=== PATIENT | female | born 1955 | race Caucasian/White ===

== ENCOUNTER 2017-10-17 11:58 | Emergency (ER) | payer MEDICARE, OTHER, SELFPAY ==
[2017-10-17 12:06] VITALS: BP 154/59; PULSE 74; RESP 18; TEMP 36.7; O2SAT 99
--- NOTE | 2017-10-17 12:09 | DI.RAD.S_ITS ---
PROCEDURE: XR TIBIA FUBULA RT 2V INDICATIONS: possible osteo TECHNIQUE: 2 views of the tibia and fibula were acquired. COMPARISON: None. FINDINGS: Bones: No fractures or dislocations. No suspicious bony lesions. Soft tissues: No suspicious soft tissue calcifications or masses. IMPRESSION: No source of current pain is identified, no underlying foreign body or gas in the soft tissues is seen and no osteomyelitis is found. Dictated by: Gustavo Land M.D. on 10/17/2017 at 12:44 Approved by: Gustavo Land M.D. on 10/17/2017 at 12:45
--- NOTE | 2017-10-17 12:12 | ED.EXTPRO ---
HPI - Extremity Problem <Debbie Mancini PA-C - Last Filed: 10/17/17 20:34> General Chief complaint: Extremity Injury, Lower Stated complaint: DR CALLED OVER ABOUT RIGHT LEG Time Seen by Provider: 10/17/17 12:09 Source: patient and old records reviewed Mode of arrival: ambulatory Limitations: no limitations History of Present Illness HPI Narrative: This 61-year-old female was sent by her PCP today to evaluate for possible recurrent osteomyelitis of her left lower extremity. She was admitted here and of last year for postoperative cellulitis and chronic osteomyelitis. She states that on Sunday night, she began to notice skin breakdown, pain, and pus draining from her left bryan area. She states that she had numerous cat flea bites in the area that she had been scratching, no other injury. She states that she has noted increased redness and pain as well as itching. She states that pain is deep like she had previously with infection. She has not had any fever. She denies other new symptoms such as swelling, chest pain, nausea, vomiting or appetite change. She notes that she is being referred for some type of a vascular study as well, not exactly sure what for Related Data Home Medications Medication Instructions Recorded Confirmed HYPROMELLOSE (Genteal Mild) 15 ml OP BID PRN #0 02/08/17 Lactobacillus acidophilus 1 tab PO QDAY #0 02/08/17 MULTIVITAMIN/MINERALS (ICAPS PLUS) 1 tab PO QDAY #0 02/08/17 albuterol sulfate [Proventil HFA] 1 puff INH Q6H PRN #0 02/08/17 aspirin 325 mg PO QDAY #0 02/08/17 clobetasol-emollient 1 dereje TOPICAL BID PRN #0 02/08/17 gabapentin [Neurontin] 1,200 mg PO QPM #0 02/08/17 ibuprofen 400 mg PO Q6HP PRN #0 02/08/17 insulin aspart U-100 [Novolog unit SQ TIDAC #0 02/08/17 PenFill U-100 Insulin] levothyroxine [Synthroid] 175 u PO QDAY #0 02/08/17 losartan-hydrochlorothiazide 1 tab PO QDAY #0 02/08/17 [Hyzaar] nifedipine [Afeditab CR] 30 mg PO QDAY #0 02/08/17 rosuvastatin [Crestor] 10 mg PO Q DAY #0 02/08/17 venlafaxine 150 mg PO QDAY #0 02/08/17 Previous Rx's Medication Instructions Recorded daptomycin [Cubicin] 400 mg IV QDAY #60 ml 02/12/17 insulin detemir U-100 [Levemir 38 u SQ HS #10 ml 02/12/17 U-100 Insulin] doxycycline hyclate 100 mg PO BID 10 Days #20 cap 10/17/17 Allergies Allergy/AdvReac Type Severity Reaction Status Date / Time codeine [CODEINE] Allergy Unknown Unverified 06/06/17 12:37 daptomycin Allergy Verified 10/17/17 12:08 ondansetron [From Zofran] AdvReac Vomiting Verified 10/17/17 12:08 Review of Systems <Debbie Mancini PA-C - Last Filed: 10/17/17 20:34> Review of Systems All systems reviewed & are unremarkable except as noted in HPI and below PFSH <Debbie Mancini PA-C - Last Filed: 10/17/17 20:34> Comment: No EtOH or tobacco, lives at home with Exam <Debbie Mancini PA-C - Last Filed: 10/17/17 20:34> Narrative Exam Narrative: GENERAL APPEARANCE: Patient sitting comfortably, in no distress. Appears well NECK/THYROID: Neck supple, no JVD. LUNGS: Clear to auscultation bilaterally. HEART: Regular rate and rhythm without murmur, normal S1, S2, no S3 or S4. ABDOMEN: Soft, NT, ND, + BS x 4 quadrants EXTREMITIES: No cyanosis or edema. No calf tenderness. R. toes absent, PT and DP pulses intact. NEUROLOGIC: Alert and oriented, normal speech and coordination. DERM: R. mid bryan there is shallow irregular ulceration, patchy (stage II) with a thin layer of overlying slough and some granulation tissue visual. This extends to the medial and posterior sides with normal skin in between. Largest dimension 9 cm. No pus or active drainage. There is mild circumferential erythema surrounding which is barely warm to touch. Area is minimally tender. There are multiple small scabbed, dry excoriations extending from the proximal anterior wound border proximally to about the knee. Similar lesions on the L. bryan with less pronounced erythema/rudiness Initial Vital Signs Initial Vital Signs: Vital Signs Temperature 98.1 F 10/17/17 12:06 Pulse Rate 74 10/17/17 12:06 Respiratory Rate 18 10/17/17 12:06 Blood Pressure 154/59 H 10/17/17 12:06 Pulse Oximetry 99 10/17/17 12:06 <Jluis Ross DO - Last Filed: 10/18/17 07:10> Initial Vital Signs Initial Vital Signs: Vital Signs Temperature 98.1 F 10/17/17 12:06 Pulse Rate 74 10/17/17 12:06 Respiratory Rate 18 10/17/17 12:06 Blood Pressure 154/59 H 10/17/17 12:06 Pulse Oximetry 99 10/17/17 12:06 Course <Debbie Mancini PA-C - Last Filed: 10/17/17 20:34> Additional Information: Reviewed exam findings and diagnostics with Dr. Ross who agrees reasonable to treat as outpatient. She does not appear to need IV antibiotic today. Due to her history, will have her follow up with Dr. Razo at wound care whom she was seeing after her last hospitalization. She is agreeable with this plan. She is scratching at her legs frequently and we discussed this is undoubtedly contributing to or causing her ulcers and infection. We talked about other ways to cope with the itching. She agreed to return if any acutely worsening symptoms prior to her appointment with wound care Orders Ordered: ED Orders 10/17/17 12:00 Basic Metabolic Panel Stat C-Reactive Protein Quant Stat Complete Blood Count AUTO DIFF Stat Erythrocyte Sedimentation Rate Stat Lactate (Lactic Acid) Stat Procalcitonin Stat 10/17/17 12:09 XR tibia fibula RT 2V Stat 10/17/17 13:23 Blood Culture Stat Vital Signs - 8 hr 10/17/17 13:40 10/17/17 14:48 Temperature 98.0 F 98.9 F Pulse Rate 70 73 Respiratory Rate 16 16 Blood Pressure [Left Arm] 144/44 H 126/49 H Pulse Oximetry 97 96 <Jluis Ross DO - Last Filed: 10/18/17 07:10> Orders Ordered: ED Orders 10/17/17 12:00 Basic Metabolic Panel Stat C-Reactive Protein Quant Stat Complete Blood Count AUTO DIFF Stat Erythrocyte Sedimentation Rate Stat Lactate (Lactic Acid) Stat Procalcitonin Stat 10/17/17 12:09 XR tibia fibula RT 2V Stat 10/17/17 13:23 Blood Culture Stat Vital Signs - 8 hr 10/17/17 13:40 10/17/17 14:48 Temperature 98.0 F 98.9 F Pulse Rate 70 73 Respiratory Rate 16 16 Blood Pressure [Left Arm] 144/44 H 126/49 H Pulse Oximetry 97 96 MDM - Extremity (Nontraumatic) <Debbie Mancini PA-C - Last Filed: 10/17/17 20:34> Lab Data Result diagrams: 10/17/17 12:00 10/17/17 12:00 Lab Results 10/17/17 10/17/17 10/17/17 Range/Units 12:00 12:00 12:00 WBC 8.9 (4.5-11.0) X10^3/uL RBC 4.82 (4.0-5.2) X10^6/uL Hgb 14.3 (12.0-16.0) g/dL Hct 42.5 (36-46) % MCV 88.3 (80-100) fL MCH 29.6 (26-34) PG MCHC 33.6 (30-36) % RDW 13.4 (11.6-14.8) % Plt Count 280 (150-400) X10^3/uL Neut % (Auto) 54.9 (50-75) % Lymph % (Auto) 25.6 (25-40) % Calhoun % (Auto) 8.6 (3-14) % Eos % (Auto) 9.5 H (2-4) % Baso % (Auto) 1.4 (0-2) % Neut # (Auto) 4900 (0360-9624) /uL ESR 41 H (0-20) MM/HR Sodium Cancelled Potassium Cancelled Chloride Cancelled Carbon Dioxide Cancelled BUN Cancelled Creatinine Cancelled Estimated GFR Cancelled BUN/Creatinine Ratio Cancelled Glucose Cancelled Lactate (0.7-2.1) mmol/L Calcium Cancelled C-Reactive Protein (<1.0) mg/dL Procalcitonin < 0.05 (<0.5) ng/mL Specimen Hemolysis Cancelled 10/17/17 10/17/17 Range/Units 12:00 12:00 WBC (4.5-11.0) X10^3/uL RBC (4.0-5.2) X10^6/uL Hgb (12.0-16.0) g/dL Hct (36-46) % MCV (80-100) fL MCH (26-34) PG MCHC (30-36) % RDW (11.6-14.8) % Plt Count (150-400) X10^3/uL Neut % (Auto) (50-75) % Lymph % (Auto) (25-40) % Calhoun % (Auto) (3-14) % Eos % (Auto) (2-4) % Baso % (Auto) (0-2) % Neut # (Auto) (7102-0539) /uL ESR (0-20) MM/HR Sodium 139 Potassium 5.0 Chloride 98 Carbon Dioxide 32 BUN 56 H Creatinine 1.00 Estimated GFR 56.4 L BUN/Creatinine Ratio 56.0 H Glucose 304 H Lactate 0.8 (0.7-2.1) mmol/L Calcium 9.8 C-Reactive Protein 2.5 H (<1.0) mg/dL Procalcitonin (<0.5) ng/mL Specimen Hemolysis Imaging Data extremity: Radiologist's impression: [place] [address] XRay Report Signed Patient: Kemi Alberto MR#: [id number] : 1955 Acct:[id number] Age/Sex: 61 / F Date of Service: 10/17/17 Loc: ED Accession Number: [id number] Procedure: XR tibia fibula RT 2V Ordering Provider: Jluis Ross D.O. PROCEDURE: XR TIBIA FUBULA RT 2V INDICATIONS: possible osteo TECHNIQUE: 2 views of the tibia and fibula were acquired. COMPARISON: None. FINDINGS: Bones: No fractures or dislocations. No suspicious bony lesions. Soft tissues: No suspicious soft tissue calcifications or masses. IMPRESSION: No source of current pain is identified, no underlying foreign body or gas in the soft tissues is seen and no osteomyelitis is found. Dictated by: Gustavo Land M.D. on 10/17/2017 at 12:44 Approved by: Gustavo Land M.D. on 10/17/2017 at 12:45 <Jluis Ross DO - Last Filed: 10/18/17 07:10> Lab Data Lab Results 10/17/17 10/17/17 10/17/17 Range/Units 12:00 12:00 12:00 WBC 8.9 (4.5-11.0) X10^3/uL RBC 4.82 (4.0-5.2) X10^6/uL Hgb 14.3 (12.0-16.0) g/dL Hct 42.5 (36-46) % MCV 88.3 (80-100) fL MCH 29.6 (26-34) PG MCHC 33.6 (30-36) % RDW 13.4 (11.6-14.8) % Plt Count 280 (150-400) X10^3/uL Neut % (Auto) 54.9 (50-75) % Lymph % (Auto) 25.6 (25-40) % Calhoun % (Auto) 8.6 (3-14) % Eos % (Auto) 9.5 H (2-4) % Baso % (Auto) 1.4 (0-2) % Neut # (Auto) 4900 (8322-0788) /uL ESR 41 H (0-20) MM/HR Sodium Cancelled Potassium Cancelled Chloride Cancelled Carbon Dioxide Cancelled BUN Cancelled Creatinine Cancelled Estimated GFR Cancelled BUN/Creatinine Ratio Cancelled Glucose Cancelled Lactate (0.7-2.1) mmol/L Calcium Cancelled C-Reactive Protein (<1.0) mg/dL Procalcitonin < 0.05 (<0.5) ng/mL Specimen Hemolysis Cancelled 10/17/17 10/17/17 Range/Units 12:00 12:00 WBC (4.5-11.0) X10^3/uL RBC (4.0-5.2) X10^6/uL Hgb (12.0-16.0) g/dL Hct (36-46) % MCV (80-100) fL MCH (26-34) PG MCHC (30-36) % RDW (11.6-14.8) % Plt Count (150-400) X10^3/uL Neut % (Auto) (50-75) % Lymph % (Auto) (25-40) % Calhoun % (Auto) (3-14) % Eos % (Auto) (2-4) % Baso % (Auto) (0-2) % Neut # (Auto) (9804-9050) /uL ESR (0-20) MM/HR Sodium 139 Potassium 5.0 Chloride 98 Carbon Dioxide 32 BUN 56 H Creatinine 1.00 Estimated GFR 56.4 L BUN/Creatinine Ratio 56.0 H Glucose 304 H Lactate 0.8 (0.7-2.1) mmol/L Calcium 9.8 C-Reactive Protein 2.5 H (<1.0) mg/dL Procalcitonin (<0.5) ng/mL Specimen Hemolysis Discharge Plan Departure Patient Disposition: Home Clinical Impression: Cellulitis and abscess of leg Discharge Date/Time: 10/17/17 15:08 Interventions: ED Discharge Assessment Last Done: 10/17/17 15:08 Instructions: DI for Cellulitis -- Adult Activity Restrictions/Additional Instructions: You should return as we talked about if you have any acutely worsening symptoms, such as increased pain, swelling, redness, or new fever. Otherwise, please start on doxycycline today. I have sent in a prescription for that for you to [facility]. Your last staph infection was treatable by this. This infection is not necessarily related to that last infection that you had from your wound, but has cause some ulcerated skin on your leg. Please call or stop by Dr. Razo's office today and make sure you get in for a follow-up appointment in a few days to assess progress on the antibiotics. You must continuing to scratch this area or it is likely that the infection will get worse. You can try Zyrtec (cetirizine) 10 mg 1-2 times daily for the itching. This is less likely to make you sleepy than Benadryl. Apply an ice pack or heat if you feel itchy to interrupt the itch cycle. Keep the legs wrapped if you need to to avoid contaminating the wounds Prescriptions: New doxycycline hyclate 100 mg capsule 100 mg PO BID 10 Days Qty: 20 RF: 0 No Action clobetasol-emollient 0.05 % cream 1 dereje Topical BID PRNQty: 0 RF: 0 losartan-hydrochlorothiazide [Hyzaar] 100 MG/25 MG tablet 1 tab PO QDAY Qty: 0 RF: 0 HYPROMELLOSE (Genteal Mild) 15 ml OP BID PRNQty: 0 RF: 0 venlafaxine 150 MG capsule,extended release 24hr 150 mg PO QDAY Qty: 0 RF: 0 rosuvastatin [Crestor] 10 MG tablet 10 mg PO Q DAY Qty: 0 RF: 0 levothyroxine [Synthroid] 75 MCG tablet 175 u PO QDAY Qty: 0 RF: 0 gabapentin [Neurontin] 300 MG capsule 1,200 mg PO QPM Qty: 0 RF: 0 nifedipine [Afeditab CR] 30 MG tablet extended release 30 mg PO QDAY Qty: 0 RF: 0 insulin aspart U-100 [Novolog PenFill U-100 Insulin] 100 UNIT/1 ML cartridge SQ TIDAC Qty: 0 RF: 0 aspirin 325 MG tablet,delayed release (DR/EC) 325 mg PO QDAY Qty: 0 RF: 0 albuterol sulfate [Proventil HFA] 90 MCG/PUFF HFA aerosol inhaler 1 puff INH Q6H PRNQty: 0 RF: 0 ibuprofen 400 MG tablet 400 mg PO Q6HP PRNQty: 0 RF: 0 Lactobacillus acidophilus 1 EACH capsule 1 tab PO QDAY Qty: 0 RF: 0 MULTIVITAMIN/MINERALS (ICAPS PLUS) 1 tab PO QDAY Qty: 0 RF: 0 insulin detemir U-100 [Levemir U-100 Insulin] 100 UNIT/1 ML solution 38 u SQ HS Qty: 10 RF: 0 daptomycin [Cubicin] 500 MG recon soln 400 mg IV QDAY Qty: 60 RF: 0 Referrals: Reshma Lemus MD [Primary Care Provider] - Mook Razo MD [Physician] - <Jluis Ross DO - Last Filed: 10/18/17 07:10> Cosign ED Attending Jus Attestation: I was available for consultation during this patient's emergency department encounter
--- NOTE | 2017-10-17 12:16 | PC.NURSE ---
rt lower leg wounds r/t scratching flea bites reports worsening over several days, mild redness/tenderness at site, distal cms baseline per pt, denies nausea/fever/chills/dizziness or other sx
--- NOTE | 2017-10-17 12:27 | ED_ITS ---
HPI - Extremity Problem <Debbie Mancini PA-C - Last Filed: 10/17/17 20:34> General Chief complaint: Extremity Injury, Lower Stated complaint: DR CALLED OVER ABOUT RIGHT LEG Time Seen by Provider: 10/17/17 12:09 Source: patient and old records reviewed Mode of arrival: ambulatory Limitations: no limitations History of Present Illness HPI Narrative: This 61-year-old female was sent by her PCP today to evaluate for possible recurrent osteomyelitis of her left lower extremity. She was admitted here and of last year for postoperative cellulitis and chronic osteomyelitis. She states that on Sunday night, she began to notice skin breakdown, pain, and pus draining from her left bryan area. She states that she had numerous cat flea bites in the area that she had been scratching, no other injury. She states that she has noted increased redness and pain as well as itching. She states that pain is deep like she had previously with infection. She has not had any fever. She denies other new symptoms such as swelling, chest pain, nausea, vomiting or appetite change. She notes that she is being referred for some type of a vascular study as well, not exactly sure what for Related Data Home Medications Medication Instructions Recorded Confirmed HYPROMELLOSE (Genteal Mild) 15 ml OP BID PRN #0 02/08/17 Lactobacillus acidophilus 1 tab PO QDAY #0 02/08/17 MULTIVITAMIN/MINERALS (ICAPS PLUS) 1 tab PO QDAY #0 02/08/17 albuterol sulfate [Proventil HFA] 1 puff INH Q6H PRN #0 02/08/17 aspirin 325 mg PO QDAY #0 02/08/17 clobetasol-emollient 1 dereje TOPICAL BID PRN #0 02/08/17 gabapentin [Neurontin] 1,200 mg PO QPM #0 02/08/17 ibuprofen 400 mg PO Q6HP PRN #0 02/08/17 insulin aspart U-100 [Novolog unit SQ TIDAC #0 02/08/17 PenFill U-100 Insulin] levothyroxine [Synthroid] 175 u PO QDAY #0 02/08/17 losartan-hydrochlorothiazide 1 tab PO QDAY #0 02/08/17 [Hyzaar] nifedipine [Afeditab CR] 30 mg PO QDAY #0 02/08/17 rosuvastatin [Crestor] 10 mg PO Q DAY #0 02/08/17 venlafaxine 150 mg PO QDAY #0 02/08/17 Previous Rx's Medication Instructions Recorded daptomycin [Cubicin] 400 mg IV QDAY #60 ml 02/12/17 insulin detemir U-100 [Levemir 38 u SQ HS #10 ml 02/12/17 U-100 Insulin] doxycycline hyclate 100 mg PO BID 10 Days #20 cap 10/17/17 Allergies Allergy/AdvReac Type Severity Reaction Status Date / Time codeine [CODEINE] Allergy Unknown Unverified 06/06/17 12:37 daptomycin Allergy Verified 10/17/17 12:08 ondansetron [From Zofran] AdvReac Vomiting Verified 10/17/17 12:08 Review of Systems <Debbie Mancini PA-C - Last Filed: 10/17/17 20:34> Review of Systems All systems reviewed & are unremarkable except as noted in HPI and below PFSH <Debbie Mancini PA-C - Last Filed: 10/17/17 20:34> Comment: No EtOH or tobacco, lives at home with Exam <Debbie Mancini PA-C - Last Filed: 10/17/17 20:34> Narrative Exam Narrative: GENERAL APPEARANCE: Patient sitting comfortably, in no distress. Appears well NECK/THYROID: Neck supple, no JVD. LUNGS: Clear to auscultation bilaterally. HEART: Regular rate and rhythm without murmur, normal S1, S2, no S3 or S4. ABDOMEN: Soft, NT, ND, + BS x 4 quadrants EXTREMITIES: No cyanosis or edema. No calf tenderness. R. toes absent, PT and DP pulses intact. NEUROLOGIC: Alert and oriented, normal speech and coordination. DERM: R. mid bryan there is shallow irregular ulceration, patchy (stage II) with a thin layer of overlying slough and some granulation tissue visual. This extends to the medial and posterior sides with normal skin in between. Largest dimension 9 cm. No pus or active drainage. There is mild circumferential erythema surrounding which is barely warm to touch. Area is minimally tender. There are multiple small scabbed, dry excoriations extending from the proximal anterior wound border proximally to about the knee. Similar lesions on the L. bryan with less pronounced erythema/rudiness Initial Vital Signs Initial Vital Signs: Vital Signs Temperature 98.1 F 10/17/17 12:06 Pulse Rate 74 10/17/17 12:06 Respiratory Rate 18 10/17/17 12:06 Blood Pressure 154/59 H 10/17/17 12:06 Pulse Oximetry 99 10/17/17 12:06 <Jluis Ross DO - Last Filed: 10/18/17 07:10> Initial Vital Signs Initial Vital Signs: Vital Signs Temperature 98.1 F 10/17/17 12:06 Pulse Rate 74 10/17/17 12:06 Respiratory Rate 18 10/17/17 12:06 Blood Pressure 154/59 H 10/17/17 12:06 Pulse Oximetry 99 10/17/17 12:06 Course <Debbie Mancini PA-C - Last Filed: 10/17/17 20:34> Additional Information: Reviewed exam findings and diagnostics with Dr. Ross who agrees reasonable to treat as outpatient. She does not appear to need IV antibiotic today. Due to her history, will have her follow up with Dr. Razo at wound care whom she was seeing after her last hospitalization. She is agreeable with this plan. She is scratching at her legs frequently and we discussed this is undoubtedly contributing to or causing her ulcers and infection. We talked about other ways to cope with the itching. She agreed to return if any acutely worsening symptoms prior to her appointment with wound care Orders Ordered: ED Orders 10/17/17 12:00 Basic Metabolic Panel Stat C-Reactive Protein Quant Stat Complete Blood Count AUTO DIFF Stat Erythrocyte Sedimentation Rate Stat Lactate (Lactic Acid) Stat Procalcitonin Stat 10/17/17 12:09 XR tibia fibula RT 2V Stat 10/17/17 13:23 Blood Culture Stat Vital Signs - 8 hr 10/17/17 13:40 10/17/17 14:48 Temperature 98.0 F 98.9 F Pulse Rate 70 73 Respiratory Rate 16 16 Blood Pressure [Left Arm] 144/44 H 126/49 H Pulse Oximetry 97 96 <Jluis Ross DO - Last Filed: 10/18/17 07:10> Orders Ordered: ED Orders 10/17/17 12:00 Basic Metabolic Panel Stat C-Reactive Protein Quant Stat Complete Blood Count AUTO DIFF Stat Erythrocyte Sedimentation Rate Stat Lactate (Lactic Acid) Stat Procalcitonin Stat 10/17/17 12:09 XR tibia fibula RT 2V Stat 10/17/17 13:23 Blood Culture Stat Vital Signs - 8 hr 10/17/17 13:40 10/17/17 14:48 Temperature 98.0 F 98.9 F Pulse Rate 70 73 Respiratory Rate 16 16 Blood Pressure [Left Arm] 144/44 H 126/49 H Pulse Oximetry 97 96 MDM - Extremity (Nontraumatic) <Debbie Mancini PA-C - Last Filed: 10/17/17 20:34> Lab Data Result diagrams: 10/17/17 12:00 10/17/17 12:00 Lab Results 10/17/17 10/17/17 10/17/17 Range/Units 12:00 12:00 12:00 WBC 8.9 (4.5-11.0) X10^3/uL RBC 4.82 (4.0-5.2) X10^6/uL Hgb 14.3 (12.0-16.0) g/dL Hct 42.5 (36-46) % MCV 88.3 (80-100) fL MCH 29.6 (26-34) PG MCHC 33.6 (30-36) % RDW 13.4 (11.6-14.8) % Plt Count 280 (150-400) X10^3/uL Neut % (Auto) 54.9 (50-75) % Lymph % (Auto) 25.6 (25-40) % [place] % (Auto) 8.6 (3-14) % Eos % (Auto) 9.5 H (2-4) % Baso % (Auto) 1.4 (0-2) % Neut # (Auto) 4900 (0446-5272) /uL ESR 41 H (0-20) MM/HR Sodium Cancelled Potassium Cancelled Chloride Cancelled Carbon Dioxide Cancelled BUN Cancelled Creatinine Cancelled Estimated GFR Cancelled BUN/Creatinine Ratio Cancelled Glucose Cancelled Lactate (0.7-2.1) mmol/L Calcium Cancelled C-Reactive Protein (<1.0) mg/dL Procalcitonin < 0.05 (<0.5) ng/mL Specimen Hemolysis Cancelled 10/17/17 10/17/17 Range/Units 12:00 12:00 WBC (4.5-11.0) X10^3/uL RBC (4.0-5.2) X10^6/uL Hgb (12.0-16.0) g/dL Hct (36-46) % MCV (80-100) fL MCH (26-34) PG MCHC (30-36) % RDW (11.6-14.8) % Plt Count (150-400) X10^3/uL Neut % (Auto) (50-75) % Lymph % (Auto) (25-40) % [place] % (Auto) (3-14) % Eos % (Auto) (2-4) % Baso % (Auto) (0-2) % Neut # (Auto) (8668-6091) /uL ESR (0-20) MM/HR Sodium 139 Potassium 5.0 Chloride 98 Carbon Dioxide 32 BUN 56 H Creatinine 1.00 Estimated GFR 56.4 L BUN/Creatinine Ratio 56.0 H Glucose 304 H Lactate 0.8 (0.7-2.1) mmol/L Calcium 9.8 C-Reactive Protein 2.5 H (<1.0) mg/dL Procalcitonin (<0.5) ng/mL Specimen Hemolysis Imaging Data extremity: Radiologist's impression: [place] [id number] XRay Report Signed Patient: Kemi Alberto MR#: [id number] : 1955 Acct:[id number] Age/Sex: 61 / F Date of Service: 10/17/17 Loc: ED Accession Number: [id number] Procedure: XR tibia fibula RT 2V Ordering Provider: Jluis Ross D.O. PROCEDURE: XR TIBIA FUBULA RT 2V INDICATIONS: possible osteo TECHNIQUE: 2 views of the tibia and fibula were acquired. COMPARISON: None. FINDINGS: Bones: No fractures or dislocations. No suspicious bony lesions. Soft tissues: No suspicious soft tissue calcifications or masses. IMPRESSION: No source of current pain is identified, no underlying foreign body or gas in the soft tissues is seen and no osteomyelitis is found. Dictated by: Gustavo Land M.D. on 10/17/2017 at 12:44 Approved by: Gustavo Land M.D. on 10/17/2017 at 12:45 <Jluis Ross DO - Last Filed: 10/18/17 07:10> Lab Data Lab Results 10/17/17 10/17/17 10/17/17 Range/Units 12:00 12:00 12:00 WBC 8.9 (4.5-11.0) X10^3/uL RBC 4.82 (4.0-5.2) X10^6/uL Hgb 14.3 (12.0-16.0) g/dL Hct 42.5 (36-46) % MCV 88.3 (80-100) fL MCH 29.6 (26-34) PG MCHC 33.6 (30-36) % RDW 13.4 (11.6-14.8) % Plt Count 280 (150-400) X10^3/uL Neut % (Auto) 54.9 (50-75) % Lymph % (Auto) 25.6 (25-40) % [place] % (Auto) 8.6 (3-14) % Eos % (Auto) 9.5 H (2-4) % Baso % (Auto) 1.4 (0-2) % Neut # (Auto) 4900 (4495-2260) /uL ESR 41 H (0-20) MM/HR Sodium Cancelled Potassium Cancelled Chloride Cancelled Carbon Dioxide Cancelled BUN Cancelled Creatinine Cancelled Estimated GFR Cancelled BUN/Creatinine Ratio Cancelled Glucose Cancelled Lactate (0.7-2.1) mmol/L Calcium Cancelled C-Reactive Protein (<1.0) mg/dL Procalcitonin < 0.05 (<0.5) ng/mL Specimen Hemolysis Cancelled 10/17/17 10/17/17 Range/Units 12:00 12:00 WBC (4.5-11.0) X10^3/uL RBC (4.0-5.2) X10^6/uL Hgb (12.0-16.0) g/dL Hct (36-46) % MCV (80-100) fL MCH (26-34) PG MCHC (30-36) % RDW (11.6-14.8) % Plt Count (150-400) X10^3/uL Neut % (Auto) (50-75) % Lymph % (Auto) (25-40) % [place] % (Auto) (3-14) % Eos % (Auto) (2-4) % Baso % (Auto) (0-2) % Neut # (Auto) (4803-7032) /uL ESR (0-20) MM/HR Sodium 139 Potassium 5.0 Chloride 98 Carbon Dioxide 32 BUN 56 H Creatinine 1.00 Estimated GFR 56.4 L BUN/Creatinine Ratio 56.0 H Glucose 304 H Lactate 0.8 (0.7-2.1) mmol/L Calcium 9.8 C-Reactive Protein 2.5 H (<1.0) mg/dL Procalcitonin (<0.5) ng/mL Specimen Hemolysis Discharge Plan Departure Patient Disposition: Home Clinical Impression: Cellulitis and abscess of leg Discharge Date/Time: 10/17/17 15:08 Interventions: ED Discharge Assessment Last Done: 10/17/17 15:08 Instructions: DI for Cellulitis -- Adult Activity Restrictions/Additional Instructions: You should return as we talked about if you have any acutely worsening symptoms , such as increased pain, swelling, redness, or new fever. Otherwise, please start on doxycycline today. I have sent in a prescription for that for you to pick out hand. Your last staph infection was treatable by this. This infection is not necessarily related to that last infection that you had from your wound, but has cause some ulcerated skin on your leg. Please call or stop by Dr. Razo 's office today and make sure you get in for a follow-up appointment in a few days to assess progress on the antibiotics. You must continuing to scratch this area or it is likely that the infection will get worse. You can try Zyrtec (cetirizine) 10 mg 1-2 times daily for the itching. This is less likely to make you sleepy than Benadryl. Apply an ice pack or heat if you feel itchy to interrupt the itch cycle. Keep the legs wrapped if you need to to avoid contaminating the wounds Prescriptions: New doxycycline hyclate 100 mg capsule 100 mg PO BID 10 Days Qty: 20 RF: 0 No Action clobetasol-emollient 0.05 % cream 1 dereje Topical BID PRNQty: 0 RF: 0 losartan-hydrochlorothiazide [Hyzaar] 100 MG/25 MG tablet 1 tab PO QDAY Qty: 0 RF: 0 HYPROMELLOSE (Genteal Mild) 15 ml OP BID PRNQty: 0 RF: 0 venlafaxine 150 MG capsule,extended release 24hr 150 mg PO QDAY Qty: 0 RF: 0 rosuvastatin [Crestor] 10 MG tablet 10 mg PO Q DAY Qty: 0 RF: 0 levothyroxine [Synthroid] 75 MCG tablet 175 u PO QDAY Qty: 0 RF: 0 gabapentin [Neurontin] 300 MG capsule 1,200 mg PO QPM Qty: 0 RF: 0 nifedipine [Afeditab CR] 30 MG tablet extended release 30 mg PO QDAY Qty: 0 RF: 0 insulin aspart U-100 [Novolog PenFill U-100 Insulin] 100 UNIT/1 ML cartridge SQ TIDAC Qty: 0 RF: 0 aspirin 325 MG tablet,delayed release (DR/EC) 325 mg PO QDAY Qty: 0 RF: 0 albuterol sulfate [Proventil HFA] 90 MCG/PUFF HFA aerosol inhaler 1 puff INH Q6H PRNQty: 0 RF: 0 ibuprofen 400 MG tablet 400 mg PO Q6HP PRNQty: 0 RF: 0 Lactobacillus acidophilus 1 EACH capsule 1 tab PO QDAY Qty: 0 RF: 0 MULTIVITAMIN/MINERALS (ICAPS PLUS) 1 tab PO QDAY Qty: 0 RF: 0 insulin detemir U-100 [Levemir U-100 Insulin] 100 UNIT/1 ML solution 38 u SQ HS Qty: 10 RF: 0 daptomycin [Cubicin] 500 MG recon soln 400 mg IV QDAY Qty: 60 RF: 0 Referrals: Reshma Lemus MD [Primary Care Provider] - Mook Razo MD [Physician] - <Jluis Ross DO - Last Filed: 10/18/17 07:10> Cosign ED Attending Jus Attestation: I was available for consultation during this patient's emergency department encounter
[2017-10-17 13:17] LABS: Add Manual Diff / Slide Review NO; Basophils Percent Auto 1.4 % (0-2); Eosinophils Percent Auto 9.5 % (2-4); Hematocrit 42.5 % (36-46); Hemoglobin 14.3 g/dL (12.0-16.0); Lymphocytes Percent Auto 25.6 % (25-40); Mean Corpuscular HGB Conc 33.6 % (30-36); Mean Corpuscular Hemoglobin 29.6 PG (26-34); Mean Corpuscular Volume 88.3 fL (80-100); Monocytes Percent Auto 8.6 % (3-14); Neutrophils Absolute Auto 4900 /uL (3000-5900); Neutrophils Percent Auto 54.9 % (50-75); Platelet Count 280 X10^3/uL (150-400); Red Blood Cell Count 4.82 X10^6/uL (4.0-5.2); Red Cell Distribution Width 13.4 % (11.6-14.8); White Blood Cell Count 8.9 X10^3/uL (4.5-11.0)
[2017-10-17 13:29] LABS: Lactate (Lactic Acid) 0.8 mmol/L (0.7-2.1)
[2017-10-17 13:34] LABS: Blood Urea Nitrogen 56 mg/dL (7-17); C-Reactive Protein Quant 2.5 mg/dL (<1.0); Calcium 9.8 mg/dL (8.4-10.2); Carbon Dioxide 32 mmol/L (22-32); Chloride 98 mmol/L (98-107); Estimated Glomerular Filt Rate 56.4 mL/min (>60); Glucose 304 mg/dL (80-110); Sodium 139 mmol/L (137-145)
[2017-10-17 13:37] LABS: HEMOLYSIS 71 (0-50)
[2017-10-17 13:40] VITALS: BP 144/44; PULSE 70; RESP 16; TEMP 36.7; O2SAT 97
[2017-10-17 13:57] LABS: Procalcitonin < 0.05 ng/mL (<0.5)
[2017-10-17 13:58] LABS: Erythrocyte Sedimentation Rate 41 MM/HR (0-20)
[2017-10-17 14:48] VITALS: BP 126/49; PULSE 73; RESP 16; TEMP 37.2; O2SAT 96
== END 2017-10-17 15:08 | disposition home or self-care (01) ==
PROVIDERS: Emergency Medicine; Emergency Provider Internal Medicine; PCP Family Medicine
DX: L03.115 Cellulitis of right lower limb (principal); L02.415 Cutaneous abscess of right lower limb
CPT/HCPCS: 36591; 73590; 80048; 82962; 83605; 84145; 85025; 85651; 86140; 87040; 99283; 99284

== ENCOUNTER → 2017-10-19 10:56 | Outpatient (CLI) | payer MEDICARE, OTHER, SELFPAY | PROVIDERS: PCP Family Medicine; Visit Provider Internal Medicine | DX: S91.002A Unspecified open wound, left ankle, initial encounter (principal); S81.801A Unspecified open wound, right lower leg, initial encounter; S81.802A Unspecified open wound, left lower leg, initial encounter; L29.9 Pruritus, unspecified; E11.628 Type 2 diabetes mellitus with other skin complications | CPT/HCPCS: 11042 ==

== ENCOUNTER → 2017-10-24 08:45 | Outpatient (CLI) | payer MEDICARE, OTHER, SELFPAY ==
--- NOTE | 2017-10-24 | OV.WND_ITS ---
Progress Note Details Patient Name: Kemi Alberto Patient Number: [id number] PatientPatientDate: 10/24/2017 Clinician: Romina Lamar Physician / Waist Presser: Mook Razo SUBJECTIVE Chief Complaint This information was obtained from the patient Cellulitis bilateral lower extremities. Allergies codeine (Reaction: nausea) HPI This information was obtained from the patient 10/24/17. Seen by Dr. Razo. The patient does not report significant pain or increased drainage associated with the chronic bilateral lower leg trauma wounds since her last visit and she feels the leg swelling and redness have improved since starting on doxycycline for cellulitis associated with the wounds. 10/19/17. Seen by Dr. Razo. The patient returns our clinic with chronic bilateral lower leg trauma wounds that have occurred as a result of excoriation's associated with a rash and pruritus of the legs. She's now on doxycycline and feels the redness is improving. She does not report significant drainage however has a history of this in the past as well as a recent right partial foot amputation. She has a history of poor compliance regarding her diabetes and her blood sugar today is 329. 04/25/17. Seen by Dr. Razo. The patient does not report significant pain or increased drainage associated with the chronic right foot is transmetatarsal amputation site since her last visit. 04/18/17. Seen by Dr. Razo. The patient does not report significant pain or increased drainage associated with the chronic right foot diabetic ulcer that started last November following wound dehiscence of a TMA amputation site. She's offloading with a knee scooter and is now off of antibiotic. 04/09/17 See by Jules Waller PA-C. The patient reports that she has been up on her feet more than before. She does not report increased drainage. Blood sugars continue to be above 150, and she continues on Prednisone through the end of the month per Pulmonology. 04/04/17. Seen by Dr. Razo. The patient does not report significant pain or increased drainage associated with the chronic right foot is transmetatarsal amputation site since her last visit. She is now off of IV antibiotics based on a recent eosinophilic pneumonia thought to be caused by IV daptomycin. She is also not currently undergoing hyperbaric oxygen therapy as her primary care provider has advised to hold this following a recent pneumonia. 03/27/17. Seen by Jules Waller PA-C. The patient reports that she was recently discharged from [facility] in [place] after a severe pulmonary reaction to Daptomycin. She is currently on supplemental oxygen and reports that her strength is returning. While in hospital her CUONG dressing was not changed. She is on an oral antibiotic prescribed at discharge, but does not recall the name of it. In addition, her blood sugars have been running >150 since discharge. 03/19/17. Seen by Dr. Razo. The patient does not report pain nor increased drainage associated with chronic right foot transmetatarsal amputation site and she continues on IV daptomycin for chronic osteomyelitis of the foot without reported adverse side effects, fevers, feeling unwell. She is also tolerating hyperbaric oxygen therapy and her previously reported left and right ear pain have resolved. 03/12/17. Seen by Dr. Razo. The patient reports improvement in terms of pain associated with the right foot transmetatarsal amputation and continues on IV daptomycin for associated chronic osteomyelitis without reporting adverse side effects, fevers, or feeling unwell in general. 03/05/17. Seen by Dr. Razo. The patient reports improvement in terms of pain associated with the right foot transmetatarsal amputation and continues on IV daptomycin for associated chronic osteomyelitis. She reports elevated blood sugars in the 200s noting her high dose of short acting insulin frequently results in blood sugars in the 50's despite mostly adhering to a consistent diabetic diet. She's offloading the foot as recommended using an offloading shoe and knee scooter. She's also been authorized for HBOT and is tolerating negative pressure wound therapy which is treating the dehisced surgical wound without difficulty. 03/01/17. Seen by Dr. Razo. The patient reports a significant improvement in pain associated with the right foot transmetatarsal amputation site. She does not report significant drainage and continues on IV daptomycin for underlying chronic osteomyelitis and does not report adverse side effects, fevers, or feeling unwell in general. Her blood sugars are also between 150 and 200 mostly. 02/21/17. Seen by Dr. Razo. The patient reports a significant improvement in pain associated with the right foot transmetatarsal amputation site. This was performed November due to deterioration of the Yusuf grade 3 chronic diabetic ulcer and associated abscess. She is now being treated with IV daptomycin for osteomyelitis that occurred postoperatively and has been approved for hyperbaric oxygen therapy noting the surgical wound has dehisced and she's recently been admitted for cellulitis of the right lower leg. 02/15/17. Seen by Dr. Razo. The patient returns to our clinic following admission to the hospital last week for cellulitis of the right lower leg associated with wound dehiscence of the right foot transmetatarsal amputation which was performed in November. Her recent culture grew staph and enterococcus faecalis and she is now on IV daptomycin. She reports some moderate pain at the forefoot and her MRI suggested osteomyelitis at the first metatarsal stump. She'd been treated over the previous year for a Yusuf grade 3 diabetic ulcer at the right first MTPJ and prior to the amputation this ulcer deteriorated significantly at which time she was transferred back to her java web application developer, Dr. Bañuelos, who referred her on to Dr. Purvis who performed the TMA. Her diabetes has historically been poorly controlled however her recent A1c has decreased to 7.7. She also had a history of noncompliance in terms of weightbearing. 12/05/16. Seen by Jules Waller PA-C. The patient reports continued difficulty keeping her blood sugars under control. She has had sugars recently as high as 450 and as low as 50. She is working with endocrinology on this issue and is feeling fatigued by the lack of perceived progress so far. Yayo ulcers have not had increased drainage. 11/28/16. Seen by Dr. Razo. The patient reports some persistent intermittent pain associated with the chronic right plantar foot diabetic ulcer. She continues on antibiotics for underlying chronic osteomyelitis of the first MTPJ. She has an MRI scheduled on to reevaluate the osteomyelitis and is awaiting an appointment with Dr. Bañuelos, podiatry, for further evaluation. She admits to not using her offloading shoe at all times and has been wearing her slipper around the house. She has also not been able start hyperbaric oxygen therapy as she states she cannot afford the chest x-ray which is required prior to starting treatment. 11/21/16. Seen by Dr. Razo. The patient reports persistent pain associated with the right foot and ankle and she was started on doxycycline following her visit last week to treat chronic osteomyelitis of the right first MTPJ. She does not report adverse side effects nor fevers or feeling unwell. She's also wearing her offloading shoe as recommended and minimizing walking as much as possible. Her bloods sugars have been relatively well controlled recently with most below 150.Of note, her arterial Doppler from July 2015 was relatively unremarkable with biphasic flow in the right lower leg and triphasic in the left. Also an MRI from May of this year showed a small abscess adjacent to the first MTPJ along with possible osteomyelitis at that site. Subsequent serial x-rays did not confirm osteomyelitis or bony destruction however. Regarding her chronic right lower leg trauma wound, she does not report significant pain or drainage at this site. 11/14/16. Seen by Dr. Razo. The patient reports some increasing pain in the right MTPJ as well as left ankle over the past few days and her recent wound culture grew only a Hailey species. She does not report increased drainage associated with the right plantar foot diabetic ulcer however has started using topical gentamicin on the right lateral lower leg trauma wound due to increased redness in the periwound area. She also states her blood sugars have been higher this past week and her insulin was adjusted by her head insulation board saw operator. 11/07/16. Seen by Dr. Razo. The patient states the cuong wound VAC became displaced on Sunday. She reports some mild pain in the foot beneath the chronic right plantar foot diabetic ulcer but does not report increased drainage from the site nor from the right lower leg nor right dorsal foot trauma wounds. She states her blood sugars continue to be well controlled. 11/02/16. Seen by Dr. Razo. The patient does not report increased drainage or pain associated with the right plantar foot diabetic ulcer nor right lower leg and dorsal foot wounds since her last visit. 10/31/16. Seen by Dr. Razo. The patient reports that her wound VAC tubing was cut on her bed and the dressing was ripped off on Sunday. She is a report significant drainage or pain associated with the chronic right plantar foot diabetic ulcer nor right lower leg and dorsal foot wounds. 10/26/16. Seen by Dr. Razo. The patient states her wound VAC last seal yesterday and she removed it. Is treating the chronic right plantar foot diabetic ulcer and she does not report significant drainage since her last visit. She still reports some pain associated with the right lower leg and right dorsal foot trauma wounds that started as excoriations from a supposedly blood bite last week. She's been applying topical gentamicin to the sites but has not kept the sites covered as recommended. 10/24/16. Seen by Dr. Razo. The patient reports some increased redness and swelling of the right lower leg she feels that is associated with her scratching a bug bite. She does not report fevers or pain at the site. She does not report significant drainage associated with the chronic right first MTPJ diabetic ulcer and is now on Augmentin due to the MSSA positive culture taken last week. 10/19/16. Seen by Dr. Razo. The patient called this morning reporting increased pain and swelling of the right foot over the past 24 hours. She is being treated for a chronic right plantar foot diabetic ulcer and her recent wound culture grew MSSA however she does not picker machine operator her prescription for topical gentamicin at the pharmacy as recommended 2 days ago. She does not report fevers but states her blood sugars are over 300 today. 10/17/16. Seen by Dr. Razo. Both the patient and staff report increased drainage associated with the chronic right plantar foot diabetic ulcer since her last visit. He also noted increased maceration in the periwound area and she's been wearing her wound VAC since last seen last Sunday. 10/13/16. Seen by Dr. Razo. The patient does not report increased drainage nor other issues regarding the chronic right plantar foot diabetic ulcers since her last visit. Her wound VAC remained intact and functional over the interim and there are no other acute issues to report. 10/10/16. Seen by Dr. Razo. The patient states the wound VAC lost its seal and was removed on Sunday evening. She states there was some maceration along the medial margin of the chronic right plantar foot diabetic ulcer but she does not report pain in the foot. She is offloading it at all times mostly due to her recent right knee injury for which she wears a brace. 10/06/16. Seen by Dr. Razo. The patient does not report significant drainage associated with the chronic left foot diabetic ulcer. Following her fall last week she saw her primary care provider and is now wearing a left knee brace and has been limited in her ability due to knee pain. 10/03/16. Seen by Dr. Razo. The patient reports falling this morning when she tripped over her vacuum casting cleaner and injured her knee however does not report any new or acute problems regarding her chronic left foot diabetic ulcer. She states she uses her knee scooter at home in a wheelchair when shopping however does admit to walking without an offloading device infrequently. She states she is willing to try the wound VAC again noting that this has been difficult to use on the plantar surface of her foot due to her walking. She also notes that her blood sugars intermittently are over 200. 09/29/16. Seen by Dr. Razo. The patient states her wound vac malfunctioned about 3 hours after leaving the clinic on Sunday and she subsequently took it off. She reports increased drainage from the chronic left foot diabetic ulcer the past 2 days along with some foot and ankle pain but does not report fevers or feeling unwell. She also notes she's not using the knee scooter at all times to offload the foot as recommended. 09/26/16. Seen by Dr. Razo. The patient states her wound VAC began to functioning correctly on Sunday morning and so she took it off. She does not report significant drainage or pain associated with the chronic left plantar foot diabetic ulcer since then. She notes her blood sugars continued to be quite labile since her head insulation board saw operator has decreased her Levemir and added NovoLog to her diabetes regimen. 09/14/16. Seen by Dr. Razo. The patient does not report pain nor significant drainage associated with the chronic left plantar foot diabetic ulcer since her last visit. She tolerated negative pressure wound therapy without difficulty and is offloading as recommended. Her blood sugar today is 241 although she states most of them have been well- controlled recently. 09/18/16. Seen by Jules Waller PA-C. The patient reports that her SNAP device came off her ulcer yesterday. She continues to have blood sugars above 150 and states that she is working closely with an head insulation board saw operator to get her blood sugars lower. 09/15/16. Seen by Dr. Razo. The patient does not report pain or increased drainage associated with the chronic left plantar foot diabetic ulcer since her last visit and she's tolerating negative pressure wound therapy is started two days ago without any problems. Her blood sugar today is 221 and has been elevated on a number of recent visits. 09/13/16. Seen by Jules Waller PA-C. The patient reports that her blood sugars continue to be above 150 on many mornings. She reports no increase in drainage from her left foot diabetic ulcer. 09/08/16. Seen by Dr. Razo. The patient does not report pain or significant drainage associated with the chronic left plantar foot diabetic ulcer since her last visit. She is offloading with the surgical shoe and states her blood sugars continue to be well- controlled. Also, the patient's culture taken at her last visit grew a Hailey species. 09/03/16. Seen by Jules Waller PA-C. The patient reports that she has seen an head insulation board saw operator to attain better control of her blood sugars as her last A1c was >8. Of note her recent X-ray confirms the resolution of her osteomyelitis of her left foot. 08/15/16. Seen by Jules Waller PA-C. The patient reports she has had some blood sugar readings this week above 150, but is trying to keep them below 150. She continues taking Augmentin for osteomyelitis and her ulcer of the left foot has had stable drainage. 08/09/16. Seen by Jules Waller PA-C. The patient reports very good blood sugar control over the past few weeks with most readings below 150. She has been trying to be compliant with offloading her left foot diabetic ulcer and notes no increase in drainage from the ulcer since her last evaluation. She had an X-ray today of the left foot to reassess her chronic osteomyelitis of this foot. 08/04/16. Seen by Dr. Razo. The patient does not report pain nor significant drainage associated with the chronic left plantar foot diabetic ulcer since her last visit. She continues on Augmentin for osteomyelitis of the left first metatarsal and does not report ever side effects. She is offloading with front offloading shoe and her blood sugars remained well controlled.She's also been medically cleared from her drying machine operator for hyperbaric oxygen therapy following her recent vitrectomy 2 months ago. 07/26/16. Seen by Dr. Razo. The patient does not report pain nor significant drainage associated with the chronic left plantar foot diabetic ulcer since her last visit. She continues on Augmentin for osteomyelitis of the left first metatarsal and does not report ever side effects. She is offloading with front offloading shoe and her blood sugars remained well controlled. 07/19/16. Seen by Dr. Razo. The patient does not report pain nor significant drainage associated with the chronic left plantar foot diabetic ulcer since her last visit. She continues on Augmentin for osteomyelitis of the left first metatarsal and does not report ever side effects. She is offloading with front offloading shoe and her blood sugars remained well controlled. 07/12/16. Seen by Dr. Razo. The patient does not report significant pain nor drainage associated with the chronic left plantar foot diabetic ulcer since her last visit and she continues on Augmentin for underlying osteomyelitis of the left first metatarsal. She is offloading with a front offloading shoe and states her blood sugars are well controlled below 150 consistently. 07/03/16. Seen by Jules Waller PA-C. The patient reports that she has been in better control of her blood sugar this week with readings below 150. Drainage from her diabetic ulcer of the left foot has remained stable. 06/27/16. Seen by Jules Waller PA-C. The patient reports that she did a great deal of walking since she was last evaluated as she was hosting 5 guests in her house and helping organize a 300 seat banGFRANQt. She has noted increased drainage from her left foot diabetic ulcer and continues on augmentin to treat her chronic osteomyelitis of the left foot. She also reports decreased hearing in her left ear this week without URI symptoms and would like me to look at her eardrum. 06/20/16. Seen by Jules Waller PA-C. The patient reports continued drainage from her left foot chronic diabetic ulcer with underlying osteomyelitis. Her repeat MRI has demonstrated, again, signs of osteomyelitis in the forefoot near her ulcer site. Her ulcer has rently deteriorated further with evidence of deep structure necrosis, such as tendon necrosis. 06/13/16. Seen by Jules Waller PA-C. The patient reports increased drainage from her left foot diabetic ulcer. She reports improved blood sugar control this week and does not recall the results of her last A1c, which was 5 months ago. 06/06/16. Seen by Jules Waller PA-C. The patient reports blood sugars above 150 this week and self reports noncompliance with her diabetic diet. She does not report increased drainage from her chronic left foot diabetic ulcer. 05/26/16. Seen by Dr. Razo. The patient does not report pain or drainage associated with the chronic left foot diabetic ulcer since her last visit. She does however report a new wound on the right plantar foot caused by a puncture from an unknown object. Dr. Bañuelos explored the area but did not find the source and has subsequently sutured the wound. She's now on Augmentin for empiric coverage and she's asked if I could take a look at the wound to be sure it's ok. 05/18/16. Seen by Dr. Razo. The patient does not report increased drainage associated with the chronic left first plantar MT head diabetic ulcer since her last visit. She continues on Keflex for a wound infection and also has been given a prescription for Augmentin following a dog bite within the past week. She has not yet started to take the Augmentin. 05/11/16. Seen by Dr. Razo. The patient does not report increased drainage associated with the chronic left 1st plantar MT head diabetic ulcer however she does report pain on bearing weight just lateral to this site where in the past there's been a questionable pathologic fracture reported on xray last year. Her wound culture from the last visit grew tian- sensitive Staph and group B strep and she's not currently on antibiotics. She admits to not using a walker or cane to help offload the ulcer site and states her blood sugars are typically below 200. 03/24/16. Seen by Dr. Razo. The patient does not report drainage associated with the left 1st toe diabetic ulcer over the past week. 03/14/16. Seen by Dr. Razo. The patient does not report drainage associated with the left 1st toe diabetic ulcer over the past week however she continues to report some pain over the distal left 1st MT at the site of her prior amputation. She does not report fevers however her blood sugars today are 240 and she admits that they're elevated as well at home. 02/29/16 Seen by Jules Waller PA-C. The patient reports decreased drainage from her left 1st toe diabetic ulcer as well as from her chronic right foot diabetic ulcer. 02/22/16 Seen by Jules Waller PA-C. The patient reports that she stopped using a foam space between her 1st and 2nd left toes and has noticed today a new ulcer between her toes on the left 1st toe. Her chronic right foot ulcer has had stable drainage. 02/15/16 Seen by Jules Waller PA-C. The patient reports stable drainage from her right 2nd MT diabetic ulcer since her last evaluation. Her MRI shows radiographic evidence consistent with osteomyelitis of the right foot. 02/08/16. Seen by Dr. Razo. The patient does not report pain or significant drainage associated with the chronic right 2nd MT diabetic ulcer over the past week. She does admit to being more active and walking more than recommended although she continues to wear her offloading show. 01/25/16. Seen by Dr. Razo. The patient does not report increased drainage associated with the right 2nd MT diabetic ulcer since her last visit. 01/14/16. Seen by Dr. Razo. The patient does not report increased drainage or pain associate with the right 2nd MT diabetic ulcer since her last visit. She's now on Bactrim for the recent coag negative Staph positive wound culture and does not report adverse side effects. She reports falling in her bathroom 2 days ago hitting the back of her head with resultant nausea for a few hours but no open wounds. She does not report symptoms preceding the fall and states she has what sound like falls associated with imbalance every 1-2 months. She's not discussed with incident with another provider yet and is currently asymptomatic. She also reports a new diabetic ulcer on the left 2nd toe but does not recall injuring the toe. 01/05/16. Seen by Dr. Razo. The patient does not report significant drainage associated with the right 2nd MT diabetic ulcer since her last visit and she continues to offload with a surgical offloading shoe. She states her blood sugars have been a bit elevated this past week and its 230 in clinic today. 12/24/15. Seen by Dr. Razo. The patient reports persistent drainage from the chronic right 2nd MT diabetic ulcer and states her blood sugars are mostly between 100 and 200. She's offloading at all times using the offloading shoe but is not using a walker to cane to assist. She also continues on Bactrim for the recent Raoutella positive wound culture and does not report adverse side effects. 12/14/15 Seen by Jules Waller PA-C. The patient reports no drainage since her last dressing change from her right second MT ulcer. 12/08/15. Seen by Dr. Razo. The patient feels the pain associated with the right second MT pathologic fracture is improving and she's returned to wearing an offloading shoe instead of her NIGHTMUTE boot due to balance problems. She does not report increased drainage associated with the right plantar first MT diabetic ulcer however admits to being more active than she should be and admits to not using a walker or cane to help offload. She also states her blood sugars are typically between 100 and 200. Of note, her blood sugar in clinic today is 54 and she states she did not have breakfast before coming to her appointment. She's also on Augmentin which was started due to her recent MRI reporting osteomyelitis at the right 2nd MT head. 12/01/15. Seen by Dr. Razo. The patient was seen by Dr. Bañuelos earlier this week for his recently diagnosed on MRI right 2nd MT non-displaced fracture. The original trauma occurred when she hit the foot on a bed post 5 weeks ago. The MRI also indicated osteomyelitis is present at the right 2nd MT head and the patient's now on Augmentin that was started by Dr. Bañuelos and has changed to an offloading boot. She does not report significant drainage associated with the right plantar surface 1st MTPJ diabetic ulcer and states her blood sugars are around 150 usually. She does report persistent moderate pain at the right 2nd MT head however. 11/24/15. Seen by Dr. Razo. The patient continues to report significant pain associated with the right 1st and 2nd MT heads noting this pain first occurred in the last week in September when she forcefully hit this area of the foot on a bed post. She has later today to evaluate for a possible fracture and has been wearing her offloading shoe as recommended to relieve pressure at the 1st MTPJ plantar diabetic foot ulcer. She states her blood sugars have been a bit elevate recently between 150 and 200 and she does not report fevers or feeling unwell in general. 11/16/15 Seen by Jules Waller PA-C. The patient reports that her right 1st metatarsal head ulcer, which has been constantly present since 06/2015 has had stable drainage and has not improved in the past week despite complying with offloading instructions. She has not had any associated pain. 11/09/15 Seen by Jules Waller PA-C. The patient reports feeling better this week and her 1st metatarsal head ulcer has had stable drainage since last week. Her blood sugars have been running above 150 this week. 11/03/15. Seen by Dr. Razo. The patient reports feeling generally unwell and weak while reporting only urinary frequency as a symptom. She states her blood sugars have been very labile over the past week but does not report increased drainage from the right foot diabetic ulcer site. She does continue to complain of pain at the site of the right 1st MT amputation following an event when she hit the foot on a piece of furniture about 10 days ago. 10/25/15. Seen by Dr. Razo. The patient reports accidentally soaking her right foot diabetic ulcer in a roberto this weekend despite wearing a cast protector. She does not report increased drainage at the ulcer site and rinsed and dressed the ulcer after the incident. She also hit the foot off of a bed and reports a moderate amount of pain at the site of the right 1st toe amputation. 10/18/15. Seen by Dr. Razo. The patient's been offloading the right foot diabetic ulcer as much as possible by wearing a surgical shoe and limiting her walking. She states her blood sugars have been as low 50 this past week as she's been trying to improve her diabetes management noting her recent A1c was over 9. 09/28/[address] Razo. The patient does not report significant drainage from the chronic right foot diabetic ulcer over the past week and states she's been limiting her walking considerably to help facilitate offloading in addition to wearing her surgical shoe. 09/22/[address] Razo. The patient does not report pain or drainage associated with the chronic right foot diabetic ulcer over the past week. She states her blood sugars have been over 150 however and she's been more active walking over the past week. 09/07/15 Seen by Jules Waller PA-C. The patient reports stable symptoms of pain and drainage fro her right foot diabetic ulcer. She also reports that she has a compound fracture of a toe on the left foot which Dr. Bañuelos wants to fix but the patient is worried that she will not be able to walk with an ulcer on one foot and a surgical wound on the other. 09/01/[address] Razo. The patient does not report pain or significant drainage associated with the chronic right plantar foot diabetic ulcer over the past week. She continues to wear the offloading shoe and states her blood sugars are mostly below 150. 08/23/15 Seen by Jules Waller PA-C. The patient reports that the pain in her ankle resolved on it's own in the past few days. She reports no increase in drainage from her ulcer. 08/16/15 Seen by Jules Waller PA-C. The patient reports pain in her right ankle area and associates this pain with ulcer infections of her first metatarsal head. She is requesting antibiotics today. She reports a significant decrease in ulcer drainage, stable ulcer pain and denies fever, chills or malaise. 08/09/15 Seen by Jules Waller PA-C. The patient reports no increase in pain or drainage from her diabetic right foot ulcer since her last evaluation. 08/02/[address] Razo. The patient's new to our clinic and has been referred by Dr. Bañuelos for a right plantar diabetic foot ulcer. She states that about one month ago she stepped on a carpet nail at home and since then the wound has not healed and in fact deteriorated over the past week noting increased purulent drainage, a foul odor , and swelling and redness of the right foot. She was seen by Dr. Bañuelos at the end of last week who debrided the ulcer, took a culture, and started the patient on Augmentin. She states the drainage has decreased and the foot swelling and redness has resolved. She historically as not had very good control of her blood sugars and notes her last A1c was 'around 9' . She does not report a known history of PAD and does not report claudication or rest pain nor does she report fevers, side effects from the Augmentin, or feeling unwell in general over the past few days. Past Medical History This information was obtained from the patient Patient has a medical history of: Diabetes, type 2 (since age 42) Hypertension Hypothyroidism Peripheral Neuropathy Factor V Leiden deficiency Sleep Apnea Psoriasis CKD, stage III (early) Depression Retina Surgery Chronic osteomyelitis (right foot metatarsals) Diabetic foot ulcer (Yusuf grade 3; right 1st MTPJ; complicated by chronic osteomyelitis and cellulitis; s/p TMA 11/2016) Complaints and Symptoms This information was obtained from the patient Patient complains of: General Notes: I have reviewed and concur with the Review of Systems and Past Family Social History documents completed by the clinician, I have reviewed and concur with the Wound Assessment document completed by the clinician Hematologic/Lymphatic: Bleeding / Clotting Disorders Integumentary (Hair/Skin/Nails): Open Sore Musculoskeletal: Assistive Devices, Deformities Neurological: Abnormal Gait, Loss of Protective Sensation Prior Wound History: Drainage, Erythema, Malodor, Pain Respiratory: Oxygen Use Patient denies complaints or symptoms related to: Cardiovascular (Central): Irregular heart beat Cardiovascular (Central/Peripheral): Intermittent Claudication, Lower extremity (leg) resting pain, Lower extremity (leg) swelling Constitutional Symptoms (General Health): Chills, Fever Ear/Nose/Mouth/Throat: Hearing Loss / Aid Gastrointestinal (GI): Nausea / Vomiting, Stomach/abdominal pain Hematologic/Lymphatic: Bruising, Bleeding Tendency Musculoskeletal: Joint Swelling Prior Wound History: Bleeding Psychiatric: Memory Loss Respiratory: Shortness of Breath OBJECTIVE Constitutional BP elevated; Afebrile; Alert and in no distress. Well developed. Alert. Clean appearing.. Height/Length: 62 in (157.48 cm), Weight: 139.9 lbs (63.59 kgs), BMI: 25.6, Temperature: 98 ?F (36.67 ?C), Pulse: 62 bpm, Respiratory Rate: 17 breaths/min, Blood Pressure: 152/71 mmHg, Capillary Blood Glucose: 269 mg/dl, Pulse Oximetry: 95 %. Respiratory: No respiratory distress. Even respirations and without use of accessory muscles.. Cardiovascular: 1+ bilateral lower leg edema. Integumentary (Hair, Skin) No periwound erythema, warmth, or significant drainage. No periwound rashes appreciated or noted otherwise.. Refer to appropriate clinician wound documentation for this visit; right and left lower leg wounds extend to subcut with bases partially covered with pink granulation, remainder fibrin and slough. Wound #10 Left Ankle is an acute Partial Thickness Trauma Wound and has received a status of Not Healed. Subsequent wound encounter measurements are 1.1cm length x 0.4cm width x 0.1cm depth, with an area of 0.44 sq cm and a volume of 0.044 cubic cm. No tunneling has been noted. No sinus tract has been noted. No undermining has been noted. There was no drainage noted. The patient reports a wound pain of level 1/10. The wound margin is attached. Wound bed has Yes epithelialization, No eschar, Yes slough, No granulation. The periwound skin texture is normal. The periwound skin moisture is normal. The periwound skin color is normal. The temperature of the periwound skin is WNL. Periwound skin presents with s/s of infection. Confirmation Description and Treatment Plan is: Systemic Antibiotics Prescribed. Local Pulse is Normal. Wound #11 Left, Lateral Leg - lower is an acute Partial Thickness Trauma Wound and has received a status of Not Healed. Subsequent wound encounter measurements are 0.4cm length x 0.4cm width x 0.1cm depth, with an area of 0.16 sq cm and a volume of 0.016 cubic cm. No tunneling has been noted. No sinus tract has been noted. No undermining has been noted. There was no drainage noted. The patient reports a wound pain of level 0/ 10. The wound margin is attached. Wound bed has No epithelialization, No eschar, Yes slough, No granulation. The periwound skin texture is normal. The periwound skin moisture is normal. The periwound skin color is normal. The temperature of the periwound skin is WNL. Periwound skin presents with s/s of infection. Confirmation Description and Treatment Plan is: Systemic Antibiotics Prescribed. Local Pulse is Normal. Wound #12 Right, Lateral Leg - lower is an acute Partial Thickness Trauma Wound and has received a status of Not Healed. Subsequent wound encounter measurements are 0.7cm length x 0.5cm width x 0.1cm depth, with an area of 0.35 sq cm and a volume of 0.035 cubic cm. No tunneling has been noted. No sinus tract has been noted. No undermining has been noted. There is a moderate amount of serosanguineous drainage noted which has no odor. The patient reports a wound pain of level 0/10. The wound margin is attached. Wound bed has Yes epithelialization, No eschar, Yes slough, Yes bright red, pink, firm granulation. The periwound skin texture is normal. The periwound skin color is normal. The periwound skin exhibited: Maceration. The periwound skin did not exhibit: Dry/Scaly, Moist. The temperature of the periwound skin is WNL. Periwound skin presents with s/s of infection. Confirmation Description and Treatment Plan is: Systemic Antibiotics Prescribed. Local Pulse is Normal. Wound #13 Right Leg - lower is an acute Full Thickness Trauma Wound and has received a status of Not Healed. Subsequent wound encounter measurements are 0.1cm length x 0.1cm width x 0.1cm depth, with an area of 0.01 sq cm and a volume of 0.001 cubic cm. No tunneling has been noted. No sinus tract has been noted. No undermining has been noted. There was no drainage noted. The patient reports a wound pain of level 0/10. The wound margin is attached. Wound bed has No epithelialization, No eschar, Yes slough, No granulation. The periwound skin texture is normal. The periwound skin moisture is normal. The periwound skin color is normal. The temperature of the periwound skin is WNL. Periwound skin presents with s/s of infection. Confirmation Description and Treatment Plan is: Systemic Antibiotics Prescribed. Local Pulse is Normal. Neurological: Cranial nerves grossly intact with symmetric function normal by informal observation.. ASSESSMENT Active Problems ICD-10 (Encounter Diagnosis) S81.802D - Unspecified open wound, left lower leg, subsequent encounter (Encounter Diagnosis) S81.801D - Unspecified open wound, right lower leg, subsequent encounter (Encounter Diagnosis) L03.116 - Cellulitis of left lower limb (Encounter Diagnosis) L03.115 - Cellulitis of right lower limb PROCEDURES Wound #10 Wound #10 (Trauma Wound) is located on the left ankle. A skin/subcutaneous tissue level surgical debridement with a total area debrided of 0.44 sq cm was performed by Mook Razo MD. Subcutaneous was removed along with devitalized tissue: exudate and slough. The following instrument(s) were used: curette. Pain control was achieved using 4% Lido. A time out was conducted prior to the start of the procedure. A minimal amount of bleeding was controlled with n/a. The procedure was tolerated well with a pain level of 0 throughout and a pain level of 0 following the procedure. Post Debridement Measurements: 1.1cm length x 0.4cm width x 0.2cm depth; with an area of 0.44 sq cm and a volume of 0.088 cubic cm; Wound #11 Wound #11 (Trauma Wound) is located on the left, lateral leg - lower. A skin/ subcutaneous tissue level surgical debridement with a total area debrided of 0.16 sq cm was performed by Mook Razo MD. Subcutaneous was removed along with devitalized tissue: exudate and slough. The following instrument(s) were used: curette. Pain control was achieved using 4% Lido. A time out was conducted prior to the start of the procedure. A minimal amount of bleeding was controlled with n/a. The procedure was tolerated well with a pain level of 0 throughout and a pain level of 0 following the procedure. Post Debridement Measurements: 0.4cm length x 0.4cm width x 0.2cm depth; with an area of 0.16 sq cm and a volume of 0.032 cubic cm; Wound #12 Wound #12 (Trauma Wound) is located on the right, lateral leg - lower. A skin/ subcutaneous tissue level surgical debridement with a total area debrided of 0.35 sq cm was performed by Mook Razo MD. Subcutaneous was removed along with devitalized tissue: exudate and slough. The following instrument(s) were used: curette. Pain control was achieved using 4% Lido. A time out was conducted prior to the start of the procedure. A minimal amount of bleeding was controlled with n/a. The procedure was tolerated well with a pain level of 0 throughout and a pain level of 0 following the procedure. Post Debridement Measurements: 0.7cm length x 0.5cm width x 0.2cm depth; with an area of 0.35 sq cm and a volume of 0.07 cubic cm; Wound #13 Wound #13 (Trauma Wound) is located on the right leg - lower. A skin/ subcutaneous tissue level surgical debridement with a total area debrided of 0.06 sq cm was performed by Mook Razo MD. Subcutaneous was removed along with devitalized tissue: exudate and slough. The following instrument(s) were used: curette. Pain control was achieved using 4% Lido. A time out was conducted prior to the start of the procedure. A minimal amount of bleeding was controlled with n/a. The procedure was tolerated well with a pain level of 0 throughout and a pain level of 0 following the procedure. Post Debridement Measurements: 0.3cm length x 0.2cm width x 0.2cm depth; with an area of 0.06 sq cm and a volume of 0.012 cubic cm; Additional Information Muscle fascia or bone removed and sent to pathology?: No Muscle fascia or bone removed and sent to pathology?: No Muscle fascia or bone removed and sent to pathology?: No Muscle fascia or bone removed and sent to pathology?: No PLAN Wound Orders: Wound #10 Left Ankle Anesthetic Topical Xylocaine to wound bed. - In clinic only. Cleanser Cleanse Wound: - Normal saline and gauze. May Shower. - Use a cast protector Dressings Pack wound: - Hydrogel to wound bed. Primary dressing: - Border foam . Change Dressing: - Every other day. Wound #11 Left, Lateral Leg - lower Anesthetic Topical Xylocaine to wound bed. - In clinic only. Cleanser Cleanse Wound: - Normal saline and gauze. May Shower. - Use a cast protector Dressings Pack wound: - Hydrogel to wound bed. Primary dressing: - Border foam . Change Dressing: - Every other day. Wound #12 Right, Lateral Leg - lower Anesthetic Topical Xylocaine to wound bed. - In clinic only. Cleanser Cleanse Wound: - Normal saline and gauze. May Shower. - Use a cast protector Dressings Pack wound: - Hydrogel to wound bed. Primary dressing: - Border foam . Change Dressing: - Every other day. Wound #13 Right Leg - lower Anesthetic Topical Xylocaine to wound bed. - In clinic only. Cleanser Cleanse Wound: - Normal saline and gauze. May Shower. - Use a cast protector Dressings Pack wound: - Hydrogel to wound bed. Primary dressing: - Border foam . Change Dressing: - Every other day. Additional Orders: Follow-Up Appointments Return Appointment: - - One week. Other information: If you develop fever, chills, increased pain, drainage, redness or swelling please call our office. If after hours, respond to the ER. Should you experience any significant changes in your wound(s) or have any questions regarding your home care instructions please contact the wound center @ [phone]. If after hours, contact your primary care physician or go to the hospital emergency room. Scribing Attestation I attest, as the nurse, that I scribed these orders for the physician. I've reviewed the clinician's documentation and agree with the evaluation and plan as written. In addition the patient's wounds demonstrate evidence of non-viable devitalized tissue and they will continue to benefit from sharp debridement to help promote granulation and expedite healing. Also, the patient will complete her doxycycline as prescribed and we'll defer additional antibiotics thereafter. Electronic Signature(s) Signed By: Date: Mook Razo MD 10/25/2017 09:38:18 Entered By: Mook Razo on 10/24/2017 09:56:47
== END ==
PROVIDERS: PCP Family Medicine; Visit Provider Internal Medicine
DX: S91.002A Unspecified open wound, left ankle, initial encounter (principal); S81.802A Unspecified open wound, left lower leg, initial encounter; S81.801A Unspecified open wound, right lower leg, initial encounter; L03.116 Cellulitis of left lower limb; L03.115 Cellulitis of right lower limb
CPT/HCPCS: 11042

== ENCOUNTER → 2017-10-31 10:08 | Outpatient (CLI) | payer MEDICARE, OTHER, SELFPAY ==
--- NOTE | 2017-10-31 | OV.WND_ITS ---
Progress Note Details Patient Name: Kemi Alberto Patient Number: [id number] PatientPatientDate: 10/31/2017 Clinician: Komal Polanco Clinician Cosigner: Jemima Bergman Physician / Business Quality Assurance Analyst: Mook Razo SUBJECTIVE Chief Complaint This information was obtained from the patient Cellulitis bilateral lower extremities. Allergies codeine (Reaction: nausea) HPI This information was obtained from the patient 10/31/17. Seen by Dr. Razo. The patient does not report significant pain or increased drainage associated with the chronic bilateral lower leg trauma wounds since her last visit and she's completed her course of doxycycline that was treating bilateral lower leg cellulitis. 10/24/17. Seen by Dr. Razo. The patient does not report significant pain or increased drainage associated with the chronic bilateral lower leg trauma wounds since her last visit and she feels the leg swelling and redness have improved since starting on doxycycline for cellulitis associated with the wounds. 10/19/17. Seen by Dr. Razo. The patient returns our clinic with chronic bilateral lower leg trauma wounds that have occurred as a result of excoriation's associated with a rash and pruritus of the legs. She's now on doxycycline and feels the redness is improving. She does not report significant drainage however has a history of this in the past as well as a recent right partial foot amputation. She has a history of poor compliance regarding her diabetes and her blood sugar today is 329. 04/25/17. Seen by Dr. Razo. The patient does not report significant pain or increased drainage associated with the chronic right foot is transmetatarsal amputation site since her last visit. 04/18/17. Seen by Dr. Razo. The patient does not report significant pain or increased drainage associated with the chronic right foot diabetic ulcer that started last November following wound dehiscence of a TMA amputation site. She's offloading with a knee scooter and is now off of antibiotic. 04/09/17 See by Jules Waller PA-C. The patient reports that she has been up on her feet more than before. She does not report increased drainage. Blood sugars continue to be above 150, and she continues on Prednisone through the end of the month per Pulmonology. 04/04/17. Seen by Dr. Razo. The patient does not report significant pain or increased drainage associated with the chronic right foot is transmetatarsal amputation site since her last visit. She is now off of IV antibiotics based on a recent eosinophilic pneumonia thought to be caused by IV daptomycin. She is also not currently undergoing hyperbaric oxygen therapy as her primary care provider has advised to hold this following a recent pneumonia. 03/27/17. Seen by Jules Waller PA-C. The patient reports that she was recently discharged from [facility] in [place] after a severe pulmonary reaction to Daptomycin. She is currently on supplemental oxygen and reports that her strength is returning. While in hospital her CUONG dressing was not changed. She is on an oral antibiotic prescribed at discharge, but does not recall the name of it. In addition, her blood sugars have been running >150 since discharge. 03/19/17. Seen by Dr. Razo. The patient does not report pain nor increased drainage associated with chronic right foot transmetatarsal amputation site and she continues on IV daptomycin for chronic osteomyelitis of the foot without reported adverse side effects, fevers, feeling unwell. She is also tolerating hyperbaric oxygen therapy and her previously reported left and right ear pain have resolved. 03/12/17. Seen by Dr. Razo. The patient reports improvement in terms of pain associated with the right foot transmetatarsal amputation and continues on IV daptomycin for associated chronic osteomyelitis without reporting adverse side effects, fevers, or feeling unwell in general. 03/05/17. Seen by Dr. Razo. The patient reports improvement in terms of pain associated with the right foot transmetatarsal amputation and continues on IV daptomycin for associated chronic osteomyelitis. She reports elevated blood sugars in the 200s noting her high dose of short acting insulin frequently results in blood sugars in the 50's despite mostly adhering to a consistent diabetic diet. She's offloading the foot as recommended using an offloading shoe and knee scooter. She's also been authorized for HBOT and is tolerating negative pressure wound therapy which is treating the dehisced surgical wound without difficulty. 03/01/17. Seen by Dr. Razo. The patient reports a significant improvement in pain associated with the right foot transmetatarsal amputation site. She does not report significant drainage and continues on IV daptomycin for underlying chronic osteomyelitis and does not report adverse side effects, fevers, or feeling unwell in general. Her blood sugars are also between 150 and 200 mostly. 02/21/17. Seen by Dr. Razo. The patient reports a significant improvement in pain associated with the right foot transmetatarsal amputation site. This was performed November due to deterioration of the Yusuf grade 3 chronic diabetic ulcer and associated abscess. She is now being treated with IV daptomycin for osteomyelitis that occurred postoperatively and has been approved for hyperbaric oxygen therapy noting the surgical wound has dehisced and she's recently been admitted for cellulitis of the right lower leg. 02/15/17. Seen by Dr. Razo. The patient returns to our clinic following admission to the hospital last week for cellulitis of the right lower leg associated with wound dehiscence of the right foot transmetatarsal amputation which was performed in November. Her recent culture grew staph and enterococcus faecalis and she is now on IV daptomycin. She reports some moderate pain at the forefoot and her MRI suggested osteomyelitis at the first metatarsal stump. She'd been treated over the previous year for a Yusuf grade 3 diabetic ulcer at the right first MTPJ and prior to the amputation this ulcer deteriorated significantly at which time she was transferred back to her software engineering specialist, Dr. Bañuelos, who referred her on to Dr. Purvis who performed the TMA. Her diabetes has historically been poorly controlled however her recent A1c has decreased to 7.7. She also had a history of noncompliance in terms of weightbearing. 12/05/16. Seen by Jules Waller PA-C. The patient reports continued difficulty keeping her blood sugars under control. She has had sugars recently as high as 450 and as low as 50. She is working with endocrinology on this issue and is feeling fatigued by the lack of perceived progress so far. Yyao ulcers have not had increased drainage. 11/28/16. Seen by Dr. Razo. The patient reports some persistent intermittent pain associated with the chronic right plantar foot diabetic ulcer. She continues on antibiotics for underlying chronic osteomyelitis of the first MTPJ. She has an MRI scheduled on to reevaluate the osteomyelitis and is awaiting an appointment with Dr. Bañuelos, podiatry, for further evaluation. She admits to not using her offloading shoe at all times and has been wearing her slipper around the house. She has also not been able start hyperbaric oxygen therapy as she states she cannot afford the chest x-ray which is required prior to starting treatment. 11/21/16. Seen by Dr. Razo. The patient reports persistent pain associated with the right foot and ankle and she was started on doxycycline following her visit last week to treat chronic osteomyelitis of the right first MTPJ. She does not report adverse side effects nor fevers or feeling unwell. She's also wearing her offloading shoe as recommended and minimizing walking as much as possible. Her bloods sugars have been relatively well controlled recently with most below 150.Of note, her arterial Doppler from July 2015 was relatively unremarkable with biphasic flow in the right lower leg and triphasic in the left. Also an MRI from May of this year showed a small abscess adjacent to the first MTPJ along with possible osteomyelitis at that site. Subsequent serial x-rays did not confirm osteomyelitis or bony destruction however. Regarding her chronic right lower leg trauma wound, she does not report significant pain or drainage at this site. 11/14/16. Seen by Dr. Razo. The patient reports some increasing pain in the right MTPJ as well as left ankle over the past few days and her recent wound culture grew only a Hailey species. She does not report increased drainage associated with the right plantar foot diabetic ulcer however has started using topical gentamicin on the right lateral lower leg trauma wound due to increased redness in the periwound area. She also states her blood sugars have been higher this past week and her insulin was adjusted by her neurological surgery teacher. 11/07/16. Seen by Dr. Razo. The patient states the cuong wound VAC became displaced on Sunday. She reports some mild pain in the foot beneath the chronic right plantar foot diabetic ulcer but does not report increased drainage from the site nor from the right lower leg nor right dorsal foot trauma wounds. She states her blood sugars continue to be well controlled. 11/02/16. Seen by Dr. Razo. The patient does not report increased drainage or pain associated with the right plantar foot diabetic ulcer nor right lower leg and dorsal foot wounds since her last visit. 10/31/16. Seen by Dr. Razo. The patient reports that her wound VAC tubing was cut on her bed and the dressing was ripped off on Sunday. She is a report significant drainage or pain associated with the chronic right plantar foot diabetic ulcer nor right lower leg and dorsal foot wounds. 10/26/16. Seen by Dr. Razo. The patient states her wound VAC last seal yesterday and she removed it. Is treating the chronic right plantar foot diabetic ulcer and she does not report significant drainage since her last visit. She still reports some pain associated with the right lower leg and right dorsal foot trauma wounds that started as excoriations from a supposedly blood bite last week. She's been applying topical gentamicin to the sites but has not kept the sites covered as recommended. 10/24/16. Seen by Dr. Razo. The patient reports some increased redness and swelling of the right lower leg she feels that is associated with her scratching a bug bite. She does not report fevers or pain at the site. She does not report significant drainage associated with the chronic right first MTPJ diabetic ulcer and is now on Augmentin due to the MSSA positive culture taken last week. 10/19/16. Seen by Dr. Razo. The patient called this morning reporting increased pain and swelling of the right foot over the past 24 hours. She is being treated for a chronic right plantar foot diabetic ulcer and her recent wound culture grew MSSA however she does not excelsior picker her prescription for topical gentamicin at the pharmacy as recommended 2 days ago. She does not report fevers but states her blood sugars are over 300 today. 10/17/16. Seen by Dr. Razo. Both the patient and staff report increased drainage associated with the chronic right plantar foot diabetic ulcer since her last visit. He also noted increased maceration in the periwound area and she's been wearing her wound VAC since last seen last Sunday. 10/13/16. Seen by Dr. Razo. The patient does not report increased drainage nor other issues regarding the chronic right plantar foot diabetic ulcers since her last visit. Her wound VAC remained intact and functional over the interim and there are no other acute issues to report. 10/10/16. Seen by Dr. Razo. The patient states the wound VAC lost its seal and was removed on Sunday evening. She states there was some maceration along the medial margin of the chronic right plantar foot diabetic ulcer but she does not report pain in the foot. She is offloading it at all times mostly due to her recent right knee injury for which she wears a brace. 10/06/16. Seen by Dr. Razo. The patient does not report significant drainage associated with the chronic left foot diabetic ulcer. Following her fall last week she saw her primary care provider and is now wearing a left knee brace and has been limited in her ability due to knee pain. 10/03/16. Seen by Dr. Razo. The patient reports falling this morning when she tripped over her vacuum kiln cleaner and injured her knee however does not report any new or acute problems regarding her chronic left foot diabetic ulcer. She states she uses her knee scooter at home in a wheelchair when shopping however does admit to walking without an offloading device infrequently. She states she is willing to try the wound VAC again noting that this has been difficult to use on the plantar surface of her foot due to her walking. She also notes that her blood sugars intermittently are over 200. 09/29/16. Seen by Dr. Razo. The patient states her wound vac malfunctioned about 3 hours after leaving the clinic on Sunday and she subsequently took it off. She reports increased drainage from the chronic left foot diabetic ulcer the past 2 days along with some foot and ankle pain but does not report fevers or feeling unwell. She also notes she's not using the knee scooter at all times to offload the foot as recommended. 09/26/16. Seen by Dr. Razo. The patient states her wound VAC began to functioning correctly on Sunday morning and so she took it off. She does not report significant drainage or pain associated with the chronic left plantar foot diabetic ulcer since then. She notes her blood sugars continued to be quite labile since her neurological surgery teacher has decreased her Levemir and added NovoLog to her diabetes regimen. 09/14/16. Seen by Dr. Razo. The patient does not report pain nor significant drainage associated with the chronic left plantar foot diabetic ulcer since her last visit. She tolerated negative pressure wound therapy without difficulty and is offloading as recommended. Her blood sugar today is 241 although she states most of them have been well- controlled recently. 09/18/16. Seen by Jules Waller PA-C. The patient reports that her SNAP device came off her ulcer yesterday. She continues to have blood sugars above 150 and states that she is working closely with an neurological surgery teacher to get her blood sugars lower. 09/15/16. Seen by Dr. Razo. The patient does not report pain or increased drainage associated with the chronic left plantar foot diabetic ulcer since her last visit and she's tolerating negative pressure wound therapy is started two days ago without any problems. Her blood sugar today is 221 and has been elevated on a number of recent visits. 09/13/16. Seen by Jules Waller PA-C. The patient reports that her blood sugars continue to be above 150 on many mornings. She reports no increase in drainage from her left foot diabetic ulcer. 09/08/16. Seen by Dr. Razo. The patient does not report pain or significant drainage associated with the chronic left plantar foot diabetic ulcer since her last visit. She is offloading with the surgical shoe and states her blood sugars continue to be well- controlled. Also, the patient's culture taken at her last visit grew a Hailey species. 09/03/16. Seen by Jules Waller PA-C. The patient reports that she has seen an neurological surgery teacher to attain better control of her blood sugars as her last A1c was >8. Of note her recent X-ray confirms the resolution of her osteomyelitis of her left foot. 08/15/16. Seen by Jules Waller PA-C. The patient reports she has had some blood sugar readings this week above 150, but is trying to keep them below 150. She continues taking Augmentin for osteomyelitis and her ulcer of the left foot has had stable drainage. 08/09/16. Seen by Jules Waller PA-C. The patient reports very good blood sugar control over the past few weeks with most readings below 150. She has been trying to be compliant with offloading her left foot diabetic ulcer and notes no increase in drainage from the ulcer since her last evaluation. She had an X-ray today of the left foot to reassess her chronic osteomyelitis of this foot. 08/04/16. Seen by Dr. Razo. The patient does not report pain nor significant drainage associated with the chronic left plantar foot diabetic ulcer since her last visit. She continues on Augmentin for osteomyelitis of the left first metatarsal and does not report ever side effects. She is offloading with front offloading shoe and her blood sugars remained well controlled.She's also been medically cleared from her dietary aide for hyperbaric oxygen therapy following her recent vitrectomy 2 months ago. 07/26/16. Seen by Dr. Razo. The patient does not report pain nor significant drainage associated with the chronic left plantar foot diabetic ulcer since her last visit. She continues on Augmentin for osteomyelitis of the left first metatarsal and does not report ever side effects. She is offloading with front offloading shoe and her blood sugars remained well controlled. 07/19/16. Seen by Dr. Razo. The patient does not report pain nor significant drainage associated with the chronic left plantar foot diabetic ulcer since her last visit. She continues on Augmentin for osteomyelitis of the left first metatarsal and does not report ever side effects. She is offloading with front offloading shoe and her blood sugars remained well controlled. 07/12/16. Seen by Dr. Razo. The patient does not report significant pain nor drainage associated with the chronic left plantar foot diabetic ulcer since her last visit and she continues on Augmentin for underlying osteomyelitis of the left first metatarsal. She is offloading with a front offloading shoe and states her blood sugars are well controlled below 150 consistently. 07/03/16. Seen by Jules Waller PA-C. The patient reports that she has been in better control of her blood sugar this week with readings below 150. Drainage from her diabetic ulcer of the left foot has remained stable. 06/27/16. Seen by Jules Waller PA-C. The patient reports that she did a great deal of walking since she was last evaluated as she was hosting 5 guests in her house and helping organize a 300 seat banquet. She has noted increased drainage from her left foot diabetic ulcer and continues on augmentin to treat her chronic osteomyelitis of the left foot. She also reports decreased hearing in her left ear this week without URI symptoms and would like me to look at her eardrum. 06/20/16. Seen by Jules Waller PA-C. The patient reports continued drainage from her left foot chronic diabetic ulcer with underlying osteomyelitis. Her repeat MRI has demonstrated, again, signs of osteomyelitis in the forefoot near her ulcer site. Her ulcer has rently deteriorated further with evidence of deep structure necrosis, such as tendon necrosis. 06/13/16. Seen by Jules Waller PA-C. The patient reports increased drainage from her left foot diabetic ulcer. She reports improved blood sugar control this week and does not recall the results of her last A1c, which was 5 months ago. 06/06/16. Seen by Jules Waller PA-C. The patient reports blood sugars above 150 this week and self reports noncompliance with her diabetic diet. She does not report increased drainage from her chronic left foot diabetic ulcer. 05/26/16. Seen by Dr. Razo. The patient does not report pain or drainage associated with the chronic left foot diabetic ulcer since her last visit. She does however report a new wound on the right plantar foot caused by a puncture from an unknown object. Dr. Bañuelos explored the area but did not find the source and has subsequently sutured the wound. She's now on Augmentin for empiric coverage and she's asked if I could take a look at the wound to be sure it's ok. 05/18/16. Seen by Dr. Razo. The patient does not report increased drainage associated with the chronic left first plantar MT head diabetic ulcer since her last visit. She continues on Keflex for a wound infection and also has been given a prescription for Augmentin following a dog bite within the past week. She has not yet started to take the Augmentin. 05/11/16. Seen by Dr. Razo. The patient does not report increased drainage associated with the chronic left 1st plantar MT head diabetic ulcer however she does report pain on bearing weight just lateral to this site where in the past there's been a questionable pathologic fracture reported on xray last year. Her wound culture from the last visit grew tian- sensitive Staph and group B strep and she's not currently on antibiotics. She admits to not using a walker or cane to help offload the ulcer site and states her blood sugars are typically below 200. 03/24/16. Seen by Dr. Razo. The patient does not report drainage associated with the left 1st toe diabetic ulcer over the past week. 03/14/16. Seen by Dr. Razo. The patient does not report drainage associated with the left 1st toe diabetic ulcer over the past week however she continues to report some pain over the distal left 1st MT at the site of her prior amputation. She does not report fevers however her blood sugars today are 240 and she admits that they're elevated as well at home. 02/29/16 Seen by Jules Waller PA-C. The patient reports decreased drainage from her left 1st toe diabetic ulcer as well as from her chronic right foot diabetic ulcer. 02/22/16 Seen by Jules Waller PA-C. The patient reports that she stopped using a foam space between her 1st and 2nd left toes and has noticed today a new ulcer between her toes on the left 1st toe. Her chronic right foot ulcer has had stable drainage. 02/15/16 Seen by Jules Waller PA-C. The patient reports stable drainage from her right 2nd MT diabetic ulcer since her last evaluation. Her MRI shows radiographic evidence consistent with osteomyelitis of the right foot. 02/08/16. Seen by Dr. Razo. The patient does not report pain or significant drainage associated with the chronic right 2nd MT diabetic ulcer over the past week. She does admit to being more active and walking more than recommended although she continues to wear her offloading show. 01/25/16. Seen by Dr. Razo. The patient does not report increased drainage associated with the right 2nd MT diabetic ulcer since her last visit. 01/14/16. Seen by Dr. Razo. The patient does not report increased drainage or pain associate with the right 2nd MT diabetic ulcer since her last visit. She's now on Bactrim for the recent coag negative Staph positive wound culture and does not report adverse side effects. She reports falling in her bathroom 2 days ago hitting the back of her head with resultant nausea for a few hours but no open wounds. She does not report symptoms preceding the fall and states she has what sound like falls associated with imbalance every 1-2 months. She's not discussed with incident with another provider yet and is currently asymptomatic. She also reports a new diabetic ulcer on the left 2nd toe but does not recall injuring the toe. 01/05/16. Seen by Dr. Razo. The patient does not report significant drainage associated with the right 2nd MT diabetic ulcer since her last visit and she continues to offload with a surgical offloading shoe. She states her blood sugars have been a bit elevated this past week and its 230 in clinic today. 12/24/15. Seen by Dr. Razo. The patient reports persistent drainage from the chronic right 2nd MT diabetic ulcer and states her blood sugars are mostly between 100 and 200. She's offloading at all times using the offloading shoe but is not using a walker to cane to assist. She also continues on Bactrim for the recent Raoutella positive wound culture and does not report adverse side effects. 12/14/15 Seen by Jules Waller PA-C. The patient reports no drainage since her last dressing change from her right second MT ulcer. 12/08/15. Seen by Dr. Razo. The patient feels the pain associated with the right second MT pathologic fracture is improving and she's returned to wearing an offloading shoe instead of her [place] [facility] CAHUILLA boot due to balance problems. She does not report increased drainage associated with the right plantar first MT diabetic ulcer however admits to being more active than she should be and admits to not using a walker or cane to help offload. She also states her blood sugars are typically between 100 and 200. Of note, her blood sugar in clinic today is 54 and she states she did not have breakfast before coming to her appointment. She's also on Augmentin which was started due to her recent MRI reporting osteomyelitis at the right 2nd MT head. 12/01/15. Seen by Dr. Razo. The patient was seen by Dr. Bañuelos earlier this week for his recently diagnosed on MRI right 2nd MT non-displaced fracture. The original trauma occurred when she hit the foot on a bed post 5 weeks ago. The MRI also indicated osteomyelitis is present at the right 2nd MT head and the patient's now on Augmentin that was started by Dr. Bañuelos and has changed to an offloading boot. She does not report significant drainage associated with the right plantar surface 1st MTPJ diabetic ulcer and states her blood sugars are around 150 usually. She does report persistent moderate pain at the right 2nd MT head however. 11/24/15. Seen by Dr. Razo. The patient continues to report significant pain associated with the right 1st and 2nd MT heads noting this pain first occurred in the last week in September when she forcefully hit this area of the foot on a bed post. She has later today to evaluate for a possible fracture and has been wearing her offloading shoe as recommended to relieve pressure at the 1st MTPJ plantar diabetic foot ulcer. She states her blood sugars have been a bit elevate recently between 150 and 200 and she does not report fevers or feeling unwell in general. 11/16/15 Seen by Jules Waller PA-C. The patient reports that her right 1st metatarsal head ulcer, which has been constantly present since 06/2015 has had stable drainage and has not improved in the past week despite complying with offloading instructions. She has not had any associated pain. 11/09/15 Seen by Jules Waller PA-C. The patient reports feeling better this week and her 1st metatarsal head ulcer has had stable drainage since last week. Her blood sugars have been running above 150 this week. 11/03/15. Seen by Dr. Razo. The patient reports feeling generally unwell and weak while reporting only urinary frequency as a symptom. She states her blood sugars have been very labile over the past week but does not report increased drainage from the right foot diabetic ulcer site. She does continue to complain of pain at the site of the right 1st MT amputation following an event when she hit the foot on a piece of furniture about 10 days ago. 10/25/15. Seen by Dr. Razo. The patient reports accidentally soaking her right foot diabetic ulcer in a roberto this weekend despite wearing a cast protector. She does not report increased drainage at the ulcer site and rinsed and dressed the ulcer after the incident. She also hit the foot off of a bed and reports a moderate amount of pain at the site of the right 1st toe amputation. 10/18/15. Seen by Dr. Razo. The patient's been offloading the right foot diabetic ulcer as much as possible by wearing a surgical shoe and limiting her walking. She states her blood sugars have been as low 50 this past week as she's been trying to improve her diabetes management noting her recent A1c was over 9. 09/28/[address] Razo. The patient does not report significant drainage from the chronic right foot diabetic ulcer over the past week and states she's been limiting her walking considerably to help facilitate offloading in addition to wearing her surgical shoe. 09/22/[address] Razo. The patient does not report pain or drainage associated with the chronic right foot diabetic ulcer over the past week. She states her blood sugars have been over 150 however and she's been more active walking over the past week. 09/07/15 Seen by Jules Waller PA-C. The patient reports stable symptoms of pain and drainage fro her right foot diabetic ulcer. She also reports that she has a compound fracture of a toe on the left foot which Dr. Bañuelos wants to fix but the patient is worried that she will not be able to walk with an ulcer on one foot and a surgical wound on the other. 09/01/[address] Razo. The patient does not report pain or significant drainage associated with the chronic right plantar foot diabetic ulcer over the past week. She continues to wear the offloading shoe and states her blood sugars are mostly below 150. 08/23/15 Seen by Jules Waller PA-C. The patient reports that the pain in her ankle resolved on it's own in the past few days. She reports no increase in drainage from her ulcer. 08/16/15 Seen by Jules Waller PA-C. The patient reports pain in her right ankle area and associates this pain with ulcer infections of her first metatarsal head. She is requesting antibiotics today. She reports a significant decrease in ulcer drainage, stable ulcer pain and denies fever, chills or malaise. 08/09/15 Seen by Jules Waller PA-C. The patient reports no increase in pain or drainage from her diabetic right foot ulcer since her last evaluation. 08/02/[address] Razo. The patient's new to our clinic and has been referred by Dr. Bañuelos for a right plantar diabetic foot ulcer. She states that about one month ago she stepped on a carpet nail at home and since then the wound has not healed and in fact deteriorated over the past week noting increased purulent drainage, a foul odor , and swelling and redness of the right foot. She was seen by Dr. Bañuelos at the end of last week who debrided the ulcer, took a culture, and started the patient on Augmentin. She states the drainage has decreased and the foot swelling and redness has resolved. She historically as not had very good control of her blood sugars and notes her last A1c was 'around 9' . She does not report a known history of PAD and does not report claudication or rest pain nor does she report fevers, side effects from the Augmentin, or feeling unwell in general over the past few days. Past Medical History This information was obtained from the patient Patient has a medical history of: Diabetes, type 2 (since age 42) Hypertension Hypothyroidism Peripheral Neuropathy Factor V Leiden deficiency Sleep Apnea Psoriasis CKD, stage III (early) Depression Retina Surgery Chronic osteomyelitis (right foot metatarsals) Diabetic foot ulcer (Yusuf grade 3; right 1st MTPJ; complicated by chronic osteomyelitis and cellulitis; s/p TMA 11/2016) Complaints and Symptoms This information was obtained from the patient Patient complains of: General Notes: I have reviewed and concur with the Review of Systems and Past Family Social History documents completed by the clinician, I have reviewed and concur with the Wound Assessment document completed by the clinician Hematologic/Lymphatic: Bleeding / Clotting Disorders Integumentary (Hair/Skin/Nails): Open Sore Musculoskeletal: Assistive Devices, Deformities Neurological: Abnormal Gait, Loss of Protective Sensation Prior Wound History: Drainage, Erythema, Malodor, Pain Respiratory: Oxygen Use Patient denies complaints or symptoms related to: Cardiovascular (Central): Irregular heart beat Cardiovascular (Central/Peripheral): Intermittent Claudication, Lower extremity (leg) resting pain, Lower extremity (leg) swelling Constitutional Symptoms (General Health): Chills, Fever Ear/Nose/Mouth/Throat: Hearing Loss / Aid Gastrointestinal (GI): Nausea / Vomiting, Stomach/abdominal pain Hematologic/Lymphatic: Bruising, Bleeding Tendency Musculoskeletal: Joint Swelling Prior Wound History: Bleeding Psychiatric: Memory Loss Respiratory: Shortness of Breath OBJECTIVE Constitutional BP elevated; Afebrile; Alert and in no distress. Well developed. Alert. Clean appearing.. Height/Length: 62 in (157.48 cm), Weight: 142.7 lbs (64.86 kgs), BMI: 26.1, Temperature: 98.2 ?F (36.78 ?C), Pulse: 71 bpm, Respiratory Rate: 18 breaths/min, Blood Pressure: 197/79 mmHg, Capillary Blood Glucose: 289 mg/dl, Pulse Oximetry: 95 %. Vital Signs Notes: Glucose per patient. Respiratory: No respiratory distress. Even respirations and without use of accessory muscles.. Cardiovascular: Affected extremity exhibits no peripheral edema or cyanosis, is warm, and is well perfused. Capillary refill is less than 2 seconds. Integumentary (Hair, Skin) No periwound erythema, warmth, or significant drainage. No periwound rashes appreciated or noted otherwise.. Refer to appropriate clinician wound documentation for this visit; left lower leg ulcer extends to subcut with base partially covered with pink granulation, remainder fibrin and slough; right lower leg ulcers extend to dermis. Wound #10 Left Ankle is an acute Partial Thickness Trauma Wound and has received a status of Not Healed. Subsequent wound encounter measurements are 0.9cm length x 0.3cm width x 0.1cm depth, with an area of 0.27 sq cm and a volume of 0.027 cubic cm. No tunneling has been noted. No sinus tract has been noted. No undermining has been noted. There was no drainage noted. The patient reports a wound pain of level 1/10. The wound margin is attached. Wound bed has Yes epithelialization, No eschar, Yes slough, No granulation. The periwound skin texture is normal. The periwound skin moisture is normal. The periwound skin color is normal. The temperature of the periwound skin is WNL. Periwound skin does not exhibit signs or symptoms of infection. Local Pulse is Normal. Wound #11 Left, Lateral Leg - lower is an acute Partial Thickness Trauma Wound and has received a status of Not Healed. Subsequent wound encounter measurements are 0.2cm length x 0.2cm width x 0.1cm depth, with an area of 0.04 sq cm and a volume of 0.004 cubic cm. No tunneling has been noted. No sinus tract has been noted. No undermining has been noted. There was no drainage noted. The patient reports a wound pain of level 0/ 10. The wound margin is attached. Wound bed has No epithelialization, No eschar, Yes slough, No granulation. The periwound skin texture is normal. The periwound skin moisture is normal. The periwound skin color is normal. The temperature of the periwound skin is WNL. Periwound skin presents with s/s of infection. Confirmation Description and Treatment Plan is: Systemic Antibiotics Prescribed. Local Pulse is Normal. Wound #12 Right, Lateral Leg - lower is an acute Partial Thickness Trauma Wound and has received a status of Not Healed. Subsequent wound encounter measurements are 0.6cm length x 0.6cm width x 0.1cm depth, with an area of 0.36 sq cm and a volume of 0.036 cubic cm. No tunneling has been noted. No sinus tract has been noted. No undermining has been noted. There was no drainage noted. The patient reports a wound pain of level 0/ 10. The wound margin is attached. Wound bed has Yes epithelialization, No eschar, Yes slough, No granulation. The periwound skin texture is normal. The periwound skin moisture is normal. The periwound skin color is normal. The temperature of the periwound skin is WNL. Periwound skin does not exhibit signs or symptoms of infection. Local Pulse is Normal. Wound #13 Right, Posterior Leg - lower is an acute Full Thickness Trauma Wound and has received an outcome of Healed - no new wound(s). Subsequent wound encounter measurements are 0.5cm length x 0.5cm width x 0.1cm depth, with an area of 0.25 sq cm and a volume of 0.025 cubic cm. No tunneling has been noted. No sinus tract has been noted. No undermining has been noted. There was no drainage noted. The patient reports a wound pain of level 0/10. The wound margin is attached. Wound bed has Yes epithelialization , No eschar, Yes slough, No granulation. The periwound skin texture is normal. The periwound skin moisture is normal. The periwound skin color is normal. The temperature of the periwound skin is WNL. Periwound skin does not exhibit signs or symptoms of infection. Local Pulse is Normal. General Notes: Wound healed post debridement of dried exudate. ASSESSMENT Active Problems ICD-10 (Encounter Diagnosis) S81.802D - Unspecified open wound, left lower leg, subsequent encounter (Encounter Diagnosis) S81.801D - Unspecified open wound, right lower leg, subsequent encounter PROCEDURES Wound #10 Wound #10 (Trauma Wound) is located on the left ankle. A skin/subcutaneous tissue level surgical debridement with a total area debrided of 0.21 sq cm was performed by Mook Razo MD. Subcutaneous was removed along with devitalized tissue: exudate and slough. The following instrument(s) were used: curette. Pain control was achieved using 4% Lido. A time out was conducted prior to the start of the procedure. A minimal amount of bleeding was controlled with n/a. The procedure was tolerated well with a pain level of 0 throughout and a pain level of 0 following the procedure. Post Debridement Measurements: 0.7cm length x 0.3cm width x 0.2cm depth; with an area of 0.21 sq cm and a volume of 0.042 cubic cm; Wound #12 Wound #12 (Trauma Wound) is located on the right, lateral leg - lower. A non- selective mechanical debridement with a total area debrided of 0.09 sq cm was performed by Mook Razo MD. Non-viable tissue was removed.The procedure was tolerated well with a pain level of 0 throughout and a pain level of 0 following the procedure. Post Debridement Measurements: 0.3cm length x 0.3cm width x 0.1cm depth; with an area of 0.09 sq cm and a volume of 0.009 cubic cm; General Notes: Dried exudate removed. Wound #13 Wound #13 (Trauma Wound) is located on the right, posterior leg - lower. A non- selective mechanical debridement with a total area debrided of 0.01 sq cm was performed by Mook Razo MD. Non-viable tissue was removed.The procedure was tolerated well with a pain level of 0 throughout and a pain level of 0 following the procedure. Post Debridement Measurements: 0.1cm length x 0.1cm width x 0.1cm depth; with an area of 0.01 sq cm and a volume of 0.001 cubic cm; General Notes: Dried exudate removed. Additional Information Muscle fascia or bone removed and sent to pathology?: No PLAN Wound Orders: Wound #10 Left Ankle Anesthetic Topical Xylocaine to wound bed. - In clinic only. Cleanser Cleanse Wound: - Normal saline and gauze. May Shower. - Use a cast protector. Dressings Cover and secure with: - Telfa pad secured with hypafix tape. Change Dressing: - Every other day. Wound #11 Left, Lateral Leg - lower Anesthetic Topical Xylocaine to wound bed. - In clinic only. Cleanser Cleanse Wound: - Normal saline and gauze. May Shower. - Use a cast protector. Dressings Cover and secure with: - Telfa pad secured with hypafix tape. Change Dressing: - Every other day. Wound #12 Right, Lateral Leg - lower Anesthetic Topical Xylocaine to wound bed. - In clinic only. Cleanser Cleanse Wound: - Normal saline and gauze. May Shower. - Use a cast protector. Dressings Cover and secure with: - Telfa pad secured with hypafix tape. Change Dressing: - Every other day. Additional Orders: Follow-Up Appointments Return Appointment: - - One week. Other information: If you develop fever, chills, increased pain, drainage, redness or swelling please call our office. If after hours, respond to the ER. Should you experience any significant changes in your wound(s) or have any questions regarding your home care instructions please contact the wound center @ [phone]. If after hours, contact your primary care physician or go to the hospital emergency room. Scribing Attestation I attest, as the nurse, that I scribed these orders for the physician. I've reviewed the clinician's documentation and agree with the evaluation and plan as written. In addition the patient's wounds demonstrate evidence of non-viable devitalized tissue and they will continue to benefit from sharp debridement to help promote granulation and expedite healing. Electronic Signature(s) Signed By: Date: Mook Razo MD 11/01/2017 14:31:14 Mook Razo MD 11/01/2017 14:31:14 Entered By: Mook Razo on 10/31/2017 11:18:52
== END ==
PROVIDERS: PCP Family Medicine; Visit Provider Internal Medicine
DX: S81.802D Unspecified open wound, left lower leg, subsequent encounter (principal); S81.801D Unspecified open wound, right lower leg, subsequent encounter; S91.002A Unspecified open wound, left ankle, initial encounter
CPT/HCPCS: 11042

== ENCOUNTER → 2017-11-07 08:41 | Outpatient (CLI) | payer MEDICARE, OTHER, SELFPAY ==
--- NOTE | 2017-11-07 | OV.WND_ITS ---
Progress Note Details Patient Name: Kemi Alberto Patient Number: [id number] PatientPatientDate: 11/07/2017 Clinician: Susan Perera Clinician Cosigner: Jemima Bergman Physician / Gas Transfer Operator: Mook Razo SUBJECTIVE Chief Complaint This information was obtained from the patient Cellulitis bilateral lower extremities. Allergies codeine (Reaction: nausea) HPI This information was obtained from the patient 11/07/17. Seen by Dr. Razo. The patient does not report significant pain or increased drainage associated with the chronic bilateral lower leg trauma wounds since her last visit. 10/31/17. Seen by Dr. Razo. The patient does not report significant pain or increased drainage associated with the chronic bilateral lower leg trauma wounds since her last visit and she's completed her course of doxycycline that was treating bilateral lower leg cellulitis. 10/24/17. Seen by Dr. Razo. The patient does not report significant pain or increased drainage associated with the chronic bilateral lower leg trauma wounds since her last visit and she feels the leg swelling and redness have improved since starting on doxycycline for cellulitis associated with the wounds. 10/19/17. Seen by Dr. Razo. The patient returns our clinic with chronic bilateral lower leg trauma wounds that have occurred as a result of excoriation's associated with a rash and pruritus of the legs. She's now on doxycycline and feels the redness is improving. She does not report significant drainage however has a history of this in the past as well as a recent right partial foot amputation. She has a history of poor compliance regarding her diabetes and her blood sugar today is 329. 04/25/17. Seen by Dr. Razo. The patient does not report significant pain or increased drainage associated with the chronic right foot is transmetatarsal amputation site since her last visit. 04/18/17. Seen by Dr. Razo. The patient does not report significant pain or increased drainage associated with the chronic right foot diabetic ulcer that started last November following wound dehiscence of a TMA amputation site. She's offloading with a knee scooter and is now off of antibiotic. 04/09/17 See by Jules Waller PA-C. The patient reports that she has been up on her feet more than before. She does not report increased drainage. Blood sugars continue to be above 150, and she continues on Prednisone through the end of the month per Pulmonology. 04/04/17. Seen by Dr. Razo. The patient does not report significant pain or increased drainage associated with the chronic right foot is transmetatarsal amputation site since her last visit. She is now off of IV antibiotics based on a recent eosinophilic pneumonia thought to be caused by IV daptomycin. She is also not currently undergoing hyperbaric oxygen therapy as her primary care provider has advised to hold this following a recent pneumonia. 03/27/17. Seen by Jules Waller PA-C. The patient reports that she was recently discharged from [facility] in [place] after a severe pulmonary reaction to Daptomycin. She is currently on supplemental oxygen and reports that her strength is returning. While in hospital her CUONG dressing was not changed. She is on an oral antibiotic prescribed at discharge, but does not recall the name of it. In addition, her blood sugars have been running >150 since discharge. 03/19/17. Seen by Dr. Razo. The patient does not report pain nor increased drainage associated with chronic right foot transmetatarsal amputation site and she continues on IV daptomycin for chronic osteomyelitis of the foot without reported adverse side effects, fevers, feeling unwell. She is also tolerating hyperbaric oxygen therapy and her previously reported left and right ear pain have resolved. 03/12/17. Seen by Dr. Razo. The patient reports improvement in terms of pain associated with the right foot transmetatarsal amputation and continues on IV daptomycin for associated chronic osteomyelitis without reporting adverse side effects, fevers, or feeling unwell in general. 03/05/17. Seen by Dr. Razo. The patient reports improvement in terms of pain associated with the right foot transmetatarsal amputation and continues on IV daptomycin for associated chronic osteomyelitis. She reports elevated blood sugars in the 200s noting her high dose of short acting insulin frequently results in blood sugars in the 50's despite mostly adhering to a consistent diabetic diet. She's offloading the foot as recommended using an offloading shoe and knee scooter. She's also been authorized for HBOT and is tolerating negative pressure wound therapy which is treating the dehisced surgical wound without difficulty. 03/01/17. Seen by Dr. Razo. The patient reports a significant improvement in pain associated with the right foot transmetatarsal amputation site. She does not report significant drainage and continues on IV daptomycin for underlying chronic osteomyelitis and does not report adverse side effects, fevers, or feeling unwell in general. Her blood sugars are also between 150 and 200 mostly. 02/21/17. Seen by Dr. Razo. The patient reports a significant improvement in pain associated with the right foot transmetatarsal amputation site. This was performed November due to deterioration of the Yusuf grade 3 chronic diabetic ulcer and associated abscess. She is now being treated with IV daptomycin for osteomyelitis that occurred postoperatively and has been approved for hyperbaric oxygen therapy noting the surgical wound has dehisced and she's recently been admitted for cellulitis of the right lower leg. 02/15/17. Seen by Dr. Razo. The patient returns to our clinic following admission to the hospital last week for cellulitis of the right lower leg associated with wound dehiscence of the right foot transmetatarsal amputation which was performed in November. Her recent culture grew staph and enterococcus faecalis and she is now on IV daptomycin. She reports some moderate pain at the forefoot and her MRI suggested osteomyelitis at the first metatarsal stump. She'd been treated over the previous year for a Yusuf grade 3 diabetic ulcer at the right first MTPJ and prior to the amputation this ulcer deteriorated significantly at which time she was transferred back to her company pilot, Dr. Bañuelos, who referred her on to Dr. Purvis who performed the TMA. Her diabetes has historically been poorly controlled however her recent A1c has decreased to 7.7. She also had a history of noncompliance in terms of weightbearing. 12/05/16. Seen by Jules Waller PA-C. The patient reports continued difficulty keeping her blood sugars under control. She has had sugars recently as high as 450 and as low as 50. She is working with endocrinology on this issue and is feeling fatigued by the lack of perceived progress so far. Yayo ulcers have not had increased drainage. 11/28/16. Seen by Dr. Razo. The patient reports some persistent intermittent pain associated with the chronic right plantar foot diabetic ulcer. She continues on antibiotics for underlying chronic osteomyelitis of the first MTPJ. She has an MRI scheduled on to reevaluate the osteomyelitis and is awaiting an appointment with Dr. Bañuelos, podiatry, for further evaluation. She admits to not using her offloading shoe at all times and has been wearing her slipper around the house. She has also not been able start hyperbaric oxygen therapy as she states she cannot afford the chest x-ray which is required prior to starting treatment. 11/21/16. Seen by Dr. Razo. The patient reports persistent pain associated with the right foot and ankle and she was started on doxycycline following her visit last week to treat chronic osteomyelitis of the right first MTPJ. She does not report adverse side effects nor fevers or feeling unwell. She's also wearing her offloading shoe as recommended and minimizing walking as much as possible. Her bloods sugars have been relatively well controlled recently with most below 150.Of note, her arterial Doppler from July 2015 was relatively unremarkable with biphasic flow in the right lower leg and triphasic in the left. Also an MRI from May of this year showed a small abscess adjacent to the first MTPJ along with possible osteomyelitis at that site. Subsequent serial x-rays did not confirm osteomyelitis or bony destruction however. Regarding her chronic right lower leg trauma wound, she does not report significant pain or drainage at this site. 11/14/16. Seen by Dr. Razo. The patient reports some increasing pain in the right MTPJ as well as left ankle over the past few days and her recent wound culture grew only a Hailey species. She does not report increased drainage associated with the right plantar foot diabetic ulcer however has started using topical gentamicin on the right lateral lower leg trauma wound due to increased redness in the periwound area. She also states her blood sugars have been higher this past week and her insulin was adjusted by her night clerk. 11/07/16. Seen by Dr. Razo. The patient states the cuong wound VAC became displaced on Sunday. She reports some mild pain in the foot beneath the chronic right plantar foot diabetic ulcer but does not report increased drainage from the site nor from the right lower leg nor right dorsal foot trauma wounds. She states her blood sugars continue to be well controlled. 11/02/16. Seen by Dr. Razo. The patient does not report increased drainage or pain associated with the right plantar foot diabetic ulcer nor right lower leg and dorsal foot wounds since her last visit. 10/31/16. Seen by Dr. Razo. The patient reports that her wound VAC tubing was cut on her bed and the dressing was ripped off on Sunday. She is a report significant drainage or pain associated with the chronic right plantar foot diabetic ulcer nor right lower leg and dorsal foot wounds. 10/26/16. Seen by Dr. Razo. The patient states her wound VAC last seal yesterday and she removed it. Is treating the chronic right plantar foot diabetic ulcer and she does not report significant drainage since her last visit. She still reports some pain associated with the right lower leg and right dorsal foot trauma wounds that started as excoriations from a supposedly blood bite last week. She's been applying topical gentamicin to the sites but has not kept the sites covered as recommended. 10/24/16. Seen by Dr. Razo. The patient reports some increased redness and swelling of the right lower leg she feels that is associated with her scratching a bug bite. She does not report fevers or pain at the site. She does not report significant drainage associated with the chronic right first MTPJ diabetic ulcer and is now on Augmentin due to the MSSA positive culture taken last week. 10/19/16. Seen by Dr. Razo. The patient called this morning reporting increased pain and swelling of the right foot over the past 24 hours. She is being treated for a chronic right plantar foot diabetic ulcer and her recent wound culture grew MSSA however she does not pharmacy picking technician her prescription for topical gentamicin at the pharmacy as recommended 2 days ago. She does not report fevers but states her blood sugars are over 300 today. 10/17/16. Seen by Dr. Razo. Both the patient and staff report increased drainage associated with the chronic right plantar foot diabetic ulcer since her last visit. He also noted increased maceration in the periwound area and she's been wearing her wound VAC since last seen last Sunday. 10/13/16. Seen by Dr. Razo. The patient does not report increased drainage nor other issues regarding the chronic right plantar foot diabetic ulcers since her last visit. Her wound VAC remained intact and functional over the interim and there are no other acute issues to report. 10/10/16. Seen by Dr. Razo. The patient states the wound VAC lost its seal and was removed on Sunday evening. She states there was some maceration along the medial margin of the chronic right plantar foot diabetic ulcer but she does not report pain in the foot. She is offloading it at all times mostly due to her recent right knee injury for which she wears a brace. 10/06/16. Seen by Dr. Razo. The patient does not report significant drainage associated with the chronic left foot diabetic ulcer. Following her fall last week she saw her primary care provider and is now wearing a left knee brace and has been limited in her ability due to knee pain. 10/03/16. Seen by Dr. Razo. The patient reports falling this morning when she tripped over her vacuum can cleaner and injured her knee however does not report any new or acute problems regarding her chronic left foot diabetic ulcer. She states she uses her knee scooter at home in a wheelchair when shopping however does admit to walking without an offloading device infrequently. She states she is willing to try the wound VAC again noting that this has been difficult to use on the plantar surface of her foot due to her walking. She also notes that her blood sugars intermittently are over 200. 09/29/16. Seen by Dr. Razo. The patient states her wound vac malfunctioned about 3 hours after leaving the clinic on Sunday and she subsequently took it off. She reports increased drainage from the chronic left foot diabetic ulcer the past 2 days along with some foot and ankle pain but does not report fevers or feeling unwell. She also notes she's not using the knee scooter at all times to offload the foot as recommended. 09/26/16. Seen by Dr. Razo. The patient states her wound VAC began to functioning correctly on Sunday morning and so she took it off. She does not report significant drainage or pain associated with the chronic left plantar foot diabetic ulcer since then. She notes her blood sugars continued to be quite labile since her night clerk has decreased her Levemir and added NovoLog to her diabetes regimen. 09/14/16. Seen by Dr. Razo. The patient does not report pain nor significant drainage associated with the chronic left plantar foot diabetic ulcer since her last visit. She tolerated negative pressure wound therapy without difficulty and is offloading as recommended. Her blood sugar today is 241 although she states most of them have been well- controlled recently. 09/18/16. Seen by Jules Waller PA-C. The patient reports that her SNAP device came off her ulcer yesterday. She continues to have blood sugars above 150 and states that she is working closely with an night clerk to get her blood sugars lower. 09/15/16. Seen by Dr. Razo. The patient does not report pain or increased drainage associated with the chronic left plantar foot diabetic ulcer since her last visit and she's tolerating negative pressure wound therapy is started two days ago without any problems. Her blood sugar today is 221 and has been elevated on a number of recent visits. 09/13/16. Seen by Jules Waller PA-C. The patient reports that her blood sugars continue to be above 150 on many mornings. She reports no increase in drainage from her left foot diabetic ulcer. 09/08/16. Seen by Dr. Razo. The patient does not report pain or significant drainage associated with the chronic left plantar foot diabetic ulcer since her last visit. She is offloading with the surgical shoe and states her blood sugars continue to be well- controlled. Also, the patient's culture taken at her last visit grew a Hailey species. 09/03/16. Seen by Jules Waller PA-C. The patient reports that she has seen an night clerk to attain better control of her blood sugars as her last A1c was >8. Of note her recent X-ray confirms the resolution of her osteomyelitis of her left foot. 08/15/16. Seen by Jules Waller PA-C. The patient reports she has had some blood sugar readings this week above 150, but is trying to keep them below 150. She continues taking Augmentin for osteomyelitis and her ulcer of the left foot has had stable drainage. 08/09/16. Seen by Jules Waller PA-C. The patient reports very good blood sugar control over the past few weeks with most readings below 150. She has been trying to be compliant with offloading her left foot diabetic ulcer and notes no increase in drainage from the ulcer since her last evaluation. She had an X-ray today of the left foot to reassess her chronic osteomyelitis of this foot. 08/04/16. Seen by Dr. Razo. The patient does not report pain nor significant drainage associated with the chronic left plantar foot diabetic ulcer since her last visit. She continues on Augmentin for osteomyelitis of the left first metatarsal and does not report ever side effects. She is offloading with front offloading shoe and her blood sugars remained well controlled.She's also been medically cleared from her [employer] ad[employer] consultant for hyperbaric oxygen therapy following her recent vitrectomy 2 months ago. 07/26/16. Seen by Dr. Razo. The patient does not report pain nor significant drainage associated with the chronic left plantar foot diabetic ulcer since her last visit. She continues on Augmentin for osteomyelitis of the left first metatarsal and does not report ever side effects. She is offloading with front offloading shoe and her blood sugars remained well controlled. 07/19/16. Seen by Dr. Razo. The patient does not report pain nor significant drainage associated with the chronic left plantar foot diabetic ulcer since her last visit. She continues on Augmentin for osteomyelitis of the left first metatarsal and does not report ever side effects. She is offloading with front offloading shoe and her blood sugars remained well controlled. 07/12/16. Seen by Dr. Razo. The patient does not report significant pain nor drainage associated with the chronic left plantar foot diabetic ulcer since her last visit and she continues on Augmentin for underlying osteomyelitis of the left first metatarsal. She is offloading with a front offloading shoe and states her blood sugars are well controlled below 150 consistently. 07/03/16. Seen by Jules Waller PA-C. The patient reports that she has been in better control of her blood sugar this week with readings below 150. Drainage from her diabetic ulcer of the left foot has remained stable. 06/27/16. Seen by Jules Waller PA-C. The patient reports that she did a great deal of walking since she was last evaluated as she was hosting 5 guests in her house and helping organize a 300 seat banquet. She has noted increased drainage from her left foot diabetic ulcer and continues on augmentin to treat her chronic osteomyelitis of the left foot. She also reports decreased hearing in her left ear this week without URI symptoms and would like me to look at her eardrum. 06/20/16. Seen by Jules Waller PA-C. The patient reports continued drainage from her left foot chronic diabetic ulcer with underlying osteomyelitis. Her repeat MRI has demonstrated, again, signs of osteomyelitis in the forefoot near her ulcer site. Her ulcer has rently deteriorated further with evidence of deep structure necrosis, such as tendon necrosis. 06/13/16. Seen by Jules Waller PA-C. The patient reports increased drainage from her left foot diabetic ulcer. She reports improved blood sugar control this week and does not recall the results of her last A1c, which was 5 months ago. 06/06/16. Seen by Jules Waller PA-C. The patient reports blood sugars above 150 this week and self reports noncompliance with her diabetic diet. She does not report increased drainage from her chronic left foot diabetic ulcer. 05/26/16. Seen by Dr. Razo. The patient does not report pain or drainage associated with the chronic left foot diabetic ulcer since her last visit. She does however report a new wound on the right plantar foot caused by a puncture from an unknown object. Dr. Bañuelos explored the area but did not find the source and has subsequently sutured the wound. She's now on Augmentin for empiric coverage and she's asked if I could take a look at the wound to be sure it's ok. 05/18/16. Seen by Dr. Razo. The patient does not report increased drainage associated with the chronic left first plantar MT head diabetic ulcer since her last visit. She continues on Keflex for a wound infection and also has been given a prescription for Augmentin following a dog bite within the past week. She has not yet started to take the Augmentin. 05/11/16. Seen by Dr. Razo. The patient does not report increased drainage associated with the chronic left 1st plantar MT head diabetic ulcer however she does report pain on bearing weight just lateral to this site where in the past there's been a questionable pathologic fracture reported on xray last year. Her wound culture from the last visit grew tian- sensitive Staph and group B strep and she's not currently on antibiotics. She admits to not using a walker or cane to help offload the ulcer site and states her blood sugars are typically below 200. 03/24/16. Seen by Dr. Razo. The patient does not report drainage associated with the left 1st toe diabetic ulcer over the past week. 03/14/16. Seen by Dr. Razo. The patient does not report drainage associated with the left 1st toe diabetic ulcer over the past week however she continues to report some pain over the distal left 1st MT at the site of her prior amputation. She does not report fevers however her blood sugars today are 240 and she admits that they're elevated as well at home. 02/29/16 Seen by Jules Waller PA-C. The patient reports decreased drainage from her left 1st toe diabetic ulcer as well as from her chronic right foot diabetic ulcer. 02/22/16 Seen by Jules Waller PA-C. The patient reports that she stopped using a foam space between her 1st and 2nd left toes and has noticed today a new ulcer between her toes on the left 1st toe. Her chronic right foot ulcer has had stable drainage. 02/15/16 Seen by Jules Waller PA-C. The patient reports stable drainage from her right 2nd MT diabetic ulcer since her last evaluation. Her MRI shows radiographic evidence consistent with osteomyelitis of the right foot. 02/08/16. Seen by Dr. Razo. The patient does not report pain or significant drainage associated with the chronic right 2nd MT diabetic ulcer over the past week. She does admit to being more active and walking more than recommended although she continues to wear her offloading show. 01/25/16. Seen by Dr. Razo. The patient does not report increased drainage associated with the right 2nd MT diabetic ulcer since her last visit. 01/14/16. Seen by Dr. Razo. The patient does not report increased drainage or pain associate with the right 2nd MT diabetic ulcer since her last visit. She's now on Bactrim for the recent coag negative Staph positive wound culture and does not report adverse side effects. She reports falling in her bathroom 2 days ago hitting the back of her head with resultant nausea for a few hours but no open wounds. She does not report symptoms preceding the fall and states she has what sound like falls associated with imbalance every 1-2 months. She's not discussed with incident with another provider yet and is currently asymptomatic. She also reports a new diabetic ulcer on the left 2nd toe but does not recall injuring the toe. 01/05/16. Seen by Dr. Razo. The patient does not report significant drainage associated with the right 2nd MT diabetic ulcer since her last visit and she continues to offload with a surgical offloading shoe. She states her blood sugars have been a bit elevated this past week and its 230 in clinic today. 12/24/15. Seen by Dr. Razo. The patient reports persistent drainage from the chronic right 2nd MT diabetic ulcer and states her blood sugars are mostly between 100 and 200. She's offloading at all times using the offloading shoe but is not using a walker to cane to assist. She also continues on Bactrim for the recent Raoutella positive wound culture and does not report adverse side effects. 12/14/15 Seen by Jules Waller PA-C. The patient reports no drainage since her last dressing change from her right second MT ulcer. 12/08/15. Seen by Dr. Razo. The patient feels the pain associated with the right second MT pathologic fracture is improving and she's returned to wearing an offloading shoe instead of her [place] boot due to balance problems. She does not report increased drainage associated with the right plantar first MT diabetic ulcer however admits to being more active than she should be and admits to not using a walker or cane to help offload. She also states her blood sugars are typically between 100 and 200. Of note, her blood sugar in clinic today is 54 and she states she did not have breakfast before coming to her appointment. She's also on Augmentin which was started due to her recent MRI reporting osteomyelitis at the right 2nd MT head. 12/01/15. Seen by Dr. Razo. The patient was seen by Dr. Bañuelos earlier this week for his recently diagnosed on MRI right 2nd MT non-displaced fracture. The original trauma occurred when she hit the foot on a bed post 5 weeks ago. The MRI also indicated osteomyelitis is present at the right 2nd MT head and the patient's now on Augmentin that was started by Dr. Bañuelos and has changed to an offloading boot. She does not report significant drainage associated with the right plantar surface 1st MTPJ diabetic ulcer and states her blood sugars are around 150 usually. She does report persistent moderate pain at the right 2nd MT head however. 11/24/15. Seen by Dr. Razo. The patient continues to report significant pain associated with the right 1st and 2nd MT heads noting this pain first occurred in the last week in September when she forcefully hit this area of the foot on a bed post. She has later today to evaluate for a possible fracture and has been wearing her offloading shoe as recommended to relieve pressure at the 1st MTPJ plantar diabetic foot ulcer. She states her blood sugars have been a bit elevate recently between 150 and 200 and she does not report fevers or feeling unwell in general. 11/16/15 Seen by Jules Waller PA-C. The patient reports that her right 1st metatarsal head ulcer, which has been constantly present since 06/2015 has had stable drainage and has not improved in the past week despite complying with offloading instructions. She has not had any associated pain. 11/09/15 Seen by Jules Waller PA-C. The patient reports feeling better this week and her 1st metatarsal head ulcer has had stable drainage since last week. Her blood sugars have been running above 150 this week. 11/03/15. Seen by Dr. Razo. The patient reports feeling generally unwell and weak while reporting only urinary frequency as a symptom. She states her blood sugars have been very labile over the past week but does not report increased drainage from the right foot diabetic ulcer site. She does continue to complain of pain at the site of the right 1st MT amputation following an event when she hit the foot on a piece of furniture about 10 days ago. 10/25/15. Seen by Dr. Razo. The patient reports accidentally soaking her right foot diabetic ulcer in a roberto this weekend despite wearing a cast protector. She does not report increased drainage at the ulcer site and rinsed and dressed the ulcer after the incident. She also hit the foot off of a bed and reports a moderate amount of pain at the site of the right 1st toe amputation. 10/18/15. Seen by Dr. Razo. The patient's been offloading the right foot diabetic ulcer as much as possible by wearing a surgical shoe and limiting her walking. She states her blood sugars have been as low 50 this past week as she's been trying to improve her diabetes management noting her recent A1c was over 9. 09/28/[address] Razo. The patient does not report significant drainage from the chronic right foot diabetic ulcer over the past week and states she's been limiting her walking considerably to help facilitate offloading in addition to wearing her surgical shoe. 09/22/[address] Razo. The patient does not report pain or drainage associated with the chronic right foot diabetic ulcer over the past week. She states her blood sugars have been over 150 however and she's been more active walking over the past week. 09/07/15 Seen by Jules Waller PA-C. The patient reports stable symptoms of pain and drainage fro her right foot diabetic ulcer. She also reports that she has a compound fracture of a toe on the left foot which Dr. Bañuelos wants to fix but the patient is worried that she will not be able to walk with an ulcer on one foot and a surgical wound on the other. 09/01/[address] Razo. The patient does not report pain or significant drainage associated with the chronic right plantar foot diabetic ulcer over the past week. She continues to wear the offloading shoe and states her blood sugars are mostly below 150. 08/23/15 Seen by Jules Waller PA-C. The patient reports that the pain in her ankle resolved on it's own in the past few days. She reports no increase in drainage from her ulcer. 08/16/15 Seen by Jules Waller PA-C. The patient reports pain in her right ankle area and associates this pain with ulcer infections of her first metatarsal head. She is requesting antibiotics today. She reports a significant decrease in ulcer drainage, stable ulcer pain and denies fever, chills or malaise. 08/09/15 Seen by Jules Waller PA-C. The patient reports no increase in pain or drainage from her diabetic right foot ulcer since her last evaluation. 08/02/[address] Razo. The patient's new to our clinic and has been referred by Dr. Bañuelos for a right plantar diabetic foot ulcer. She states that about one month ago she stepped on a carpet nail at home and since then the wound has not healed and in fact deteriorated over the past week noting increased purulent drainage, a foul odor , and swelling and redness of the right foot. She was seen by Dr. Bañuelos at the end of last week who debrided the ulcer, took a culture, and started the patient on Augmentin. She states the drainage has decreased and the foot swelling and redness has resolved. She historically as not had very good control of her blood sugars and notes her last A1c was 'around 9' . She does not report a known history of PAD and does not report claudication or rest pain nor does she report fevers, side effects from the Augmentin, or feeling unwell in general over the past few days. Past Medical History This information was obtained from the patient Patient has a medical history of: Diabetes, type 2 (since age 42) Hypertension Hypothyroidism Peripheral Neuropathy Factor V Leiden deficiency Sleep Apnea Psoriasis CKD, stage III (early) Depression Retina Surgery Chronic osteomyelitis (right foot metatarsals) Diabetic foot ulcer (Yusuf grade 3; right 1st MTPJ; complicated by chronic osteomyelitis and cellulitis; s/p TMA 11/2016) Complaints and Symptoms This information was obtained from the patient Patient complains of: General Notes: I have reviewed and concur with the Review of Systems and Past Family Social History documents completed by the clinician, I have reviewed and concur with the Wound Assessment document completed by the clinician Hematologic/Lymphatic: Bleeding / Clotting Disorders Integumentary (Hair/Skin/Nails): Open Sore Musculoskeletal: Assistive Devices, Deformities Neurological: Abnormal Gait, Loss of Protective Sensation Prior Wound History: Drainage, Erythema, Malodor, Pain Respiratory: Oxygen Use Patient denies complaints or symptoms related to: Cardiovascular (Central): Irregular heart beat Cardiovascular (Central/Peripheral): Intermittent Claudication, Lower extremity (leg) resting pain, Lower extremity (leg) swelling Constitutional Symptoms (General Health): Chills, Fever Ear/Nose/Mouth/Throat: Hearing Loss / Aid Gastrointestinal (GI): Nausea / Vomiting, Stomach/abdominal pain Hematologic/Lymphatic: Bruising, Bleeding Tendency Musculoskeletal: Joint Swelling Prior Wound History: Bleeding Psychiatric: Memory Loss Respiratory: Shortness of Breath OBJECTIVE Constitutional BP elevated; Afebrile; Alert and in no distress. Well developed. Alert. Clean appearing.. Height/Length: 62 in (157.48 cm), Weight: 146.4 lbs (66.55 kgs), BMI: 26.8, Temperature: 97.9 ?F (36.61 ?C), Pulse: 61 bpm, Respiratory Rate: 18 breaths/min, Blood Pressure: 178/74 mmHg, Capillary Blood Glucose: 229 mg/dl, Pulse Oximetry: 96 %. Vital Signs Notes: Glucose per patient. Ears, Nose, Mouth, and Throat: No clinically significant hearing loss on informal examination. Respiratory: No respiratory distress. Even respirations and without use of accessory muscles.. Cardiovascular: 1+ bilateral lower leg edema. Integumentary (Hair, Skin) Refer to appropriate clinician wound documentation for this visit.. Wound #10 Left Ankle is an acute Partial Thickness Trauma Wound and has received an outcome of Healed - new wound(s) - prevent. Subsequent wound encounter measurements are 0cm length x 0cm width x 0cm depth, with an area of 0 sq cm and a volume of 0 cubic cm. No tunneling has been noted. No sinus tract has been noted. No undermining has been noted. There was no drainage noted. The patient reports a wound pain of level 1/10. The wound margin is attached. Wound bed has Yes epithelialization, Yes eschar, No slough, No granulation. The periwound skin texture is normal. The periwound skin moisture is normal. The periwound skin color is normal. The temperature of the periwound skin is WNL. Periwound skin does not exhibit signs or symptoms of infection. Local Pulse is Normal. Wound #11 Left, Lateral Leg - lower is an acute Partial Thickness Trauma Wound and has received an outcome of Healed - no new wound(s). Subsequent wound encounter measurements are 0cm length x 0cm width x 0cm depth, with an area of 0 sq cm and a volume of 0 cubic cm. No tunneling has been noted. No sinus tract has been noted. No undermining has been noted. There was no drainage noted. The patient reports a wound pain of level 0/10. The wound margin is attached. Wound bed has No epithelialization , Yes eschar, No slough, No granulation. The periwound skin texture is normal. The periwound skin moisture is normal. The periwound skin color is normal. The temperature of the periwound skin is WNL. Periwound skin does not exhibit signs or symptoms of infection. Local Pulse is Normal. Wound #12 Right, Lateral Leg - lower is an acute Partial Thickness Trauma Wound and has received an outcome of Healed - no new wound(s). Subsequent wound encounter measurements are 0cm length x 0cm width x 0cm depth, with an area of 0 sq cm and a volume of 0 cubic cm. No tunneling has been noted. No sinus tract has been noted. No undermining has been noted. There was no drainage noted. The patient reports a wound pain of level 0/10. The wound margin is attached. Wound bed has No epithelialization , Yes eschar, No slough, No granulation. The periwound skin texture is normal. The periwound skin moisture is normal. The periwound skin color is normal. The temperature of the periwound skin is WNL. Periwound skin does not exhibit signs or symptoms of infection. Local Pulse is Normal. ASSESSMENT Active Problems ICD-10 (Encounter Diagnosis) S81.802D - Unspecified open wound, left lower leg, subsequent encounter (Encounter Diagnosis) S81.801D - Unspecified open wound, right lower leg, subsequent encounter PROCEDURES Wound #10 Wound #10 (Trauma Wound) is located on the left ankle. A selective debridement with a total area debrided of 0 sq cm was performed by Mook Razo MD. to remove devitalized tissue: exudate. The following instrument(s) were used: curette. Pain control was achieved using 4% Lido. A time out was conducted prior to the start of the procedure. No bleeding occurred. The patient tolerated the procedure with a pain level of 0 throughout and a pain level of 0 following the procedure. Post Debridement Measurements: 0cm length x 0cm width x 0cm depth; with an area of 0 sq cm General Notes: Removed Dried exudate. Wound #11 Wound #11 (Trauma Wound) is located on the left, lateral leg - lower. A selective debridement with a total area debrided of 0 sq cm was performed by Mook Razo MD. to remove devitalized tissue: exudate. The following instrument(s) were used: curette. Pain control was achieved using 4% Lido. A time out was conducted prior to the start of the procedure. No bleeding occurred. The procedure was tolerated well with a pain level of 0 throughout and a pain level of 0 following the procedure. Post Debridement Measurements: 0cm length x 0cm width x 0cm depth; with an area of 0 sq cm General Notes: Removed duncan exudate Wound #12 Wound #12 (Trauma Wound) is located on the right, lateral leg - lower. A selective debridement with a total area debrided of 0 sq cm was performed by Mook Razo MD. dry exudate was removed along with devitalized tissue: exudate. The following instrument(s) were used: curette. Pain control was achieved using 5% Lido. A time out was conducted prior to the start of the procedure. No bleeding occurred. The procedure was tolerated well with a pain level of 0 throughout and a pain level of 0 following the procedure. Post Debridement Measurements: 0cm length x 0cm width x 0cm depth; with an area of 0 sq cm General Notes: removed dry exudate PLAN Additional Orders: Dressings Primary dressing: - Border foam for protection for a week. Follow-Up Appointments Discharge from Outpatient Services. Scribing Attestation I attest, as the nurse, that I scribed these orders for the physician. I've reviewed the clinician's documentation and agree with the evaluation and plan as written. In addition the patient's last remiaining complex wound is now healed. The patient is invited to return to our clinic for treatment of any future complex wounds. Post wound care and strategies to avoid recurrences were discussed. Electronic Signature(s) Signed By: Date: Mook Razo MD 11/08/2017 06:31:52 Entered By: Mook Razo on 11/08/2017 06:30:17
== END ==
PROVIDERS: PCP Family Medicine; Visit Provider Internal Medicine
DX: S81.802D Unspecified open wound, left lower leg, subsequent encounter (principal); S81.801D Unspecified open wound, right lower leg, subsequent encounter
CPT/HCPCS: 99211

== ENCOUNTER → 2018-02-14 13:48 | Outpatient (CLI) | payer MEDICARE, OTHER, SELFPAY | PROVIDERS: PCP Family Medicine; Referring Provider Podiatrist; Visit Provider Family Medicine | DX: S81.801A Unspecified open wound, right lower leg, initial encounter (principal); L03.115 Cellulitis of right lower limb; E10.622 Type 1 diabetes mellitus with other skin ulcer | CPT/HCPCS: 87070; 87075; 87205; 97597; 97598; 99213; 99214 ==

== ENCOUNTER → 2018-03-05 09:37 | Outpatient (CLI) | payer MEDICARE, OTHER, SELFPAY | PROVIDERS: PCP Family Medicine; Visit Provider Family Medicine | DX: S81.801A Unspecified open wound, right lower leg, initial encounter (principal); L03.115 Cellulitis of right lower limb; E10.622 Type 1 diabetes mellitus with other skin ulcer | CPT/HCPCS: 97597; 99213 ==

== ENCOUNTER → 2018-03-12 08:38 | Outpatient (CLI) | payer MEDICARE, OTHER, SELFPAY | PROVIDERS: PCP Family Medicine; Visit Provider Family Medicine | DX: S81.801A Unspecified open wound, right lower leg, initial encounter (principal); E10.622 Type 1 diabetes mellitus with other skin ulcer; S81.802A Unspecified open wound, left lower leg, initial encounter; L03.115 Cellulitis of right lower limb; Z91.038 Other insect allergy status | CPT/HCPCS: 97597; 99213 ==

== ENCOUNTER → 2018-03-20 08:38 | Outpatient (CLI) | payer MEDICARE, OTHER, SELFPAY | PROVIDERS: PCP Family Medicine; Visit Provider Family Medicine | DX: E10.622 Type 1 diabetes mellitus with other skin ulcer (principal); S81.802A Unspecified open wound, left lower leg, initial encounter; Z91.038 Other insect allergy status; L85.8 Other specified epidermal thickening; L03.115 Cellulitis of right lower limb | CPT/HCPCS: 97597; 99213 ==

== ENCOUNTER 2019-10-18 17:19 | Inpatient (IN) | payer MEDICARE, OTHER, SELFPAY ==
[2019-10-18] VITALS (14 sets, daily range): BP systolic 136–212; BP diastolic 60–93; PULSE 62–98; RESP 10–43; TEMP 36.6–37.4; O2SAT 89–100; BMI 20.9
--- NOTE | 2019-10-18 17:24 | DI.CT.S_ITS ---
PROCEDURE: CT CHEST ABD PEL W CON INDICATIONS: elevated wbc TECHNIQUE: After the administration of intravenous contrast, 5 mm thick sections acquired from the lung apices to the symphysis. 5 mm coronal and sagittal reformats were performed, with additional 7 mm MIP reformats through the lungs. For radiation dose reduction, the following was used: automated exposure control, adjustment of mA and/or kV according to patient size. COMPARISON: [facility], CT, CT HEAD/BRAIN WO CON, 10/18/2019, 17:27. FINDINGS: Image quality: Excellent. CHEST: Lungs and pleura: No this patient is intubated, with the tip of the endotracheal tube seen 2.5 cm above the rodolfo. Mild enhancing dependent consolidation is seen, which is attributed to atelectasis. No pleural effusions or pneumothorax. Central and peripheral airways appear patent and normal in caliber. Mediastinum: Heart size is normal. No pericardial effusion. No mediastinal or hilar adenopathy by size criteria. Thoracic aorta and central pulmonary arteries are normal in size. No large or central pulmonary emboli can be seen. Esophagus is normal in caliber. The distal esophagus demonstrates thickened gutierrez. No hiatal hernia. Chest wall: There is a right-sided central line, with the tip within the inferior aspect of the superior vena cava. No axillary or supraclavicular adenopathy by size criteria. Thyroid gland is small in size. ABDOMEN: Solid organs: Liver is normal in size and enhancement. Incidental note is made of focal fatty infiltration adjacent to the falciform ligament, which is not regarded to be pathologic. Gallbladder wall is not thickened. Biliary system is non dilated. Pancreas enhances normally. Spleen is normal in size and enhancement. No adrenal nodules. Kidneys demonstrate normal size and enhancement, without hydronephrosis. Peritoneum and bowel: Generalized wall thickening is seen of the colon, although most prominently between the transverse colon and the sigmoid colon. Minimal surrounding inflammatory changes are seen. No dilated loops of small bowel are seen. No free air or significant free fluid can be seen. No loculated abscess is detected. Nodes and vessels: No retroperitoneal or mesenteric adenopathy by size criteria. Aorta and inferior vena cava are normal in size. Miscellaneous: No ventral hernias. PELVIS: Genitourinary: A Dennison catheter is seen. This patient is status post hysterectomy. No adnexal masses are seen. Miscellaneous: No inguinal adenopathy. Bilateral fat containing inguinal hernias are seen. Bones: No suspicious bony lesions. No vertebral body compression fractures. Mild grade 1 anterolisthesis is seen at L5-S1, with associated bilateral pars defects. Focal degenerative change is seen at this level. Milder degenerative changes are seen elsewhere. Mild levoconvex scoliotic curvature is noted. IMPRESSION: Generalized wall thickening is seen involving the distal colon. Please consider infectious and inflammatory causes. Ischemia is possible, yet considered to be much less likely. The tip of the endotracheal tube is seen 2.5 cm above the rodolfo. The tip of the right-sided central line is seen within the inferior aspect of the superior vena cava. Dependent atelectasis, without nico infiltrates. There is wall thickening seen within the distal esophagus. Please consider esophagitis. Incidental note is made of: Dennison catheter Hysterectomy Bilateral fat containing inguinal hernias Bilateral L5 pars defects, with associated grade 1 L5-S1 anterolisthesis Focal L5-S1 degenerative change Dictated by: Gilberto Chang M.D. on 10/18/2019 at 17:14 Approved by: Gilberto Chang M.D. on 10/18/2019 at 17:21
--- NOTE | 2019-10-18 17:24 | DI.CT.S_ITS ---
PROCEDURE: CT HEAD/BRAIN WO CON INDICATIONS: confusion TECHNIQUE: Noncontrast 4.5 mm thick angled axial sections acquired from the foramen magnum to the vertex, with coronal and sagittal reformats. For radiation dose reduction, the following was used: automated exposure control, adjustment of mA and/or kV according to patient size. COMPARISON: None. FINDINGS: Image quality: There is streak artifact seen. CSF spaces: Basal cisterns are patent. No extra-axial fluid collections. The ventricles are symmetric in size and shape. Brain: No intracranial bleeds or masses. There is cerebral volume loss for age, with resultant ventricular and sulcal prominence. There are periventricular and deep white matter chronic small vessel ischemic changes. There is intracranial internal carotid artery atherosclerosis. Skull and face: Calvarium and visualized facial bones appear intact, without suspicious lesions. Sinuses: Visualized sinuses and mastoids are clear. This patient is intubated. IMPRESSION: Limited study demonstrating no significant intracranial abnormality. Dictated by: Gilberto Chang M.D. on 10/18/2019 at 17:12 Approved by: Gilberto Chang M.D. on 10/18/2019 at 17:14
--- NOTE | 2019-10-18 17:33 | ED.AMS ---
HPI - Altered Mental Status General Chief Complaint: Altered Mental Status Stated Complaint: Intubated, needs CT, from [facility] Time Seen by Provider: 10/18/19 17:22 Source: EMS and old records reviewed History of Present Illness HPI narrative: Patient is a 63-year-old diabetic female who presents from outside facility their CT scanner was down she presented to [facility] with altered mental status she is a known diabetic. While in the ED there she became extremely combative she was transferred here for head CT. Well in ED she was found to be hyperglycemic but not in DKA with a glucose of 550 with a pH of 7.5. She was started on an insulin drip she became extremely combative in the ED required intubation and central line and was placed on propofol. She remains sedated in the ED. MD complaint: altered mental status Related Data Home Medications Medication Instructions Recorded Confirmed Lactobacillus acidophilus 1 tab PO QDAY #0 02/08/17 10/18/19 albuterol sulfate [Proventil HFA] 1 puff INH Q6H PRN #0 02/08/17 10/18/19 aspirin 325 mg PO QDAY #0 02/08/17 10/18/19 gabapentin [Neurontin] 1,200 mg PO QPM #0 02/08/17 10/18/19 ibuprofen 400 mg PO Q6HP PRN #0 02/08/17 10/18/19 insulin aspart U-100 [Novolog unit SQ TIDAC #0 02/08/17 PenFill U-100 Insulin] levothyroxine [Synthroid] 175 u PO QDAY #0 02/08/17 10/18/19 losartan-hydrochlorothiazide 1 tab PO QDAY #0 02/08/17 10/18/19 [Hyzaar] nifedipine [Afeditab CR] 30 mg PO QDAY #0 02/08/17 10/18/19 rosuvastatin [Crestor] 10 mg PO Q DAY #0 02/08/17 10/18/19 venlafaxine 150 mg PO QDAY #0 02/08/17 10/18/19 Previous Rx's Medication Instructions Recorded Levemir U-100 Insulin 38 u SQ HS #10 ml 02/12/17 Allergies Allergy/AdvReac Type Severity Reaction Status Date / Time codeine [CODEINE] Allergy Unknown Verified 10/18/19 17:47 daptomycin Allergy Verified 10/18/19 17:47 ondansetron [From Zofran] AdvReac Vomiting Verified 10/18/19 17:47 Review of Systems Review of Systems ROS Unobtainable: Unobtainable due to medical condition Patient History Medical History Depression (Chronic) Diabetes mellitus, insulin-dependent (IDDM or type I) (Chronic) Diabetic neuropathy (Chronic) Factor V Leiden mutation (Chronic) Surgical History Status post hysterectomy (Resolved) Status post tonsillectomy (Resolved) Status post transmetatarsal amputation of left foot (Resolved) Exam Initial Vital Signs Initial Vital Signs: Vital Signs Temperature 97.9 F 10/18/19 17:32 Pulse Rate 85 10/18/19 17:32 Respiratory Rate 12 10/18/19 17:32 Blood Pressure 188/82 H 10/18/19 17:32 Pulse Oximetry 95 10/18/19 17:32 Gen.: Sedated on vent HEENT: Head is atraumatic, ET tube in place Neck: Right IJ in place no JVD Lungs: Clear bilaterally no wheezes rales or rhonchi Cardiac: Regular rate rhythm no murmur Abdomen: Soft no distention Extremities: No gross bony deformities no peripheral edema Neurologic: Sedated on vent Course Orders Ordered: ED Orders 10/18/19 17:24 CT chest abd pel w con Stat CT head/brain wo con Stat 10/18/19 18:08 Lactate (Lactic Acid) Stat 10/18/19 18:12 Urine Drug Screen, Rapid Stat 10/18/19 18:30 GI Panel (Film Array) Stat 10/18/19 18:35 Basic Metabolic Panel Stat Thyroid Stimulating Hormone Stat Fentanyl 1,000 mcg/ Dextrose 250 mls @ 11.498 mls/hr IV TITRATE MEREDITH; Protocol Last Admin: 10/18/19 18:01 Dose: 0.7 mcg/kg/hr, 11.498 mls/hr Documented by: LALITO Midazolam HCl 50 mg/ Dextrose 250 mls @ 6.57 mls/hr IV TITRATE MEREDITH; Protocol Last Admin: 10/18/19 18:02 Dose: 0.02 mg/kg/hr, 6.57 mls/hr Documented by: LALITO Discontinued Medications Midazolam HCl (Versed) 2 mg IV NOW ONE Stop: 10/18/19 17:24 Vital Signs Vital signs: Vital Signs - 8 hr 10/18/19 17:32 10/18/19 18:35 Temperature 97.9 F Pulse Rate 85 80 Respiratory Rate 12 12 Blood Pressure 188/82 H 178/79 H Pulse Oximetry 95 100 MDM - Altered Mental Status Lab Data Attestation: I reviewed the patient's lab results. Result diagrams: 10/18/19 18:35 Labs: Lab Results 10/18/19 10/18/19 10/18/19 Range/Units 18:08 18:12 18:35 Sodium 137 (137-145) mmol/L Potassium 3.7 (3.4-5.1) mmol/L Chloride 101 (98-107) mmol/L Carbon Dioxide 32 (22-32) mmol/L BUN 54 H (7-17) mg/dL Creatinine 1.78 H (0.52-1.04) mg/dL Estimated GFR 28.8 L (>60) mL/min BUN/Creatinine Ratio 30.3 H (6-22) Glucose 378 H (80-110) mg/dL Lactate 2.0 (0.7-2.1) mmol/L Calcium 8.6 (8.4-10.2) mg/dL U Opiates 300ng/mL cut Negative (Negative) Ur Oxycodone Screen Negative (Negative) Urine Methadone Screen Negative (Negative) Ur Barbiturates Screen Negative (Negative) U Tricyclic Antidepress Negative (Negative) Ur Phencyclidine Scrn Negative (Negative) Ur Amphetamines Screen Negative (Negative) U Methamphetamines Scrn Negative (Negative) Ur MDMA Scrn (Ecstasy) Negative (Negative) U Benzodiazepines Scrn Positive H (Negative) Urine Cocaine Screen Negative (Negative) U Marijuana (THC) Screen Positive H (Negative) Point of Care Testing Glucose POC [address] scan - head: Radiologist's Impression: PROCEDURE: CT HEAD/BRAIN WO CON INDICATIONS: confusion TECHNIQUE: Noncontrast 4.5 mm thick angled axial sections acquired from the foramen magnum to the vertex, with coronal and sagittal reformats. For radiation dose reduction, the following was used: automated exposure control, adjustment of mA and/or kV according to patient size. COMPARISON: None. FINDINGS: Image quality: There is streak artifact seen. CSF spaces: Basal cisterns are patent. No extra-axial fluid collections. The ventricles are symmetric in size and shape. Brain: No intracranial bleeds or masses. There is cerebral volume loss for age, with resultant ventricular and sulcal prominence. There are periventricular and deep white matter chronic small vessel ischemic changes. There is intracranial internal carotid artery atherosclerosis. Skull and face: Calvarium and visualized facial bones appear intact, without suspicious lesions. Sinuses: Visualized sinuses and mastoids are clear. This patient is intubated. IMPRESSION: Limited study demonstrating no significant intracranial abnormality. Dictated by: Gilberto Chang M.D. on 10/18/2019 at 17:12 Approved by: Gilberto Chang M.D. on 10/18/2019 at 17:14 CT scan - abdomen/pelvis: Radiologist's Impression: PROCEDURE: CT CHEST ABD PEL W CON INDICATIONS: elevated wbc TECHNIQUE: After the administration of intravenous contrast, 5 mm thick sections acquired from the lung apices to the symphysis. 5 mm coronal and sagittal reformats were performed, with additional 7 mm MIP reformats through the lungs. For radiation dose reduction, the following was used: automated exposure control, adjustment of mA and/or kV according to patient size. COMPARISON: [facility], CT, CT HEAD/BRAIN WO CON, 10/18/2019, 17:27. FINDINGS: Image quality: Excellent. CHEST: Lungs and pleura: No this patient is intubated, with the tip of the endotracheal tube seen 2.5 cm above the rodolfo. Mild enhancing dependent consolidation is seen, which is attributed to atelectasis. No pleural effusions or pneumothorax. Central and peripheral airways appear patent and normal in caliber. Mediastinum: Heart size is normal. No pericardial effusion. No mediastinal or hilar adenopathy by size criteria. Thoracic aorta and central pulmonary arteries are normal in size. No large or central pulmonary emboli can be seen. Esophagus is normal in caliber. The distal esophagus demonstrates thickened gutierrez. No hiatal hernia. Chest wall: There is a right-sided central line, with the tip within the inferior aspect of the superior vena cava. No axillary or supraclavicular adenopathy by size criteria. Thyroid gland is small in size. ABDOMEN: Solid organs: Liver is normal in size and enhancement. Incidental note is made of focal fatty infiltration adjacent to the falciform ligament, which is not regarded to be pathologic. Gallbladder wall is not thickened. Biliary system is non dilated. Pancreas enhances normally. Spleen is normal in size and enhancement. No adrenal nodules. Kidneys demonstrate normal size and enhancement, without hydronephrosis. Peritoneum and bowel: Generalized wall thickening is seen of the colon, although most prominently between the transverse colon and the sigmoid colon. Minimal surrounding inflammatory changes are seen. No dilated loops of small bowel are seen. No free air or significant free fluid can be seen. No loculated abscess is detected. Nodes and vessels: No retroperitoneal or mesenteric adenopathy by size criteria. Aorta and inferior vena cava are normal in size. Miscellaneous: No ventral hernias. PELVIS: Genitourinary: A Dennison catheter is seen. This patient is status post hysterectomy. No adnexal masses are seen. Miscellaneous: No inguinal adenopathy. Bilateral fat containing inguinal hernias are seen. Bones: No suspicious bony lesions. No vertebral body compression fractures. Mild grade 1 anterolisthesis is seen at L5-S1, with associated bilateral pars defects. Focal degenerative change is seen at this level. Milder degenerative changes are seen elsewhere. Mild levoconvex scoliotic curvature is noted. IMPRESSION: Generalized wall thickening is seen involving the distal colon. Please consider infectious and inflammatory causes. Ischemia is possible, yet considered to be much less likely. The tip of the endotracheal tube is seen 2.5 cm above the rodolfo. The tip of the right-sided central line is seen within the inferior aspect of the superior vena cava. Dependent atelectasis, without nico infiltrates. There is wall thickening seen within the distal esophagus. Please consider esophagitis. Incidental note is made of: Dennison catheter Hysterectomy Bilateral fat containing inguinal hernias Bilateral L5 pars defects, with associated grade 1 L5-S1 anterolisthesis Focal L5-S1 degenerative change Dictated by: Gilberto Chang M.D. on 10/18/2019 at 17:14 Approved by: Gilberto Chang M.D. on 10/18/2019 at 17:21 MDM Narrative Medical decision making narrative: Dr. Perez was made aware of patient's arrival he is in ED to see and evaluate patient himself request waiting for CT results before he accepts patient. He is updated on CT results and he happily accepts agrees with no insulin drip at this time. Patient's lactate improved to 2.0 at this time no need for insulin drip there is no anion gap she is not in DKA glucose is now 396. Repeat electrolytes and BMP are pending Discharge Plan Departure Patient Disposition: Admitted As Inpatient Clinical Impression: Acute metabolic encephalopathy Referrals: Reshma Lemus MD [Primary Care Provider] - Admit Date/Time: 10/18/19 18:57 Admit Provider: Misael Pagan
[2019-10-18] MEDS: fentaNYL 1,000 MCG in DEXTROSE 5% IN WATER 230 ML 11.498 ML IV (18:01)
[2019-10-18] MEDS: MIDAZOLAM 50 MG in DEXTROSE 5% IN WATER 240 ML 6.57 ML IV (18:02)
--- NOTE | 2019-10-18 18:14 | PC.NURSE ---
pt recived from ems intubated sedated with dipravan transported with nurse and resp to ct pt placed back in room on ekg monitor medicated as per mdo for sedation urine sample collected iv placed 20 in rac labs drawn
[2019-10-18 18:48] LABS: UR Morphine/Opiate cutoff 300 Negative (Negative); Ur Creatinine Normal (Normal); Ur Specific Gravity Normal (Normal); Urine Amphetamines Negative (Negative); Urine Barbiturates Negative (Negative); Urine Benzodiazepines Positive (Negative); Urine Cocaine Negative (Negative); Urine MDMA Negative (Negative); Urine Methadone Negative (Negative); Urine Methamphetamines Negative (Negative); Urine Oxycodone Negative (Negative); Urine Phencyclidine Negative (Negative); Urine Tetrahydrocannabinol Positive (Negative); Urine Tricyclic Antidepressant Negative (Negative); Urine pH Normal (Normal)
--- NOTE | 2019-10-18 19:02 | PC.NURSE ---
sbar to icu nurse resp contacted for transport of pt to icu pt current sedated tolorating well on vent vitals recorded on cardaic monitor
[2019-10-18 19:09] LABS: BUN Creatinine Ratio 30.3 (6-22); Blood Urea Nitrogen 54 mg/dL (7-17); Calcium 8.6 mg/dL (8.4-10.2); Carbon Dioxide 32 mmol/L (22-32); Chloride 101 mmol/L (98-107); Estimated Glomerular Filt Rate 28.8 mL/min (>60); Glucose 378 mg/dL (80-110); HEMOLYSIS < 15 (0-50); Potassium 3.7 mmol/L (3.4-5.1); Sodium 137 mmol/L (137-145)
[2019-10-18 19:40] LABS: Thyroid Stimulating Hormone 2.13 uIU/mL (0.47-4.68)
--- NOTE | 2019-10-18 19:45 | PC.NURSE ---
pt awoke from sedation during transport with asisst of icu nurses and md pt sedated at bedside as per mdo asissted with transfer to hospital bed placed on campus monitor left in care of icu nurse.
[2019-10-18 20:04] LABS: COVID19 -Nasal RAPID Negative (Negative)
--- NOTE | 2019-10-18 20:26 | PM.HP.1 ---
History of Present Illness History of Present Illness Date Patient Seen: 10/18/19 Time Patient Seen: 20:27 Chief complaint: Intubated, needs CT, from [facility] Narrative: Kemi Alberto is a 63-year-old female with past medical history of poorly controlled diabetes, hypertension, hyperlipidemia, peripheral vascular disease with prior right toe amputation who initially presented [place] [facility] [place] with altered mental status and combative behavior. EMS was reportedly called by the patient's son-in-law as per [facility] [place] documentation. Patient became combative, with poor venous access and had a central line placed and was intubated so that further imaging could be performed. However, the [facility] [place] scan was not working so the patient was transferred to [facility] so the imaging could be done. Initial labs done at [facility] [place] showed a respiratory alkalosis, mild leukocytosis with a white blood cell count of 23, and a glucose of 550. She was not in DKA but was started on insulin drip at [facility] [place] for transfer. She was placed on fentanyl and propofol for transfer, but was agitated and attempting to remove lines upon arrival to the ER. She was then switched to fentanyl and Versed. CT imaging was done which showed a negative head CT, and CT of her chest abdomen pelvis was fairly unremarkable except for some mild inflammatory changes of her distal esophagus as well as left colon. Given her peripheral vascular disease did discuss with general surgery who was not impressed with the level of inflammation in her colon did not think that this was likely ischemia. She initially had a lactate of [address] [facility] [place] which improved to 2.0 on repeat here. She also had a creatinine of 2.0 to be General that improved to 1.78 after initial fluid management. Urine drug screening was positive here for marijuana, and benzodiazepines although the patient was given Ativan at [facility] [place]. Patient History Medical History Depression (Chronic) Diabetes mellitus, insulin-dependent (IDDM or type I) (Chronic) Diabetic neuropathy (Chronic) Factor V Leiden mutation (Chronic) Surgical History Status post hysterectomy (Resolved) Status post tonsillectomy (Resolved) Status post transmetatarsal amputation of left foot (Resolved) Meds Home Medications and Allergies Home Medications Medication Instructions Recorded Confirmed Type Lactobacillus acidophilus 1 tab PO QDAY #0 02/08/17 10/18/19 History albuterol sulfate [Proventil HFA] 1 puff INH Q6H PRN #0 02/08/17 10/18/19 History aspirin 325 mg PO QDAY #0 02/08/17 10/18/19 History gabapentin [Neurontin] 1,200 mg PO QPM #0 02/08/17 10/18/19 History ibuprofen 400 mg PO Q6HP PRN #0 02/08/17 10/18/19 History insulin aspart U-100 [Novolog unit SQ TIDAC #0 02/08/17 History PenFill U-100 Insulin] levothyroxine [Synthroid] 175 u PO QDAY #0 02/08/17 10/18/19 History losartan-hydrochlorothiazide 1 tab PO QDAY #0 02/08/17 10/18/19 History [Hyzaar] nifedipine [Afeditab CR] 30 mg PO QDAY #0 02/08/17 10/18/19 History rosuvastatin [Crestor] 10 mg PO Q DAY #0 02/08/17 10/18/19 History venlafaxine 150 mg PO QDAY #0 02/08/17 10/18/19 History Levemir U-100 Insulin 38 u SQ HS #10 ml 02/12/17 10/18/19 Rx Allergies Allergy/AdvReac Type Severity Reaction Status Date / Time codeine [CODEINE] Allergy Unknown Verified 10/18/19 17:47 daptomycin Allergy Verified 10/18/19 17:47 ondansetron [From Zofran] AdvReac Vomiting Verified 10/18/19 17:47 Review of Systems Review of Systems ROS: Yes unobtainable due to endotracheal tube Exam Vital Signs (past 8 hours): - 10/18/19 17:32 10/18/19 18:35 10/18/19 19:03 Temperature 97.9 F Pulse Rate 85 80 80 Respiratory Rate 12 12 18 Blood Pressure 188/82 H 178/79 H 185/66 H Pulse Oximetry 95 100 98 10/18/19 19:59 Temperature Pulse Rate Respiratory Rate Blood Pressure Pulse Oximetry 95 Oxygen Delivery Method Mechanical Ventilation Narrative Exam Narrative: GENERAL APPEARANCE: chronicall ill appearing female, appears older than stated age, no acute distress, intubated and sedated. SKIN: Inspection of the skin reveals no rashes, ulcerations or petechiae. HEENT: Normocephalic atraumatic. ETT in place, mucous membranes appear dry. NECK: Supple and symmetric. There was no thyroid enlargement, and no tenderness, or masses were felt. CHEST: Normal AP diameter and normal contour without any kyphoscoliosis. LUNGS: Auscultation of the lungs revealed no wheezes, rhonchi, or rales. mechanical breath sounds. CARDIOVASCULAR: There was a regular rate and rhythm without any murmurs, gallops, rubs. Peripheral pulses were 2+ and symmetric. ABDOMEN: Soft and nondistended. No ascites was noted. MUSCULOSKELETAL: There was no tenderness or effusions noted. Muscle tone were normal with some wasting. EXTREMITIES: No cyanosis, clubbing or edema. There is a prior R foot amputation with well appearing incisional scar. scattered but well appearing lower extremity wounds. NEUROLOGIC: intubated and sedated. when on versed and undersedated picking at lines. Objective Labs Result Diagrams: 10/18/19 20:27 Labs: Laboratory Results - last 24 hr 10/18/19 10/18/19 10/18/19 18:08 18:12 18:35 Sodium 137 Potassium 3.7 Chloride 101 Carbon Dioxide 32 BUN 54 H Creatinine 1.78 H Estimated GFR 28.8 L BUN/Creatinine Ratio 30.3 H Glucose 378 H Lactate 2.0 Calcium 8.6 TSH U Opiates 300ng/mL cut Negative Ur Oxycodone Screen Negative Urine Methadone Screen Negative Ur Barbiturates Screen Negative U Tricyclic Antidepress Negative Ur Phencyclidine Scrn Negative Ur Amphetamines Screen Negative U Methamphetamines Scrn Negative Ur MDMA Scrn (Ecstasy) Negative U Benzodiazepines Scrn Positive H Urine Cocaine Screen Negative U Marijuana (THC) Screen Positive H COVID-19 PCR 10/18/19 10/18/19 18:35 18:45 Sodium Potassium Chloride Carbon Dioxide BUN Creatinine Estimated GFR BUN/Creatinine Ratio Glucose Lactate Calcium TSH 2.13 U Opiates 300ng/mL cut Ur Oxycodone Screen Urine Methadone Screen Ur Barbiturates Screen U Tricyclic Antidepress Ur Phencyclidine Scrn Ur Amphetamines Screen U Methamphetamines Scrn Ur MDMA Scrn (Ecstasy) U Benzodiazepines Scrn Urine Cocaine Screen U Marijuana (THC) Screen COVID-19 PCR Negative Assessment & Plan Assessment & Plan narrative: Kemi Alberto is a 63-year-old female with past medical history of poorly controlled diabetes, hypertension, hyperlipidemia, peripheral vascular disease with prior right toe amputation who initially presented [place] [facility] [place] with altered mental status and combative behavior. She was transferred here to the emergency room as there was no CT imaging available [place] [facility] [place]. CT imaging showed a negative head CT, and mild colitis but no overt source for her confusion at this time. 1. Toxic metabolic encephalopathy, acute, present on admission - keep intubated and sedated overnight until etiology can be determined. Differential is broad but includes infectious etiologies although there is no overt evidence of infection despite leukocytosis and mild distal colitis. Further includes ingestion (+marijuana on UDS or other substance), unknown EtOH history as well, or metabolic issue given possible HHS at [facility] with glucose of 550. Futher if uncontrolled HTN consider PRESS syndrome or CVA although unable to do a reliable neurological exam at this time and according to ER provider no focal deficits were noted. - obtain hepatic function testing - consider MRI depending on response to sedation trials tomorrowand neurological examination. - repeat blood gas after adequate sedation achieved -obtain blood cultures. - TSH 2. Acute kidney injury - likely seoncdary to pre-renal azotemia given presentation and possible HHS. No overt infectious signs other than mild colitis on CT imaging. - continue IVF at 125 cc per hour. 3. Type 2 diabetes, with hyperglycemia and possible HHS, present on admission - Patient reportedly on insulin pump therapy but removed this due to agitation. - Will start long acting at 15 units, q6hr sliding scale. 4. Colitis - unclear etiology at this time. No reports of diarrhea per ER providers. Will need to obtain collateral information from ? son in law when able. - will hold on IV antibiotics pending cultures, lab studies. - ordered GI panel. 5. HTN - patient appears to be on multiple agents for blood pressure and is profoundly hypertensive. - will give IV metoprolol as she appears to be on coreg as an outpatient. If no improvement consider cardene gtt. 6. HLD - continues crestor. 7. PVD - continue asa 8. hypothyroidism, continue levothyroxine. Code: full at this time given unclear prior wishes, unable to discuss surrogate decision maker. Dispo: Admitted to the ICU. I spent 35 minutes of critical care time in the management of this patient. COVID 19 testing negative
[2019-10-18 20:49] LABS: Hemoglobin A1C% w Est Avg Glu 9.3 % (4.0-6.0)
[2019-10-18 20:53] LABS: INR 1.1 (0.9-1.3); Prothrombin Time 12.8 SECONDS (10.1-12.7)
[2019-10-18 20:56] LABS: PTT Partial Thromboplastin Tim 29 SECONDS (26.4-36.2)
[2019-10-18 21:02] LABS: Alanine Aminotransferase 23 IU/L (<35); Albumin 3.2 g/dL (3.5-5.0); Albumin Globulin Ratio 1.3 (1.0-2.8); Alkaline Phosphatase 108 U/L (38-126); Aspartate Aminotransferase 39 IU/L (14-36); BUN Creatinine Ratio 30.7 (6-22); Bilirubin Total 0.5 mg/dL (0.2-1.3); Blood Urea Nitrogen 51 mg/dL (7-17); Calcium 8.1 mg/dL (8.4-10.2); Carbon Dioxide 29 mmol/L (22-32); Chloride 104 mmol/L (98-107); Estimated Glomerular Filt Rate 31.2 mL/min (>60); Globulin 2.4 g/dL (1.7-4.1); Glucose 367 mg/dL (80-110); HEMOLYSIS < 15 (0-50); Potassium 3.8 mmol/L (3.4-5.1); Sodium 138 mmol/L (137-145); Total Protein 5.6 g/dL (6.3-8.2)
[2019-10-18 21:03] LABS: Alanine Aminotransferase 23 IU/L (<35); Albumin 3.2 g/dL (3.5-5.0); Albumin Globulin Ratio 1.3 (1.0-2.8); Alkaline Phosphatase 106 U/L (38-126); Aspartate Aminotransferase 40 IU/L (14-36); Bilirubin Total 0.6 mg/dL (0.2-1.3); Bilirubin Unconjugated 0.3 mg/dL (0.0-1.1); Globulin 2.5 g/dL (1.7-4.1); HEMOLYSIS < 15 (0-50); Total Protein 5.7 g/dL (6.3-8.2)
[2019-10-18] MEDS: INSULIN ASPART 100 UNIT/ML INSULN PEN SUBCUT (21:21)
[2019-10-18] MEDS: HEPARIN 5,000 UNIT/ML VIAL 5000 UNIT SUBCUT (21:28)
[2019-10-18] MEDS: METOPROLOL TARTRATE 5 MG/5 ML INJ IV (21:30)
[2019-10-18] MEDS: propofoL 1,000 MG/100 ML VIAL 17.6 MG IV (21:36)
[2019-10-18] MEDS: INSULIN DETEMIR 100 UNIT/ML INSULN.PEN 15 UNIT SUBCUT (21:40)
[2019-10-18] MEDS: SODIUM CHLORIDE 0.9% 1,000 ML 125 ML IV (21:49)
--- NOTE | 2019-10-18 22:05 | DI.RAD.S_ITS ---
PROCEDURE: XR CHEST 1V INDICATIONS: og/ng tube placement TECHNIQUE: One view of the chest was acquired. COMPARISON: [facility], , CHEST FOR PICC PLACEMENT, 02/09/2017, 16:32. FINDINGS: Surgical changes and devices: The patient is intubated and the endotracheal tube is 4.4 cm above the rodolfo. There is a right central venous catheter, the tip of which is projected over the cavoatrial junction. An NG tube is present and is projected over the gastric fundus. Lungs and pleura: Lungs are clear. No pleural effusions or pneumothorax. Mediastinum: Mediastinal contours appear normal. Heart size is normal. Bones and chest wall: No suspicious bony lesions. Overlying soft tissues appear unremarkable. IMPRESSION: Tubes and lines as above. No acute cardiopulmonary findings. Dictated by: Kristina Topete M.D. on 10/19/2019 at 8:51 Approved by: Kristina Topete M.D. on 10/19/2019 at 8:51
--- NOTE | 2019-10-18 23:14 | PC.NURSE ---
191 pt arrived intubated to rm 230 per stretcher from ED restless and trying to pull at lines and tubes. Versed and fentanyl drips in progress to no effect. Propofol drip instituted at 50mcg/kg/min and versed dc'd. Placed on monitor, sinus rhythm noted rate 90. SBP elevated >200m MD notified and orders noted. Vent settings managed by RT, FiO2 30, rate 16 TV 400 +5 peep. Adjustments made as needed per respiratory. During skin assessment noted to have abrasion to her l ankle, R heel and R foot. Alevyn dressing applied to L Ankle and R heel. Pt arrived here with IO needle to R leg. Needle removed and pressure dressing applied. Pt has TLC to her RIJ infusing sedation and NS as ordered. OG tube placed and cxray done to confirm placement. Dennison to str drainage. Bilateral wrist restraints per protocol initiated.
[2019-10-19] VITALS (63 sets, daily range): BP systolic 95–206; BP diastolic 46–105; PULSE 53–110; RESP 6–49; TEMP 36.3–36.9; O2SAT 90–99
[2019-10-19 00:26] LABS: HCO3 ABG 30 mmol/L (22-26); PCO2 ABG 45.6 mmHg (35-45); PO2 ABG 67 mmHg (80-100); TCO2 ABG 31 mmol/L (21-31); pH ABG 7.42 (7.35-7.45)
[2019-10-19 00:27] LABS: Fractionated Inspired Oxygen 50; Oxygen Saturation ABG 93 % (95-100)
[2019-10-19] MEDS: propofoL 1,000 MG/100 ML VIAL 17.6 MG IV (00:41)
[2019-10-19 02:05] LABS: Troponin I 0.216 ng/mL (0.01-0.034)
[2019-10-19] MEDS: INSULIN ASPART 100 UNIT/ML INSULN PEN SUBCUT ×3 (02:17→14:47)
--- NOTE | 2019-10-19 03:06 | PC.NURSE ---
Notified Galileo PERSAUD of low urine output from basilio catheter. 75cc clear yellow urine since start of shift. Bladder scan showing 0ml. Increased IVF to 150ml/hr VO [employer]o PERSAUD
[2019-10-19 04:49] LABS: Add Manual Diff / Slide Review NO; Basophils Absolute Auto 100 /uL (0-100); Basophils Percent Auto 0.4 % (0-2); Eosinophils Absolute Auto 0 /uL (0-450); Hematocrit 29.2 % (36-46); Hemoglobin 9.5 g/dL (12.0-16.0); Lymphocytes Absolute Auto 1600 /uL (1100-4500); Lymphocytes Percent Auto 9.8 % (25-40); Mean Corpuscular HGB Conc 32.7 % (30-36); Mean Corpuscular Hemoglobin 29.9 PG (26-34); Mean Corpuscular Volume 91.5 fL (80-100); Monocytes Absolute Auto 1400 /uL (0-900); Monocytes Percent Auto 9.1 % (3-14); Neutrophils Absolute Auto 12800 /uL (1500-7000); Neutrophils Percent Auto 80.7 % (50-75); Platelet Count 230 X10^3/uL (150-400); Red Blood Cell Count 3.19 X10^6/uL (4.0-5.2); Red Cell Distribution Width 14.3 % (11.6-14.8); White Blood Cell Count 15.9 X10^3/uL (4.5-11.0)
[2019-10-19 05:00] LABS: Alanine Aminotransferase 19 IU/L (<35); Albumin 2.6 g/dL (3.5-5.0); Albumin Globulin Ratio 1.1 (1.0-2.8); Alkaline Phosphatase 77 U/L (38-126); Aspartate Aminotransferase 27 IU/L (14-36); BUN Creatinine Ratio 23.6 (6-22); Bilirubin Total 0.3 mg/dL (0.2-1.3); Bilirubin Unconjugated 0.1 mg/dL (0.0-1.1); Blood Urea Nitrogen 57 mg/dL (7-17); Calcium 7.9 mg/dL (8.4-10.2); Carbon Dioxide 31 mmol/L (22-32); Chloride 105 mmol/L (98-107); Estimated Glomerular Filt Rate 20.2 mL/min (>60); Globulin 2.4 g/dL (1.7-4.1); Glucose 245 mg/dL (80-110); HEMOLYSIS < 15 (0-50); Magnesium 1.9 mg/dL (1.6-2.3); Potassium 3.6 mmol/L (3.4-5.1); Sodium 139 mmol/L (137-145)
[2019-10-19 05:36] LABS: TSH w/ Reflex to FT4 1.52 uIU/mL (0.47-4.68)
--- NOTE | 2019-10-19 06:27 | PC.NURSE ---
Pt intubated and sedated. Vent settings at 5 peep, 50% oxygen, 350 TV, 10 RR. Pt tolerating well. Propofol titrated down throughout the night. Pt became agitated and thrashing about when being suctioned, increased propofol back upto 40mcg/kr/min and patient now resting comfortably. WCTM. Pt continues to have low urine output out of basilio. Basilio placement checked. Notified provider Vivi PERSAUD of urine output and morning renal lab levels. No new orders received. OG tube in place with int suction draining light brown/yellow fluids. Oral care done q 2 hours. Turning pt q 2 hours. Bed alarm set.
[2019-10-19 07:48] LABS: HCO3 ABG 29 mmol/L (22-26); PCO2 ABG 47.2 mmHg (35-45); PO2 ABG 76 mmHg (80-100)
[2019-10-19 07:49] LABS: Oxygen Saturation ABG 95 % (95-100); TCO2 ABG 31 mmol/L (21-31)
[2019-10-19] MEDS: fentaNYL 1,000 MCG in DEXTROSE 5% IN WATER 230 ML 32.85 ML IV ×2 (09:24→14:48)
[2019-10-19] MEDS: HEPARIN 5,000 UNIT/ML VIAL 5000 UNIT SUBCUT ×2 (10:29→20:21)
[2019-10-19] MEDS: SODIUM CHLORIDE 0.9% 1,000 ML 75 ML IV ×2 (13:00→17:34)
--- NOTE | 2019-10-19 14:16 | PC.NURSE ---
AM shift Sedation trial started at 1235, Pt did not tolerate well. Fent gtt turned off, and Propofol halved to 25 mcg/kg/min Unable to follow instruction, unable to do simple commands, trial for 20 minutes. Mentation remains curiously altered with no sedation, turned back on. HTN worsening this shift, Dr Pagan made aware and will reorder home coreg.
--- NOTE | 2019-10-19 14:26 | PC.NURSE ---
Addendum entered by Celia Brice R.N. 10/19/19 15:23: Note Dose weight for titration is 55.2kg, not previous weight in chart. Reviewed with pharmacy and dr llanos. Original Note: am shift Pt is intubated, sedated. IJ to Right side triple lumen. NS infusing, Fentanyl @ 2mcg/kg/min Propofol @ 50mg/kg/min, Pt remains lightly sedated, opens eyes to voice or touch. Unable to follow commands. Dennison patent. Urine output low on previous shift. ETT @ 23 cm at the teeth. Turning pt side to side to offload pressure. Plan for sedation vacation later this shift. at bedside, updated on POC.
[2019-10-19] MEDS: propofoL 1,000 MG/100 ML VIAL 14.55 MG IV ×2 (14:33→16:54)
[2019-10-19] MEDS: carvediloL 6.25 MG TABLET PO ×2 (14:33→20:20)
--- NOTE | 2019-10-19 15:15 | P.PN_ITS ---
Subjective Subjective Date Patient Seen: 10/19/19 Time Patient Seen: 15:17 Interval history: rene Alberto is a 63-year-old female with past medical history of poorly controlled diabetes, hypertension, hyperlipidemia, peripheral vascular disease with prior right toe amputation who initially presented to the [facility] emergency room with altered mental status and combative behavior. She ultimately needed to be sedated and intubated at the [facility] Emergency Room. She was transferred here to the lack of availability of CT imaging. She was admitted for a toxic metabolic encephalopathy of unknown etiology. Patient was hypertensive overnight, but responded well to IV dose of a beta-neal which she usually takes at home. She is again hypertensive today but will restart Coreg through an OG tube. Sedation vacations were attempted however the patient became very agitated and pulling at lines. Patient's was at bedside this morning who told further history of the patient being somewhat nonresponsive for her [id number], who ended up calling him. He told his [id number] to call the ambulance. She was not noted to have any focal deficits, speech issues, and did not complain of numbness. Prior to this she was having nausea, vomiting, and diarrhea although this has not been present here. He related that the patient has a paranoid a a of hospitals, believing and conspiracy theories about COVID-19, and the patient is likely fearful that she will never leave the hospital. Exam Vital Signs (past 8 hours): - 10/19/19 08:00 10/19/19 11:00 10/19/19 12:00 Temperature 97.8 F Pulse Rate 54 L 59 L Respiratory Rate 10 L 10 L Blood Pressure 109/54 L 160/93 H Pulse Oximetry 95 99 93 10/19/19 12:28 10/19/19 12:30 10/19/19 14:00 Temperature 97.8 F Pulse Rate 66 66 75 Respiratory Rate 18 26 H 13 Blood Pressure 152/67 H Pulse Oximetry 94 95 92 10/19/19 14:01 10/19/19 14:28 10/19/19 14:30 Temperature 97.8 F Pulse Rate 77 70 71 Respiratory Rate 11 L 15 13 Blood Pressure 206/76 H 170/103 H 170/105 H Pulse Oximetry 92 92 92 10/19/19 14:33 Temperature Pulse Rate 74 Respiratory Rate Blood Pressure 170/105 H Pulse Oximetry Fraction of Inspired Oxygen 37 Oxygen Delivery Method Mechanical Ventilation Oxygen Flow Rate 40 Narrative Exam Narrative: GENERAL APPEARANCE: chronicall ill appearing female, appears older than stated age, no acute distress, intubated and sedated. SKIN: Inspection of the skin reveals no rashes, ulcerations or petechiae. HEENT: Normocephalic atraumatic. ETT in place, mucous membranes appear dry. NECK: Supple and symmetric. There was no thyroid enlargement, and no tenderness, or masses were felt. CHEST: Normal AP diameter and normal contour without any kyphoscoliosis. LUNGS: Auscultation of the lungs revealed no wheezes, rhonchi, or rales. mechanical breath sounds. CARDIOVASCULAR: There was a regular rate and rhythm without any murmurs, g allops, rubs. Peripheral pulses were 2+ and symmetric. ABDOMEN: Soft and nondistended. No ascites was noted. MUSCULOSKELETAL: There was no tenderness or effusions noted. Muscle tone were normal with some wasting. EXTREMITIES: No cyanosis, clubbing or edema. There is a prior R foot amputation with well appearing incisional scar. scattered but well appearing lower extremity wounds. NEUROLOGIC: intubated and sedated. when on versed and undersedated picking at lines. Objective Labs Result Diagrams: 10/19/19 04:46 10/19/19 04:46 Labs: Laboratory Results - last 24 hr 10/18/19 10/18/19 10/18/19 18:08 18:12 18:35 WBC RBC Hgb Hct MCV MCH MCHC RDW Plt Count Neut % (Auto) Lymph % (Auto) [place] % (Auto) Eos % (Auto) Baso % (Auto) Neut # (Auto) Lymph # (Auto) [place] # (Auto) Eos # (Auto) Baso # (Auto) PT INR APTT ABG pH ABG pCO2 ABG pO2 ABG HCO3 ABG Total CO2 ABG O2 Saturation ABG Base Excess FiO2 Sodium 137 Potassium 3.7 Chloride 101 Carbon Dioxide 32 BUN 54 H Creatinine 1.78 H Estimated GFR 28.8 L BUN/Creatinine Ratio 30.3 H Glucose 378 H Hemoglobin A1c Lactate 2.0 Calcium 8.6 Magnesium Total Bilirubin Conjugated Bilirubin Unconjugated Bilirubin AST ALT Alkaline Phosphatase Troponin I Total Protein Albumin Globulin Albumin/Globulin Ratio TSH Nasal Screen MRSA (PCR) U Opiates 300ng/mL cut Negative Ur Oxycodone Screen Negative Urine Methadone Screen Negative Ur Barbiturates Screen Negative U Tricyclic Antidepress Negative Ur Phencyclidine Scrn Negative Ur Amphetamines Screen Negative U Methamphetamines Scrn Negative Ur MDMA Scrn (Ecstasy) Negative U Benzodiazepines Scrn Positive H Urine Cocaine Screen Negative U Marijuana (THC) Screen Positive H COVID-19 PCR 10/18/19 10/18/19 10/18/19 18:35 18:45 20:27 WBC RBC Hgb Hct MCV MCH MCHC RDW Plt Count Neut % (Auto) Lymph % (Auto) [place] % (Auto) Eos % (Auto) Baso % (Auto) Neut # (Auto) Lymph # (Auto) [place] # (Auto) Eos # (Auto) Baso # (Auto) PT INR APTT ABG pH ABG pCO2 ABG pO2 ABG HCO3 ABG Total CO2 ABG O2 Saturation ABG Base Excess FiO2 Sodium Potassium Chloride Carbon Dioxide BUN Creatinine Estimated GFR BUN/Creatinine Ratio Glucose Hemoglobin A1c Lactate Calcium Magnesium Total Bilirubin Conjugated Bilirubin Unconjugated Bilirubin AST ALT Alkaline Phosphatase Troponin I 0.180 H* Total Protein Albumin Globulin Albumin/Globulin Ratio TSH 2.13 Nasal Screen MRSA (PCR) U Opiates 300ng/mL cut Ur Oxycodone Screen Urine Methadone Screen Ur Barbiturates Screen U Tricyclic Antidepress Ur Phencyclidine Scrn Ur Amphetamines Screen U Methamphetamines Scrn Ur MDMA Scrn (Ecstasy) U Benzodiazepines Scrn Urine Cocaine Screen U Marijuana (THC) Screen COVID-19 PCR Negative 10/18/19 10/18/19 10/18/19 20:27 20:27 20:27 WBC RBC Hgb Hct MCV MCH MCHC RDW Plt Count Neut % (Auto) Lymph % (Auto) [place] % (Auto) Eos % (Auto) Baso % (Auto) Neut # (Auto) Lymph # (Auto) [place] # (Auto) Eos # (Auto) Baso # (Auto) PT 12.8 H INR 1.1 APTT 29 ABG pH ABG pCO2 ABG pO2 ABG HCO3 ABG Total CO2 ABG O2 Saturation ABG Base Excess FiO2 Sodium 138 Potassium 3.8 Chloride 104 Carbon Dioxide 29 BUN 51 H Creatinine 1.66 H Estimated GFR 31.2 L BUN/Creatinine Ratio 30.7 H Glucose 367 H Hemoglobin A1c 9.3 H Lactate Calcium 8.1 L Magnesium Total Bilirubin 0.5 Conjugated Bilirubin Unconjugated Bilirubin AST 39 H ALT 23 Alkaline Phosphatase 108 Troponin I Total Protein 5.6 L Albumin 3.2 L Globulin 2.4 Albumin/Globulin Ratio 1.3 TSH Nasal Screen MRSA (PCR) U Opiates 300ng/mL cut Ur Oxycodone Screen Urine Methadone Screen Ur Barbiturates Screen U Tricyclic Antidepress Ur Phencyclidine Scrn Ur Amphetamines Screen U Methamphetamines Scrn Ur MDMA Scrn (Ecstasy) U Benzodiazepines Scrn Urine Cocaine Screen U Marijuana (THC) Screen COVID-19 PCR 10/18/19 10/19/19 10/19/19 20:27 00:17 01:10 WBC RBC Hgb Hct MCV MCH MCHC RDW Plt Count Neut % (Auto) Lymph % (Auto) [place] % (Auto) Eos % (Auto) Baso % (Auto) Neut # (Auto) Lymph # (Auto) [place] # (Auto) Eos # (Auto) Baso # (Auto) PT INR APTT ABG pH 7.42 ABG pCO2 45.6 H ABG pO2 67 L ABG HCO3 30 H ABG Total CO2 31 ABG O2 Saturation 93 L ABG Base Excess 5.0 H FiO2 50 Sodium Potassium Chloride Carbon Dioxide BUN Creatinine Estimated GFR BUN/Creatinine Ratio Glucose Hemoglobin A1c Lactate Calcium Magnesium Total Bilirubin 0.6 Conjugated Bilirubin 0.0 Unconjugated Bilirubin 0.3 AST 40 H ALT 23 Alkaline Phosphatase 106 Troponin I 0.216 H* Total Protein 5.7 L Albumin 3.2 L Globulin 2.5 Albumin/Globulin Ratio 1.3 TSH Nasal Screen MRSA (PCR) U Opiates 300ng/mL cut Ur Oxycodone Screen Urine Methadone Screen Ur Barbiturates Screen U Tricyclic Antidepress Ur Phencyclidine Scrn Ur Amphetamines Screen U Methamphetamines Scrn Ur MDMA Scrn (Ecstasy) U Benzodiazepines Scrn Urine Cocaine Screen U Marijuana (THC) Screen COVID-19 PCR 10/19/19 10/19/19 10/19/19 04:17 04:46 04:46 WBC 15.9 H RBC 3.19 L Hgb 9.5 L Hct 29.2 L MCV 91.5 MCH 29.9 MCHC 32.7 RDW 14.3 Plt Count 230 Neut % (Auto) 80.7 H Lymph % (Auto) 9.8 L [place] % (Auto) 9.1 Eos % (Auto) 0.0 L Baso % (Auto) 0.4 Neut # (Auto) 95507 H Lymph # (Auto) 1600 [place] # (Auto) 1400 H Eos # (Auto) 0 Baso # (Auto) 100 PT INR APTT ABG pH ABG pCO2 ABG pO2 ABG HCO3 ABG Total CO2 ABG O2 Saturation ABG Base Excess FiO2 Sodium 139 Potassium 3.6 Chloride 105 Carbon Dioxide 31 BUN 57 H Creatinine 2.42 H Estimated GFR 20.2 L BUN/Creatinine Ratio 23.6 H Glucose 245 H D Hemoglobin A1c Lactate Calcium 7.9 L Magnesium 1.9 Total Bilirubin 0.3 Conjugated Bilirubin 0.0 Unconjugated Bilirubin 0.1 AST 27 ALT 19 Alkaline Phosphatase 77 Troponin I Total Protein 5.0 L Albumin 2.6 L Globulin 2.4 Albumin/Globulin Ratio 1.1 TSH Nasal Screen MRSA (PCR) Negative for mrsa U Opiates 300ng/mL cut Ur Oxycodone Screen Urine Methadone Screen Ur Barbiturates Screen U Tricyclic Antidepress Ur Phencyclidine Scrn Ur Amphetamines Screen U Methamphetamines Scrn Ur MDMA Scrn (Ecstasy) U Benzodiazepines Scrn Urine Cocaine Screen U Marijuana (THC) Screen COVID-19 PCR 10/19/19 10/19/19 10/19/19 04:46 07:30 07:34 WBC RBC Hgb Hct MCV MCH MCHC RDW Plt Count Neut % (Auto) Lymph % (Auto) [place] % (Auto) Eos % (Auto) Baso % (Auto) Neut # (Auto) Lymph # (Auto) [place] # (Auto) Eos # (Auto) Baso # (Auto) PT INR APTT ABG pH 7.40 ABG pCO2 47.2 H ABG pO2 76 L ABG HCO3 29 H ABG Total CO2 31 ABG O2 Saturation 95 ABG Base Excess 4.0 H FiO2 0.40 Sodium Potassium Chloride Carbon Dioxide BUN Creatinine Estimated GFR BUN/Creatinine Ratio Glucose Hemoglobin A1c Lactate Calcium Magnesium Total Bilirubin Conjugated Bilirubin Unconjugated Bilirubin AST ALT Alkaline Phosphatase Troponin I 0.190 H* Total Protein Albumin Globulin Albumin/Globulin Ratio TSH 1.52 Nasal Screen MRSA (PCR) U Opiates 300ng/mL cut Ur Oxycodone Screen Urine Methadone Screen Ur Barbiturates Screen U Tricyclic Antidepress Ur Phencyclidine Scrn Ur Amphetamines Screen U Methamphetamines Scrn Ur MDMA Scrn (Ecstasy) U Benzodiazepines Scrn Urine Cocaine Screen U Marijuana (THC) Screen COVID-19 PCR Assessment & Plan Assessment & Plan narrative: Kemi Alberto is a 63-year-old female with past medical history of poorly controlled diabetes, hypertension, hyperlipidemia, peripheral vascular disease with prior right toe amputation who initially presented to the [facility] emergency room with altered mental status and combative behavior. She was transferred here to the emergency room as there was no CT imaging available at [facility]. CT imaging showed a negative head CT, and mild colitis but no overt source for her confusion at this time. 1. Toxic metabolic encephalopathy, acute, present on admission - remains intubated and sedated. Differential is broad but includes infectious etiologies although there is no overt evidence of infection despite leukocytosis and mild distal colitis. Leukocytosis has improved without antibiotics to this point. Further differential includes ingestion (+marijuana on UDS or other substance), unknown EtOH history as well so this may represent withdrawal, or metabolic issue given possible HHS at [facility] with glucose of 550. Futher if uncontrolled HTN consider PRESS syndrome, hypertensive encephalopathy, or CVA although unable to do a reliable neurological exam at this time and according to ER provider and no focal deficits were noted. No fever or nuchal rigidity. CT head negative for abnormal ventricular size. - consider MRI depending on response to continued sedation trials. Patient agitated today but also hold paranoia about hospitals per . -blood cultures without growth, no evidence of diarrhea while admitted. - TSH unremarkable at 1.52 2. Acute kidney injury, present on admission. - likely seoncdary to pre-renal azotemia given presentation and possible HHS. No overt infectious signs other than mild colitis on CT imaging. - decrease IVF slightly to 75 today, Creatinine actually worsened this AM to 2.42. May be related to overt hypertension yesterday with BP in the 200s. 3. Type 2 diabetes, with hyperglycemia and possible HHS, present on admission - Patient takes long acting insulin at home, on a continuous glucose monitor at home which reports was alarming a lot prior to this episode, he reports frequent lows and highs. - Will continue long acting at 15 units, q6hr sliding scale, sugars in the 200s today. - A1c at 9.3%. 4. Colitis - unclear etiology at this time. No reports of diarrhea per ER providers. did report recent nausea/vomiting and diarrhea consistent with a pos sible viral illness. - will hold on IV antibiotics as no diarrhea here. - ordered GI panel, not sent at this time due to lack of stools. 5. Hypertensive emergency - patient appears to be on multiple agents for blood pressure and was profoundly hypertensive on admission. May have had encephalopathy due to hypertension as discussed above. troponin did elevate as high as 0.216 but then downtrended. Further end orgna damange includes kidney function as noted above with Creatinine rising today to 2.42. - continue coreg 6.25 mg home dosing. Will add additional agents. IF difficult to control further or seemingly intermittently elevated, consider pheo workup although patient is not profoundly diaphoretic or sweaty and does not have tachycardia when she is hypertensive. 6. HLD - continues crestor. 7. PVD - continue asa 8. hypothyroidism, continue levothyroxine. 9. Code: full at this time given unclear prior wishes, unable to discuss surrogate decision maker however at bedside. Dispo: Remains ICU. I spent 35 minutes of critical care time in the management of this patient. COVID 19 testing negative Quality VTE Deep Vein Thrombosis/Pulmonary Embolism Present on Admission: No
--- NOTE | 2019-10-19 15:35 | CM.DANOTE ---
DCP/Brief Assessment: Reviewed chart. Patient is a 61yr old female admitted to [facility] from [facility], intubated in need of CT Scan. PCP listed is eRshma Lemus. Primary payor is 1)Medicare 2) for Life. Patient currently intubated and no family at bedside. Patient's d/c planning needs unclear at this time. P: CM team to follow closely. CLARENCE Francisco Discharge Planning/Care Management CM Discharge Assessment Start: 10/19/19 15:32 Freq: Status: Active Protocol: Document 10/19/19 15:32 KJS (Rec: 10/19/19 15:35 [id number]) Discharge Planning Assessment Assigned Chipper Operator CLARENCE Francisco Contact Information Velasquez Alberto (spouse) ph# [phone] Advance Directives? Yes History Provided By Medical Record Prior Living Arrangements House Household Members spouse Comment Unknown at this time. Patient on vent and transferred from [facility]. Is patient alert and oriented? No Caregiver for Another No Comment Unknown at this time. Review Status In Process Next Review Type Continued Stay Review
[2019-10-19] MEDS: diazePAM 10 MG/2 ML SYRINGE 5 MG IV ×2 (15:49→21:19)
[2019-10-19] MEDS: PANTOPRAZOLE 40 MG VIAL IV (16:01)
[2019-10-19] MEDS: SODIUM CHLORIDE 0.9% FLUSH 10 ML IV (16:03)
[2019-10-19] MEDS: GABAPENTIN 300 MG CAPSULE 1200 MG PO (16:14)
[2019-10-19] MEDS: ROSUVASTATIN 10 MG TABLET PO (20:21)
[2019-10-19] MEDS: INSULIN DETEMIR 100 UNIT/ML INSULN.PEN 15 UNIT SUBCUT (20:27)
[2019-10-19] MEDS: propofoL 1,000 MG/100 ML VIAL 8.73 MG IV (23:58)
[2019-10-20] VITALS (51 sets, daily range): BP systolic 90–192; BP diastolic 31–131; PULSE 46–81; RESP 10–22; TEMP 36.3–36.8; O2SAT 87–100
[2019-10-20] MEDS: diazePAM 10 MG/2 ML SYRINGE 5 MG IV ×3 (01:30→10:46)
[2019-10-20] MEDS: fentaNYL 1,000 MCG in DEXTROSE 5% IN WATER 230 ML 16.425 ML IV (04:47)
[2019-10-20 05:40] LABS: Add Manual Diff / Slide Review NO; Basophils Absolute Auto 100 /uL (0-100); Basophils Percent Auto 0.8 % (0-2); Eosinophils Absolute Auto 300 /uL (0-450); Hematocrit 29.2 % (36-46); Hemoglobin 9.4 g/dL (12.0-16.0); Lymphocytes Absolute Auto 2400 /uL (1100-4500); Lymphocytes Percent Auto 17.3 % (25-40); Mean Corpuscular HGB Conc 32.3 % (30-36); Mean Corpuscular Hemoglobin 29.7 PG (26-34); Monocytes Absolute Auto 1400 /uL (0-900); Monocytes Percent Auto 9.9 % (3-14); Neutrophils Absolute Auto 9700 /uL (1500-7000); Platelet Count 202 X10^3/uL (150-400); Red Blood Cell Count 3.18 X10^6/uL (4.0-5.2); Red Cell Distribution Width 14.1 % (11.6-14.8); White Blood Cell Count 13.9 X10^3/uL (4.5-11.0)
[2019-10-20 05:56] LABS: Alanine Aminotransferase 18 IU/L (<35); Albumin 2.6 g/dL (3.5-5.0); Alkaline Phosphatase 88 U/L (38-126); Aspartate Aminotransferase 24 IU/L (14-36); BUN Creatinine Ratio 20.8 (6-22); Bilirubin Total 0.4 mg/dL (0.2-1.3); Bilirubin Unconjugated 0.2 mg/dL (0.0-1.1); Blood Urea Nitrogen 58 mg/dL (7-17); Calcium 7.6 mg/dL (8.4-10.2); Carbon Dioxide 27 mmol/L (22-32); Chloride 108 mmol/L (98-107); Estimated Glomerular Filt Rate 17.1 mL/min (>60); Globulin 2.5 g/dL (1.7-4.1); Glucose 128 mg/dL (80-110); HEMOLYSIS < 15 (0-50); Magnesium 1.7 mg/dL (1.6-2.3); Potassium 3.2 mmol/L (3.4-5.1); Sodium 139 mmol/L (137-145); Total Protein 5.1 g/dL (6.3-8.2)
[2019-10-20] MEDS: propofoL 1,000 MG/100 ML VIAL 11.64 MG IV (06:49)
[2019-10-20] MEDS: SODIUM CHLORIDE 0.9% 1,000 ML 75 ML IV ×2 (06:50→20:12)
[2019-10-20] MEDS: LEVOTHYROXINE 75 MCG TABLET PO (06:52)
--- NOTE | 2019-10-20 07:29 | PC.NURSE ---
Hotel Room Attendant Note-Patient remains on ventilator, FIO2 .40 PEEP 5 TV 450 RR 10, SpO2 >94% LS inspiratory wheezes on R, rhonchi/wheeze on L. Sedated with propofol and Fentanyl gtts, IVP diazepam given for severe episodes of agitation, becomes very agitated with thrashing and attempting to pull out lines and tubes, does not follow any directions. Soft wrist restraints on. 200ml bile fluid out of OGT, 200ml clear yellow UOP in [place].
--- NOTE | 2019-10-20 08:36 | PC.NURSE ---
pts spouse called and added some medication bottles that he found at home that potentially weren't accounted for - added these to home rx list - they included duloxetine/carvedilol
[2019-10-20] MEDS: PANTOPRAZOLE 40 MG VIAL IV (10:47)
[2019-10-20] MEDS: INSULIN ASPART 100 UNIT/ML INSULN PEN SUBCUT ×2 (10:47→15:04)
[2019-10-20] MEDS: propofoL 1,000 MG/100 ML VIAL 16.005 MG IV ×2 (10:48→16:26)
--- NOTE | 2019-10-20 10:59 | DI.US.S_ITS ---
PROCEDURE: US RENAL COMPLETE INDICATIONS: AMARILYS TECHNIQUE: Real-time scanning was performed of the kidneys and bladder, with image documentation. COMPARISON: [facility], CT, CT CHEST ABD PEL W CON, 10/18/2019, 17:27. FINDINGS: Kidneys: Kidneys are normal in size. Both kidneys are mildly echogenic. Right kidney measures 11.8 cm long; left kidney measures 12.7 cm long. Right renal cortical thickness is 1.1 cm; left renal cortical thickness is 1.3 cm. Renal cortical echotexture is normal. No hydronephrosis or nephrolithiasis. No suspicious solid mass lesions. A small amount of fluid can be seen adjacent to the right kidney. Bladder: Decompressed by a Dennison catheter. Miscellaneous: No free pelvic fluid. IMPRESSION: No hydronephrosis is seen. The kidneys are mildly echogenic, which is suggestive of medical renal disease. A small amount of right perinephric fluid can be seen. A Denn[place] catheter decompresses the bladder. Dictated by: Gilberto Chang M.D. on 10/20/2019 at 11:34 Approved by: Gilberto Chang M.D. on 10/20/2019 at 11:38
--- NOTE | 2019-10-20 13:18 | PC.NURSE ---
PT SEDATED AND VENTILATED FOR DAY 2- LUNGS INITIALLY FAIRLY CLEAR/DIMINISHED AND DAY WENT ON- MUCH MORE JUNKY AND RHONCHOROUS SOUNDING BILATERALLY- INCREASED ETT SECRETIONS WITH POSITIONING OF PT- UA SENT, LP COMPLETED BY DR. RAGLAND AT BEDSIDE- CLEAR FLUID SENT TO LAB
--- NOTE | 2019-10-20 13:24 | PM.PROC.1 ---
Procedures Date/Time Date of procedure: 10/20/19 Time of procedure: 12:40 Lumbar Puncture Pre-procedure diagnosis: Altered mental status Post-procedure diagnosis: same Time Out Performed: Yes Patient Position: left lateral decubitus Skin Prep: Povidone-Iodine 1% Local anesthetic used: Lidocaine 1% Sedation: other (Patient intubated, on fentanyl and propofol.) Needle size: 20 ga Needle length: 3.5 Interspace: L3-L4 Number of attempts: 1 Opening pressure: # cm H2O (23) Fluid collected (mL): 12 Fluid description: clear Complications: No Patient tolerance: Patient tolerated the procedure well. Comments: My hands were cleaned immediately prior to the procedure. Patient was already intubated at the time of procedure, she was placed into the left lateral decubitus position with knees flexed as high as possible. L4 spinous process was found and her L3-L4 interspace was marked. Patient was then prepped in the usual sterile fashion and 3 cc of 1% lidocaine was injected for local anesthesia. A 20-gauge 3.5-inch spinal needle was placed in the L3-L4 lumbar interspace. On the 1st attempt, clear colored cerebral spinal fluid was obtained. The opening pressure was 23 cm H20. A total of 12 mL of CSF was collected into 4 tubes. These were sent for the usual tests, including 1 tube to be held for further analysis if needed. A sterile bandaid was placed over the puncture site. The patient had no immediate complications and tolerated the procedure well. Estimated blood loss was 0.
[2019-10-20 13:28] LABS: Total Protein CSF 63 mg/dL (12-60)
--- NOTE | 2019-10-20 13:30 | P.PN_ITS ---
Subjective Subjective Date Patient Seen: 10/20/19 Time Patient Seen: 13:30 Interval history: Kemi Alberto is a 63-year-old female with past medical history of poorly controlled diabetes, hypertension, hyperlipidemia, peripheral vascular disease with prior right toe amputation who initially presented to the [facility] emergency room with altered mental status and combative behavior. She ultimately needed to be sedated and intubated at the [facility] Emergency Room. She was transferred here to the lack of availability of CT imaging. She was admitted for a toxic metabolic encephalopathy of unknown etiology. Sedation trial was again attempted but patient became agitated again and pulled at [place] in's and was not following commands. Consent was then obtained for lumbar puncture from the patient's . Lumbar puncture showed a normal glucose 86, mildly elevated protein at 63, but 1 white blood cell and 1 red blood cell and the color was clear. Meningitis panel was negative. Her kidney function continues to worsen and a kidney ultrasound was performed which showed some small amount of fluid near her right kidney, but was otherwise unremarkable. Exam Vital Signs (past 8 hours): - 10/20/19 07:00 10/20/19 07:25 10/20/19 09:00 Temperature 97.8 F Pulse Rate 56 L 59 L 51 L Respiratory Rate 10 L 10 L 11 L Blood Pressure 174/74 H 180/106 H 103/49 L Pulse Oximetry 97 97 98 10/20/19 10:55 10/20/19 11:00 10/20/19 11:01 Temperature 98.2 F Pulse Rate 50 L 50 L 50 L Respiratory Rate 10 L 10 L 10 L Blood Pressure 94/51 L 90/44 L Pulse Oximetry 96 96 96 10/20/19 11:08 10/20/19 13:00 Temperature Pulse Rate 50 L 63 Respiratory Rate 11 L 10 L Blood Pressure 94/54 L 178/73 H Pulse Oximetry 96 94 Fraction of Inspired Oxygen 35 Oxygen Delivery Method Mechanical Ventilation Oxygen Flow Rate 35 Narrative Exam Narrative: GENERAL APPEARANCE: chronicall ill appearing female, appears older than stated age, no acute distress, intubated and sedated. SKIN: Inspection of the skin reveals no rashes, ulcerations or petechiae. HEENT: Normocephalic atraumatic. ETT in place, mucous membranes appear dry. NECK: Supple and symmetric. There was no thyroid enlargement, and no tenderness, or masses were felt. CHEST: Normal AP diameter and normal contour without any kyphoscoliosis. LUNGS: Auscultation of the lungs revealed no wheezes, rhonchi, or rales. mechanical breath sounds. CARDIOVASCULAR: There was a regular rate and rhythm without any murmurs, gallops, rubs. Peripheral pulses were 2+ and symmetric. ABDOMEN: Soft and nondistended. No ascites was noted. MUSCULOSKELETAL: There was no tenderness or effusions noted. Muscle tone were normal with some wasting. EXTREMITIES: No cyanosis, clubbing or edema. There is a prior R foot amputation with well appearing incisional scar. scattered but well appearing lower extremit y wounds. NEUROLOGIC: intubated and sedated. when on versed and undersedated picking at lines. Objective Labs Result Diagrams: 10/20/19 05:15 10/20/19 05:15 Labs: Laboratory Results - last 24 hr 10/20/19 10/20/19 10/20/19 05:15 05:15 12:45 WBC 13.9 H RBC 3.18 L Hgb 9.4 L Hct 29.2 L MCV 92.0 MCH 29.7 MCHC 32.3 RDW 14.1 Plt Count 202 Neut % (Auto) 70.0 Lymph % (Auto) 17.3 L [place] % (Auto) 9.9 Eos % (Auto) 2.0 Baso % (Auto) 0.8 Neut # (Auto) 9700 H Lymph # (Auto) 2400 [place] # (Auto) 1400 H Eos # (Auto) 300 Baso # (Auto) 100 Sodium 139 Potassium 3.2 L Chloride 108 H Carbon Dioxide 27 BUN 58 H Creatinine 2.79 H Estimated GFR 17.1 L BUN/Creatinine Ratio 20.8 Glucose 128 H D Calcium 7.6 L Magnesium 1.7 Total Bilirubin 0.4 Conjugated Bilirubin 0.0 Unconjugated Bilirubin 0.2 AST 24 ALT 18 Alkaline Phosphatase 88 Total Protein 5.1 L Albumin 2.6 L Globulin 2.5 Albumin/Globulin Ratio 1.0 CSF Total Protein 63 H Assessment & Plan Assessment & Plan narrative: Kemi Alberto is a 63-year-old female with past medical history of poorly controlled diabetes, hypertension, hyperlipidemia, peripheral vascular disease with prior right toe amputation who initially presented to the [facility] emergency room with altered mental status and combative behavior. She was transferred here to the emergency room as there was no CT imaging available at [facility]. CT imaging showed a negative head CT, and mild colitis but no overt source for her confusion at this time. 1. Toxic metabolic encephalopathy, acute, present on admission - remains intubated and sedated. Differential is broad but includes infectious etiologies although there is no overt evidence of infection despite leukocytosis and mild distal colitis. Leukocytosis has improved without antibiotics to this point. Further differential includes ingestion (+marijuana on UDS or other substance), unknown EtOH history as well so this may represent withdrawal, or metabolic issue given possible HHS at [facility] with glucose of 550. Futher if uncontrolled HTN consider PRESS syndrome, hypertensive encephalopathy, or CVA although unable to do a reliable neurological exam at this time and according to ER provider and no focal deficits were noted. No fever or nuchal rigidity and LP negative. CT head negative for abnormal ventricular size. - consider MRI depending on response to continued sedation trials. Patient agitated today but also hold paranoia about hospitals per . -blood cultures without growth, no evidence of diarrhea while admitted. - TSH unremarkable at 1.52 - LP with negative meningitis panel, 1 WBC, 1 RBC, glucose 83 and protein mildly elevated at 63. Opening pressure was 23. - Leukocytosis continues to improve without administration of antibiotics. - if remains intubated tomorrow will start nutrition therapy. 2. Acute kidney injury, present on admission. - likely seoncdary to pre-renal azotemia given presentation and possible HHS. No overt infectious signs other than mild colitis on CT imaging. - renal ultrasound unremarkable today. - as Cr continues to rise may be related to sedating medications. Will continue to trial sedation and attempt to extubate. 3. Type 2 diabetes, with hyperglycemia and possible HHS, present on admission - Patient takes long acting insulin at home, on a continuous glucose monitor at home which reports was alarming a lot prior to this episode, he reports frequent lows and highs. - Will continue long acting at 15 units, q6hr sliding scale. Sugars are improved while NPO. - A1c at 9.3%. 4. Colitis - unclear etiology at this time. No reports of diarrhea per ER providers. did report recent nausea/vomiting and diarrhea consistent with a possible viral illness however there has been no episodes here. - will hold on IV antibiotics as no diarrhea here. - ordered GI panel, not sent at this time due to lack of stools. 5. Hypertensive emergency - patient appears to be on multiple agents for blood pressure and was profoundly hypertensive on admission. May have had encephalopathy due to hypertension as discussed above. troponin did elevate as high as 0.216 but then downtrended. Further end orgna damange includes kidney function as noted above with Creatinine rising today to 2.42. - continue coreg 6.25 mg home dosing. Will add additional agents. IF difficult to control further or seemingly intermittently elevated, consider pheo workup although patient is not profoundly diaphoretic or sweaty and does not have tachycardia when she is hypertensive. 6. HLD - continues crestor. 7. PVD - continue asa 8. hypothyroidism, continue levothyroxine. Code: full at this time given unclear prior wishes, unable to discuss surrogate decision maker however at bedside. Dispo: Remains ICU. I spent 35 minutes of critical care time in the management of this patient. Quality VTE Deep Vein Thrombosis/Pulmonary Embolism Present on Admission: No
[2019-10-20 13:31] LABS: Glucose CSF 86 mg/dL (40-70)
[2019-10-20 13:36] LABS: Appearance CSF Clear (Clear); CSF Tube Number 3; CSF Tube Volume 2.5 mL; Color CSF Colorless (Colorless)
[2019-10-20 13:37] LABS: Red Blood Cell CSF 1 RBC /uL; White Blood Cell CSF 1 MONO/uL (0-5)
[2019-10-20 14:24] LABS: HOLD TUBE CSF OK
[2019-10-20 14:42] LABS: Bacteria Urine None Seen; RBC Urine None Seen (0-5/HPF); WBC Urine None Seen (0-5/HPF)
[2019-10-20 14:43] LABS: Appearance Urine UA CLEAR; Bilirubin Urine UA NEGATIVE (NEGATIVE); Color Urine UA YELLOW; Glucose Urine UA NEGATIVE (Negative); Ketones Urine UA NEGATIVE (NEGATIVE); Leukocyte Esterase Urine UA NEGATIVE (NEGATIVE); Nitrite Urine UA NEGATIVE (Negative); Occult Blood Urine UA TRACE-LYSED (Negative); Protein Urine UA 3+ (Negative); Urobilinogen Urine UA 0.2 E.U./dL (0.2)
[2019-10-20 14:47] LABS: Culture Indicated Urine Cult Not Indicated; Granular Casts Urine 0-1/LPF; Hyaline Casts Urine 0-1/LPF
--- NOTE | 2019-10-20 14:49 | DI.RAD.S_ITS ---
PROCEDURE: XR CHEST 1V INDICATIONS: change in lung exam, intubated TECHNIQUE: One view of the chest was acquired. COMPARISON: [facility], CR, XR CHEST 1V, 10/18/2019, 22:11. FINDINGS: Surgical changes and devices: Endotracheal tube with the tip projecting approximately 3 cm above the rodolfo. Enteric tube also noted with the tip projecting in the stomach. There is a right internal jugular central venous catheter with the tip projecting in the upper SVC. Lungs and pleura: Lungs are clear. No pleural effusions or pneumothorax. Mediastinum: Mediastinal contours appear normal. Heart size is normal. Bones and chest wall: No suspicious bony lesions. Overlying soft tissues appear unremarkable. IMPRESSION: Support equipment as above. No acute consolidation. Dictated by: Matias Gurrola M.D. on 10/20/2019 at 16:51 Approved by: Matias Gurrola M.D. on 10/20/2019 at 16:55
[2019-10-20] MEDS: ASPIRIN EC 325 MG TABLET PO (14:53)
[2019-10-20] MEDS: carvediloL 6.25 MG TABLET PO (14:53)
[2019-10-20] MEDS: HEPARIN 5,000 UNIT/ML VIAL 5000 UNIT SUBCUT ×2 (14:54→20:29)
[2019-10-20 15:01] LABS: Cryptococcus neoformans/gattii Not Detected (Not Detect); Enterovirus Not Detected (Not Detect); Escherichia coli K1 Not Detected (Not Detect); Haemophilus influenzae Not Detected (Not Detect); Herpes simplex virus 1 Not Detected (Not Detect); Herpes simplex virus 2 Not Detected (Not Detect); Human herpesvirus 6 Not Detected (Not Detect); Human parechovirus Not Detected (Not Detect); Listeria monocytogenes Not Detected (Not Detect); Neisseria meningitidis Not Detected (Not Detect); Streptococcus agalactiae Not Detected (Not Detect); Streptococcus pneumoniae Not Detected (Not Detect); Varicella Zoster Virus Not Detected (Not Detecte)
[2019-10-20 15:05] LABS: PCO2 ABG 43.6 mmHg (35-45); PO2 ABG 69 mmHg (80-100); pH ABG 7.35 (7.35-7.45)
[2019-10-20 15:08] LABS: HCO3 ABG 24 mmol/L (22-26); Oxygen Saturation ABG 93 % (95-100); TCO2 ABG 25 mmol/L (21-31)
[2019-10-20 15:09] LABS: Fractionated Inspired Oxygen 35
[2019-10-20] MEDS: fentaNYL 1,000 MCG in DEXTROSE 5% IN WATER 230 ML 32.85 ML IV (16:28)
[2019-10-20] MEDS: POTASSIUM CHLORIDE 20 MEQ/15 ML UDC 40 MEQ PO (18:28)
[2019-10-20] MEDS: ROSUVASTATIN 10 MG TABLET PO (20:29)
[2019-10-20] MEDS: INSULIN DETEMIR 100 UNIT/ML INSULN.PEN 15 UNIT SUBCUT (22:11)
[2019-10-20] MEDS: propofoL 1,000 MG/100 ML VIAL 13.095 MG IV (23:34)
[2019-10-21] VITALS (35 sets, daily range): BP systolic 153–237; BP diastolic 67–101; PULSE 42–77; RESP 10–27; TEMP 36.1–36.7; O2SAT 88–100
[2019-10-21] MEDS: fentaNYL 1,000 MCG in DEXTROSE 5% IN WATER 230 ML 24.638 ML IV (00:08)
--- NOTE | 2019-10-21 03:32 | PC.NURSE ---
Patient remains intubated. 40% FiO2, PEEP 5, TV 450, RR 10. Propofol increased to 50 mcg at shift change due to patient being agitated. Fentanyl at 1 mcg. OG output 150. Patient's HR has trended down and holds in 40's when patient is not agitated and BP remains elevated over 170's. When patient is more alert she opens her eyes but does not track or make eye contact. She shook her head once, but that has been her only sign of communication/awareness. Patient's eyes are otherwise fixed upward, but pupils are reactive. Provider has been made aware with no new orders at this time.
[2019-10-21] MEDS: diazePAM 10 MG/2 ML SYRINGE 5 MG IV (04:01)
[2019-10-21 05:54] LABS: Add Manual Diff / Slide Review NO; Basophils Absolute Auto 100 /uL (0-100); Basophils Percent Auto 0.6 % (0-2); Eosinophils Absolute Auto 1100 /uL (0-450); Eosinophils Percent Auto 11.2 % (2-4); Hematocrit 29.5 % (36-46); Hemoglobin 9.7 g/dL (12.0-16.0); Lymphocytes Absolute Auto 1700 /uL (1100-4500); Lymphocytes Percent Auto 17.3 % (25-40); Mean Corpuscular Volume 90.9 fL (80-100); Monocytes Absolute Auto 1000 /uL (0-900); Monocytes Percent Auto 10.2 % (3-14); Neutrophils Absolute Auto 6100 /uL (1500-7000); Neutrophils Percent Auto 60.7 % (50-75); Platelet Count 198 X10^3/uL (150-400); Red Blood Cell Count 3.24 X10^6/uL (4.0-5.2); Red Cell Distribution Width 13.9 % (11.6-14.8)
--- NOTE | 2019-10-21 05:59 | PC.NURSE ---
Assumed care of Pt @ 0300, IJ triple lumen infusing Propofol @ 50mcg/kg/min and Fentanyl 1mcg/kg/hr. Pt sitting up in bed, attempting to pull out lines/ETT, PRN Valium given. Titration per APR. ETT is 24cm @ teeth. Pt will open eyes to sound or touch, but unable to track or follow commands, squeeze hands ect.
[2019-10-21 06:01] LABS: Alanine Aminotransferase 33 IU/L (<35); Albumin 2.6 g/dL (3.5-5.0); Alkaline Phosphatase 137 U/L (38-126); Aspartate Aminotransferase 46 IU/L (14-36); BUN Creatinine Ratio 23.7 (6-22); Bilirubin Total 0.5 mg/dL (0.2-1.3); Bilirubin Unconjugated 0.2 mg/dL (0.0-1.1); Blood Urea Nitrogen 45 mg/dL (7-17); Calcium 7.8 mg/dL (8.4-10.2); Carbon Dioxide 23 mmol/L (22-32); Chloride 111 mmol/L (98-107); Estimated Glomerular Filt Rate 26.7 mL/min (>60); Globulin 2.6 g/dL (1.7-4.1); Glucose 113 mg/dL (80-110); HEMOLYSIS < 15 (0-50); Magnesium 1.7 mg/dL (1.6-2.3); Potassium 3.2 mmol/L (3.4-5.1); Sodium 140 mmol/L (137-145); Total Protein 5.2 g/dL (6.3-8.2)
[2019-10-21] MEDS: AMLODIPINE 5 MG TABLET 10 MG PO (08:08)
[2019-10-21] MEDS: carvediloL 6.25 MG TABLET PO (08:08)
[2019-10-21] MEDS: ASPIRIN EC 325 MG TABLET PO (08:15)
[2019-10-21] MEDS: PANTOPRAZOLE 40 MG VIAL IV (08:15)
[2019-10-21] MEDS: HEPARIN 5,000 UNIT/ML VIAL 5000 UNIT SUBCUT (08:15)
[2019-10-21] MEDS: POTASSIUM CHLORIDE 40 MEQ in SODIUM CHLORIDE 0.9% 500 ML 130 ML IV (08:17)
[2019-10-21] MEDS: LEVOTHYROXINE 75 MCG TABLET PO (08:18)
[2019-10-21] MEDS: SODIUM CHLORIDE 0.9% 1,000 ML 75 ML IV (10:22)
[2019-10-21] MEDS: propofoL 1,000 MG/100 ML VIAL 16.005 MG IV ×2 (11:09→16:34)
[2019-10-21] MEDS: fentaNYL 1,000 MCG in DEXTROSE 5% IN WATER 230 ML 32.85 ML IV (11:58)
--- NOTE | 2019-10-21 12:15 | DI.CT.S_ITS ---
PROCEDURE: CT HEAD/BRAIN WO CON INDICATIONS: Right-sided hemiparesis TECHNIQUE: Noncontrast 4.5 mm thick angled axial sections acquired from the foramen magnum to the vertex, with coronal and sagittal reformats. For radiation dose reduction, the following was used: automated exposure control, adjustment of mA and/or kV according to patient size. COMPARISON: [facility], CT, CT HEAD/BRAIN WO CON, 10/18/2019, 17:27. FINDINGS: Image quality: Excellent. CSF spaces: The ventricles and basilar cisterns are patent. No abnormal extra-axial fluid collection. Brain: No evidence of intracranial hemorrhage. New hypoattenuation with decreased wheeler-white matter differentiation involving the right lentiform nucleus and adjacent white matter, along with similar patchy hypoattenuation in decreased wheeler-white matter differentiation in the right anterolateral temporal lobe. No findings of mass effect or midline shift. Skull and face: Calvarium and visualized facial bones are intact, without suspicious lesions. No acute orbital abnormality. Sinuses: Visualized sinuses and mastoids are predominantly clear. IMPRESSION: New hypoattenuation and decreased wheeler-white matter differentiation in the right MCA distribution, specifically involving right basal ganglia a and right anterolateral temporal lobe. Findings are concerning for MCA ischemia. Correlate with clinical symptoms. MRI would be useful for confirmation. Findings were discussed with Dr. Pagan at 2:40 p.m. (PST) on 10/21/2019 Dictated by: [place] M.D. on 10/21/2019 at 14:35 Approved by: Barrington Beach M.D. on 10/21/2019 at 14:40
--- NOTE | 2019-10-21 12:20 | P.PN_ITS ---
Subjective Subjective Date Patient Seen: 10/21/19 Time Patient Seen: 12:20 Interval history: Kemi Alberto is a 63-year-old female with past medical history of poorly controlled diabetes, hypertension, hyperlipidemia, peripheral vascular disease with prior right toe amputation who initially presented to the [facility] emergency room with altered mental status and combative behavior. She ultimately needed to be sedated and intubated at the [facility] Emergency Room. She was transferred here to the lack of availability of CT imaging. She was admitted for a toxic metabolic encephalopathy of unknown etiology. Sedation trial was again attempted but patient became agitated again and pulled at lines and was not following commands. Consent was then obtained for lumbar puncture from the patient's . Lumbar puncture showed a normal glucose 86, mildly elevated protein at 63, but 1 white blood cell and 1 red blood cell and the color was clear. Meningitis panel was negative. Her kidney function improved today. She appears more stable. She was able to follow commands this morning with nursing but did not move her left side. Will attempt to extubate today if repeat CT head is negative to be able to perform an MRI. Currently working on getting access with 2 peripheral IVs, removing central line, and having staff available for what will likely be a combative patient upon extubation and waking given previous trials. Exam Vital Signs (past 8 hours): - 10/21/19 05:00 10/21/19 06:00 10/21/19 08:00 Temperature 97.2 F L Pulse Rate 77 54 L 50 L Respiratory Rate 19 10 L 10 L Blood Pressure 154/67 H 197/77 H Pulse Oximetry 96 95 99 10/21/19 08:08 10/21/19 09:00 10/21/19 10:00 Temperature Pulse Rate 50 L 53 L Respiratory Rate 21 Blood Pressure 197/77 H 192/81 H Pulse Oximetry 98 88 L 10/21/19 12:05 Temperature Pulse Rate 47 L Respiratory Rate 11 L Blood Pressure 153/69 H Pulse Oximetry 98 Fraction of Inspired Oxygen 40 Oxygen Delivery Method Mechanical Ventilation Oxygen Flow Rate 40 Narrative Exam Narrative: GENERAL APPEARANCE: chronicall ill appearing female, appears older than stated age, no acute distress, intubated and sedated. SKIN: Inspection of the skin reveals no rashes, ulcerations or petechiae. HEENT: Normocephalic atraumatic. ETT in place, mucous membranes appear mosit. NECK: Supple and symmetric. There was no thyroid enlargement, and no tenderness, or masses were felt. CHEST: Normal AP diameter and normal contour without any kyphoscoliosis. LUNGS: Auscultation of the lungs revealed no wheezes, rhonchi, or rales. mechanical breath sounds. CARDIOVASCULAR: There was a bradycardic rate and rhythm without any murmurs, gallops, rubs. Peripheral pulses were 2+ and symmetric. ABDOMEN: Soft and nondistended. No ascites was noted. MUSCULOSKELETAL: There was no tenderness or effusions noted. Muscle tone normal with some muscle wasting. EXTREMITIES: No cyanosis, clubbing or edema. There is a prior R foot amputation with well appearing incisional scar. left lower extremity likely venous ulcer that is well healing and currently dressing is c/d/i. NEUROLOGIC: intubated and sedated. when on versed and undersedated picking at lines. Reportedly not moving L side per nursing staff. Objective Labs Result Diagrams: 10/21/19 05:40 10/21/19 05:40 Labs: Laboratory Results - last 24 hr 10/20/19 10/20/19 10/20/19 12:45 12:45 12:45 WBC RBC Hgb Hct MCV MCH MCHC RDW Plt Count Neut % (Auto) Lymph % (Auto) [place] % (Auto) Eos % (Auto) Baso % (Auto) Neut # (Auto) Lymph # (Auto) [place] # (Auto) Eos # (Auto) Baso # (Auto) ABG pH ABG pCO2 ABG pO2 ABG HCO3 ABG Total CO2 ABG O2 Saturation ABG Base Excess FiO2 Sodium Potassium Chloride Carbon Dioxide BUN Creatinine Estimated GFR BUN/Creatinine Ratio Glucose Calcium Magnesium Total Bilirubin Conjugated Bilirubin Unconjugated Bilirubin AST ALT Alkaline Phosphatase Total Protein Albumin Globulin Albumin/Globulin Ratio Urine Color Urine Appearance Urine pH Ur Specific Forbes Urine Protein Urine Glucose (UA) Urine Ketones Urine Occult Blood Urine Nitrate Urine Bilirubin Urine Urobilinogen Ur Leukocyte Esterase Urine RBC Urine WBC Urine Bacteria Hyaline Casts Granular Casts Ur Culture Indicated? CSF Tube Number 3 CSF Volume 2.5 ml CSF Appearance Clear CSF Color Colorless CSF WBC 1 CSF RBC 1 CSF Mononuclear WBCs TNP CSF Polynuclear WBCs TNP CSF Glucose CSF Total Protein 63 H CSF C.neoform/gat PCR Not detected CSF CMV DNA (PCR) Not detected CSF Enterovirus (PCR) Not detected CSF E. coli (PCR) Not detected CSF H. influenzae (PCR) Not detected CSF HSV I (PCR) Not detected CSF HSV II (PCR) Not detected CSF HHV 6 (PCR) Not detected CSF L.monocytogenes PCR Not detected CSF N. meningitidis PCR Not detected CSF Parechovirus (PCR) Not detected CSF S. agalactiae (PCR) Not detected CSF S. pneumoniae (PCR) Not detected CSF VZV (PCR) Not detected 10/20/19 10/20/19 10/20/19 13:23 13:25 14:10 WBC RBC Hgb Hct MCV MCH MCHC RDW Plt Count Neut % (Auto) Lymph % (Auto) [place] % (Auto) Eos % (Auto) Baso % (Auto) Neut # (Auto) Lymph # (Auto) [place] # (Auto) Eos # (Auto) Baso # (Auto) ABG pH 7.35 ABG pCO2 43.6 ABG pO2 69 L ABG HCO3 24 ABG Total CO2 25 ABG O2 Saturation 93 L ABG Base Excess -2.0 FiO2 35 Sodium Potassium Chloride Carbon Dioxide BUN Creatinine Estimated GFR BUN/Creatinine Ratio Glucose Calcium Magnesium Total Bilirubin Conjugated Bilirubin Unconjugated Bilirubin AST ALT Alkaline Phosphatase Total Protein Albumin Globulin Albumin/Globulin Ratio Urine Color Yellow Urine Appearance Clear Urine pH 5.0 Ur Specific Forbes 1.020 Urine Protein 3+ H Urine Glucose (UA) Negative Urine Ketones Negative Urine Occult Blood Trace-lysed Urine Nitrate Negative Urine Bilirubin Negative Urine Urobilinogen 0.2 Ur Leukocyte Esterase Negative Urine RBC None seen Urine WBC None seen Urine Bacteria None seen Hyaline Casts 0-1/lpf Granular Casts 0-1/lpf Ur Culture Indicated? Cult not indicated CSF Tube Number CSF Volume CSF Appearance CSF Color CSF WBC CSF RBC CSF Mononuclear WBCs CSF Polynuclear WBCs CSF Glucose 86 H CSF Total Protein CSF C.neoform/gat PCR CSF CMV DNA (PCR) CSF Enterovirus (PCR) CSF E. coli (PCR) CSF H. influenzae (PCR) CSF HSV I (PCR) CSF HSV II (PCR) CSF HHV 6 (PCR) CSF L.monocytogenes PCR CSF N. meningitidis PCR CSF Parechovirus (PCR) CSF S. agalactiae (PCR) CSF S. pneumoniae (PCR) CSF VZV (PCR) 10/21/19 10/21/19 05:40 05:40 WBC 10.0 RBC 3.24 L Hgb 9.7 L Hct 29.5 L MCV 90.9 MCH 30.0 MCHC 33.0 RDW 13.9 Plt Count 198 Neut % (Auto) 60.7 Lymph % (Auto) 17.3 L [place] % (Auto) 10.2 Eos % (Auto) 11.2 H Baso % (Auto) 0.6 Neut # (Auto) 6100 Lymph # (Auto) 1700 [place] # (Auto) 1000 H Eos # (Auto) 1100 H Baso # (Auto) 100 ABG pH ABG pCO2 ABG pO2 ABG HCO3 ABG Total CO2 ABG O2 Saturation ABG Base Excess FiO2 Sodium 140 Potassium 3.2 L Chloride 111 H Carbon Dioxide 23 BUN 45 H Creatinine 1.90 H Estimated GFR 26.7 L BUN/Creatinine Ratio 23.7 H Glucose 113 H Calcium 7.8 L Magnesium 1.7 Total Bilirubin 0.5 Conjugated Bilirubin 0.0 Unconjugated Bilirubin 0.2 AST 46 H ALT 33 Alkaline Phosphatase 137 H D Total Protein 5.2 L Albumin 2.6 L Globulin 2.6 Albumin/Globulin Ratio 1.0 Urine Color Urine Appearance Urine pH Ur Specific Forbes Urine Protein Urine Glucose (UA) Urine Ketones Urine Occult Blood Urine Nitrate Urine Bilirubin Urine Urobilinogen Ur Leukocyte Esterase Urine RBC Urine WBC Urine Bacteria Hyaline Casts Granular Casts Ur Culture Indicated? CSF Tube Number CSF Volume CSF Appearance CSF Color CSF WBC CSF RBC CSF Mononuclear WBCs CSF Polynuclear WBCs CSF Glucose CSF Total Protein CSF C.neoform/gat PCR CSF CMV DNA (PCR) CSF Enterovirus (PCR) CSF E. coli (PCR) CSF H. influenzae (PCR) CSF HSV I (PCR) CSF HSV II (PCR) CSF HHV 6 (PCR) CSF L.monocytogenes PCR CSF N. meningitidis PCR CSF Parechovirus (PCR) CSF S. agalactiae (PCR) CSF S. pneumoniae (PCR) CSF VZV (PCR) Assessment & Plan Assessment & Plan narrative: Kemi Alberto is a 63-year-old female with past medical history of poorly controlled diabetes, hypertension, hyperlipidemia, peripheral vascular disease with prior right toe amputation who initially presented to the [facility] emergency room with altered mental status and combative behavior. She was transferred here to the emergency room as there was no CT imaging available at [facility]. CT imaging showed a negative head CT, and mild colitis but no overt source for her confusion at this time. 1. Toxic metabolic encephalopathy, acute, present on admission - remains intubated and sedated. Differential is broad but includes infectious etiologies although there is no overt evidence of infection despite leukocytosis and mild distal colitis. Leukocytosis has improved without antibiotics to this point. Further differential includes ingestion (+marijuana on UDS or other substance), unknown EtOH history as well so this may represent withdrawal, or metabolic issue given possible [facility] at [facility] with glucose of 550. Futher if uncontrolled HTN consider PRESS syndrome, hypertensive encephalopathy, or CVA although unable to do a reliable neurological exam at this time and according to ER provider and no focal deficits were noted. No fever or nuchal rigidity and LP negative. CT head negative for abnormal ventricular size. - consider MRI. Will repeat head CT now that we are further out to see if there are changes consistent with an acute CVA. Patient agitated but also hold parano ia about hospitals per . She was not moving left side per nursing staff today. If CT head is negative will proceed with extubation to further assess mental status. -blood cultures without growth, no evidence of diarrhea while admitted. - TSH unremarkable at 1.52 - LP with negative meningitis panel, 1 WBC, 1 RBC, glucose 83 and protein mildly elevated at 63. Opening pressure was 23. - Leukocytosis continues to improve without administration of antibiotics. - if remains intubated today will start tube feedings. 2. Acute kidney injury, present on admission. - likely secondary to pre-renal azotemia given presentation and possible HHS or hypertensive emergency. No overt infectious signs other than mild colitis on CT imaging. Creatinine beginning to improve today. - renal ultrasound unremarkable. 3. Type 2 diabetes, with hyperglycemia and possible HHS, present on admission - Patient takes long acting insulin at home, on a continuous glucose monitor at home which reports was alarming a lot prior to this episode, he reports frequent lows and highs. - Will continue long acting at 15 units, q6hr sliding scale. Sugars are improved while NPO. - A1c at 9.3%. 4. Colitis - unclear etiology at this time. No reports of diarrhea per ER providers. did report recent nausea/vomiting and diarrhea consistent with a possible viral illness however there has been no episodes here. - will hold on IV antibiotics as no diarrhea here. - ordered GI panel, not sent at this time due to lack of stools. 5. Hypertensive emergency - patient appears to be on multiple agents for blood pressure and was profoundly hypertensive on admission. May have had encephalopathy due to hyp ertension as discussed above. troponin did elevate as high as 0.216 but then downtrended. Further end orgna damange includes kidney function as noted above with Creatinine rising today to 2.42. - continue coreg 6.25 mg home dosing. Will add additional agents. IF difficult to control further or seemingly intermittently elevated, consider pheo workup although patient is not profoundly diaphoretic or sweaty and does not have tachycardia when she is hypertensive. - given reports of left hemiparesis HTN may have been in the setting of acute CVA. 6. HLD - continues crestor. 7. PVD - continue asa 8. hypothyroidism, continue levothyroxine. Code: full at this time given unclear prior wishes, unable to discuss surrogate decision maker however at bedside. Dispo: Remains ICU. I spent 35 minutes of critical care time in the management of this patient. Quality VTE Deep Vein Thrombosis/Pulmonary Embolism Present on Admission: No
--- NOTE | 2019-10-21 14:37 | DIET.PN ---
Dietary Progress Note Assessment: 63y F admitted via transfer from [facility] for CT scan referred to nutrition for NPO on ventilator status. Pt is d3 on ventilator, RT there to start extubation now. Pt getting minimal kcals from dextrose and propofol HT: 152.4cm WT: 61kg BMI: 26.3 Diet Order: NPO Monitoring/Evaluations: following extubation, recc nutrition support if remains on vent, recc soft diet per SLT reccs once okay for POs
--- NOTE | 2019-10-21 14:55 | PC.NURSE ---
pt remains intubated and sedated on vent at 40%-ct performed , pt remains occ awake with upward and to the right gaze update to
--- NOTE | 2019-10-21 16:18 | CM.DPC ---
DCP/Continued: Reviewed chart. Patient remains intubated. Patient's spouse/Velasquez not at bedside today. Dr. Pagan reports that patient may need to be transferred to higher level of care for neurology. P: CM team to continue to follow closely. If patient remains intubated, CM team to call spouse for previous level of function/assessment questions. CLARENCE Francisco
--- NOTE | 2019-10-21 17:15 | PM.DS.1 ---
History of Present Illness History of Present Illness Date Patient Seen: 10/21/19 Time Patient Seen: 17:15 Chief complaint: Intubated, needs CT, from [facility] Narrative: Kemi Alberto is a 63-year-old female with past medical history of poorly controlled diabetes, hypertension, hyperlipidemia, peripheral vascular disease with prior right toe amputation who initially presented to the [facility] emergency room with altered mental status and combative behavior. EMS was reportedly called by the patient's son-in-law as per [facility] ER documentation. Patient became combative, with poor venous access and had a central line placed and was intubated so that further imaging could be performed. However, the [facility] CT scan was not working so the patient was transferred to [facility] so the imaging could be done. Initial labs done at [facility] showed a respiratory alkalosis, mild leukocytosis with a white blood cell count of 23, and a glucose of 550. She was not in DKA but was started on insulin drip at [facility] for transfer. She was placed on fentanyl and propofol for transfer, but was agitated and attempting to remove lines upon arrival to the ER. She was then switched to fentanyl and Versed. CT imaging was done which showed a negative head CT, and CT of her chest abdomen pelvis was fairly unremarkable except for some mild inflammatory changes of her distal esophagus as well as left colon. Given her peripheral vascular disease did discuss with general surgery who was not impressed with the level of inflammation in her colon did not think that this was likely ischemia. She initially had a lactate of [address] [facility] which improved to 2.0 on repeat here. She also had a creatinine of 2.0 to be General that improved to 1.78 after initial fluid management. Urine drug screening was positive here for marijuana, and benzodiazepines although the patient was given Ativan at [facility]. Discharge Providers Provider Date of admission: 10/18/19 18:57 Discharge Date: 10/21/19 Primary care physician: Reshma Lemus MD Consults: 10/19/19 15:33 Consult to Dietitian, Adult Routine Comment: Reason For Exam: intubation, protein calorie malnutrition Discharge provider: Misael Pagan DO Summary Hospital Course Discharge Diagnosis: Please see hospital course by problem list noted below Hospital Course: Kemi Alberto is a 63-year-old female with past medical history of poorly controlled diabetes, hypertension, hyperlipidemia, peripheral vascular disease with prior right toe amputation who initially presented to the [facility] emergency room with altered mental status and combative behavior. She was transferred here to the emergency room as there was no CT imaging available at [facility]. CT imaging showed a negative head CT, and mild colitis but no overt source for her confusion at this time. 1. Probable acute CVA, unknown if present on admission - Initial head CT on admission was negative. Repeat 4 days after admission after nursing staff reported decreased movement of her left side showed New hypoattenuation and decreased wheeler-white matter differentiation in the right MCA distribution, specifically involving right basal ganglia a and right anterolateral temporal lobe. Findings are concerning for MCA ischemia. Correlate with clinical symptoms. MRI would be useful for confirmation. - Discussed with silk soaker Dr. [facility] for transfer for higher level of care. Unable to perform MRI here while intubated and unable to extubate patient safely at this time given need for MRI. - patient is on asa 325 mg daily prior to admission. 2. Possible Toxic metabolic encephalopathy, acute, present on admission - remains intubated and sedated. Differential is broad but includes infectious etiologies although there is no overt evidence of infection despite leukocytosis and mild distal colitis. Leukocytosis has improved to 10 from 20 without antibiotics to this point. Further differential includes ingestion (+marijuana on UDS or other substance), unknown EtOH history as well so this may represent withdrawal, or metabolic issue given possible HHS at [facility] with glucose of 550. Futher if uncontrolled HTN consider PRESS syndrome, hypertensive encephalopathy, or CVA. After CT imaging showing R basal ganglia and possible right temporal lobe lesions this makes acute CVA much more likely. - transfer to [facility] for higher level of care, able to perform MRI while sufficiently sedated, neurology consultation. -blood cultures without growth, no evidence of diarrhea during admission. UA negative. - TSH unremarkable at 1.52 - LP with negative meningitis panel, 1 WBC, 1 RBC, glucose 83 and protein mildly elevated at 63. Opening pressure was 23. - Leukocytosis continues to improve without administration of antibiotics. - have not started supplemental nutrition. Was planning to extubate today if CT head negative. - Patient was transferred of 55 propofol, 2 fentanyl and 75 cc of normal saline running via midline and a peripheral IV. - Central line was discontinued on 10/20 which was placed in [facility] ER in anticipation of possible extubation. 2. Acute kidney injury, present on admission. - likely secondary to pre-renal azotemia given presentation and possible HHS or hypertensive emergency. No overt infectious signs other than mild colitis on CT imaging. Creatinine peaked at 2.79 and improved to 1.9 today. - renal ultrasound unremarkable. 3. Type 2 diabetes, with hyperglycemia and possible HHS, present on admission - Patient takes long acting insulin at home, on a continuous glucose monitor at home which reports was alarming a lot prior to this episode, he reports frequent lows and highs. - Will continue long acting at 15 units, q6hr sliding scale. Sugars are improved while NPO on this regimen. - A1c at 9.3% on admission. 4. Colitis - unclear etiology at this time. No reports of diarrhea per ER providers. did report recent nausea/vomiting and diarrhea consistent with a possible viral illness however there has been no episodes here. - Held on IV antibiotics as no diarrhea here. - ordered GI panel, not sent at this time due to lack of stools. 5. Hypertensive emergency - patient appears to be on multiple agents for blood pressure and was profoundly hypertensive on admission. May have had encephalopathy due to hypertension as discussed above or acute CVA. troponin did elevate as high as 0.216 but then downtrended. Further end organ damange includes kidney function as noted above with Creatinine rising today to max of 2.79. - continue coreg 6.25 mg home dosing. Blood pressure has been labile going from the low 100s to 210s within an hour without intervention. May be related to agitation when waking. started further on amlodipine 10 mg yesterday with some improvement. - she is bradycardic into the 40s-50s, but when more alert HR has been in the 70s-80s. No block. - given reports of left hemiparesis HTN may have been in the setting of acute CVA. 6. HLD - continued crestor. 7. PVD - continue asa 325. 8. hypothyroidism, continue levothyroxine. Code: full at this time given unclear prior wishes, unable to discuss surrogate decision maker however at bedside. Dispo: Remains ICU, transfer to [facility] for further critical care needs, MRI which can be done with sedation, and possible difficult extubation given mental status / agitation when she wakes up . , Velasquez Cell Phone Time Spent with Patient Time spent: Greater than 30 minutes Exam Vital Signs (past 8 hours): - 10/21/19 10:00 10/21/19 12:05 10/21/19 12:59 Temperature 97.0 F L Pulse Rate 53 L 47 L 45 L Respiratory Rate 21 11 L 10 L Blood Pressure 192/81 H 153/69 H 178/74 H Pulse Oximetry 88 L 98 98 10/21/19 13:00 Temperature Pulse Rate Respiratory Rate Blood Pressure Pulse Oximetry 98 Fraction of Inspired Oxygen 37 Oxygen Delivery Method Mechanical Ventilation Oxygen Flow Rate 40 Narrative Exam Narrative: GENERAL APPEARANCE: chronicall ill appearing female, appears older than stated age, no acute distress, intubated and sedated. SKIN: Inspection of the skin reveals no rashes, ulcerations or petechiae. HEENT: Normocephalic atraumatic. ETT in place, mucous membranes appear moist. NECK: Supple and symmetric. There was no thyroid enlargement, and no tenderness, or masses were felt. CHEST: Normal AP diameter and normal contour without any kyphoscoliosis. LUNGS: Auscultation of the lungs revealed no wheezes, rhonchi, or rales. mechanical breath sounds. CARDIOVASCULAR: There was a bradycardic rate and rhythm without any murmurs, gallops, rubs. Peripheral pulses were 2+ and symmetric. ABDOMEN: Soft and nondistended. No ascites was noted. MUSCULOSKELETAL: There was no tenderness or effusions noted. Muscle tone normal with some muscle wasting. EXTREMITIES: No cyanosis, clubbing or edema. There is a prior R foot amputation with well appearing incisional scar. left lower extremity likely venous ulcer that is well healing and currently dressing is c/d/i. NEUROLOGIC: intubated and sedated. when on versed and undersedated picking at lines. Reportedly not moving L side per nursing staff. Objective Labs Result Diagrams: 10/21/19 05:40 10/21/19 05:40 Labs: Laboratory Results - last 24 hr 10/21/19 10/21/19 05:40 05:40 WBC 10.0 RBC 3.24 L Hgb 9.7 L Hct 29.5 L MCV 90.9 MCH 30.0 MCHC 33.0 RDW 13.9 Plt Count 198 Neut % (Auto) 60.7 Lymph % (Auto) 17.3 L Mcintosh % (Auto) 10.2 Eos % (Auto) 11.2 H Baso % (Auto) 0.6 Neut # (Auto) 6100 Lymph # (Auto) 1700 Mcintosh # (Auto) 1000 H Eos # (Auto) 1100 H Baso # (Auto) 100 Sodium 140 Potassium 3.2 L Chloride 111 H Carbon Dioxide 23 BUN 45 H Creatinine 1.90 H Estimated GFR 26.7 L BUN/Creatinine Ratio 23.7 H Glucose 113 H Calcium 7.8 L Magnesium 1.7 Total Bilirubin 0.5 Conjugated Bilirubin 0.0 Unconjugated Bilirubin 0.2 AST 46 H ALT 33 Alkaline Phosphatase 137 H D Total Protein 5.2 L Albumin 2.6 L Globulin 2.6 Albumin/Globulin Ratio 1.0 Discharge Plan Discharge Plan Disposition: Xfer [facility] Discharge orders & Medications Follow up/Referrals: Reshma Lemus MD [Primary Care Provider] - Discharge Data Primary Care Provider: Reshma Lemus Quality VTE Deep Vein Thrombosis/Pulmonary Embolism Present on Admission: No
--- NOTE | 2019-10-21 18:51 | PC.NURSE ---
Patient transferring to [address] [place] [address] [facility] [place] in [place]. Report given to Minal . Patient transferred by airlift. Patient's personal belongings- glasses, cellphone, and ring were given to airlift crew. Patient's is aware of transfer. At time of transfer patient was on 55 mcg of propofol and 2mcg fentanyl. R forearm PIV, L upper arm midline. BP was elevated and patient bradycardic. FiO2 40%, PEEP 5, TV 450, RR 10. SpO2 99%. Burke.
[2019-10-23 12:12] LABS: HSV 1 DNA Negative (Negative); HSV 2 DNA Negative (Negative)
== END 2019-10-21 18:40 | disposition short-term general hospital (02) | DRG 70 ==
LOC: ED 18:46 → ICU 10-19 14:31
PROVIDERS: Nurse Practitioner Family; Admitting Provider Internal Medicine; Emergency Provider Emergency Medicine; PCP Family Medicine; Referring Provider Emergency Medicine; Visit Provider Internal Medicine
DX: G93.41 Metabolic encephalopathy (principal); I63.9 Cerebral infarction, unspecified; N17.9 Acute kidney failure, unspecified; I16.1 Hypertensive emergency; E11.51 Type 2 diabetes mellitus with diabetic peripheral angiopathy without gangrene; E11.65 Type 2 diabetes mellitus with hyperglycemia; K52.9 Noninfective gastroenteritis and colitis, unspecified; I10 Essential (primary) hypertension; E78.5 Hyperlipidemia, unspecified; G81.94 Hemiplegia, unspecified affecting left nondominant side; Z79.4 Long term (current) use of insulin; F32.9 Major depressive disorder, single episode, unspecified; E03.9 Hypothyroidism, unspecified; Z11.59 Encounter for screening for other viral diseases
CPT/HCPCS: 36415; 36592; 36600; 70450; 71045; 71260; 74177; 76770; 80048; 80053; 80076; 80305; 81001; 82805; 82945; 82962; 83036; 83605; 83735; 84157; 84443; 84484; 85025; 85610; 85730; 87040; 87070; 87205; 87529; 87635; 87797; 87798; 89051; 94002; 94003; 94770; 94799; 99283; 99284; C9113; J1642; J1644; J2250; J2704; J3010; J3360; J3480; Q9967